=== PATIENT | female | born 1945 | race Caucasian/White ===

== ENCOUNTER 2017-09-24 05:58 | Day surgery (SDC) | payer MEDICARE, BC ==
[~2017-09-24 05:58] MED LIST: Buffered Lidocaine 0.9% SYRIN* 5 ML/SYR SYRINGE INTRADERM ONE
[2017-09-24] MEDS ORDERED: NS 0.9% 1000 ML* 1,000 ML IV SCH (06:00)
[2017-09-24] MEDS ORDERED: ceFAZolin 2 GM PREMIX (*) 2 GM/50 ML BAG IVPB ONE (06:01)
[2017-09-24] MEDS ORDERED: Buffered Lidocaine 0.9% SYRIN* 5 ML/SYR SYRINGE ONE (06:01)
[2017-09-24] MEDS ORDERED: Lidocaine 1% MPF wEPI 200,000* 30 ML SDV ONE (07:09)
[2017-09-24] MEDS ORDERED: Midazolam* 1 MG/ML 2 ML VIAL (2 MG) ONE (07:27)
[2017-09-24] MEDS ORDERED: fentaNYL* 50 MCG/ML 2 ML VIAL (100 MCG VIAL) ONE (07:27)
[2017-09-24] MEDS ORDERED: Ondansetron INJ* 2 MG/ML VIAL ONE (08:01)
[2017-09-24] MEDS ORDERED: Famotidine IV* 10 MG/ML 2 ML (20 mg) ONE (08:01)
[2017-09-24] MEDS ORDERED: Propofol* 10 MG/ML 20 ML BTL IV PUSH ONE (08:01)
[2017-09-24] MEDS ORDERED: Lidocaine 2% PF * 5 ML VIAL ONE (08:01)
[2017-09-24] MEDS ORDERED: KETAMINE HCL* 50 MG/ML 10 ML VIAL ONE (08:01)
[2017-09-24] MEDS ORDERED: Dexamethasone IV* 4 MG/ML 1 ML (4 MG) ONE (08:01)
[2017-09-24] MEDS ORDERED: Ondansetron INJ* 2 MG/ML VIAL IV PRN (08:28)
[2017-09-24] MEDS ORDERED: PROCHLORPERAZINE INJ 5 MG/ML 2 ML VIAL IV PRN (08:28)
[2017-09-24] MEDS ORDERED: Acetaminophen TAB* 325 MG PO PRN (08:28)
[2017-09-24] MEDS ORDERED: oxyCODONE/Acetamin 5/325 MG* TAB PO PRN (08:28)
[2017-09-24] MEDS ORDERED: Levalbuterol 0.63MG/3ML NEB* UNIT OF USE INH PRN (08:28)
--- NOTE | 2017-09-24 08:58 | SURGPN ---
Brief Operative Note - Surgery Procedures: Procedures Pre-OP Diagnoses: lung cancer Post-op Diagnosis: same Procedure: Insertion of powerport Surgeon: Tiera Asst: none Anethesia: local, MAC EBL: minimal IVF: minimal Specimen: none Drains: none 8Fr single lumen power port via R SCV
[2017-09-24 09:04] VITALS: BP 99/46
--- NOTE | 2017-09-24 09:24 | RAD ---
INDICATION: chest port placement COMPARISONS: None relevant TECHNIQUE: Fluoroscopy was provided for a vascular access procedure. Total fluoroscopy time is: 17.2 seconds FINDINGS: Spot images demonstrate a right-sided chest port from a sublaminar approach with the tip overlying the cavoatrial junction. Spinal stimulator leads are noted.. IMPRESSION: FLUOROSCOPY WAS PROVIDED FOR A VASCULAR ACCESS PROCEDURE CPT II Codes: 6045F
--- NOTE | 2017-09-25 01:06 | OP ---
CC: [facility]; Dr. Camryn Douglas; Magda Moreira; Dr. Emmy Jeronimo OPERATIVE REPORT: DATE OF OPERATION: 09/24/17 DATE OF : 47 SURGEON: Dago Mott MD SENIOR ADMINISTRATOR SUPPORT: None. ANESTHESIOLOGIST: Dr. Alvarez. ANESTHESIA: Local MAC anesthesia. PRE-OP DIAGNOSIS: Lung cancer. POST-OP DIAGNOSIS: Lung cancer. OPERATIVE PROCEDURE: Insertion of PowerPort. ESTIMATED BLOOD LOSS: Minimal. FLUIDS: Minimal crystalloid fluid given. SPECIMEN: None. DRAINS: An 8-Frisian PowerPort tubing placed via the right subclavian vein. DESCRIPTION OF PROCEDURE: The patient was identified in the preoperative area, marked, brought to [facility] OR and placed on the operating table in supine position. Preoperative antibiotics were given. Se quential devices were placed on bilateral lower extremities. Gentle sedation was given. The patien t's right neck and upper chest were prepped and draped in the standard surgical fashion. Time-out w as performed. Injection of lidocaine along the proposed incision site was carried out. The right subclavian vein was accessed and a wire inserted into the superior vena cava under fluoroscopy. Next, a pocket was made inferior to this stick site that would hold the PowerPort. The wire was then brought into this incision and the vein was dilated under fluoroscopy. A split-away catheter was i nserted and the 8-Frisian tubing inserted and cut to size taking note under fluoroscopy of its positi oning in the appropriate manner. This was then attached to the pre-flush PowerPort along with the h ub and sutured into the pocket with 0 Prolene sutures at the lateral, medial and at the hub site. W ound was irrigated. The port was accessed. Blood was aspirated easily and then it was flushed with saline and then followed with heparinized saline. Defect was reapproximated with 3-0 Vicryl sutures followed by 4-0 Monocryl subcuticular sutures. Steri-Strips and sterile dressing were applied. Th e patient tolerated the procedure well and was awoken up in the OR and transferred to the PACU in st able condition. [id number]/[facility] #: [id number]
== END 2017-09-24 09:25 | disposition home or self-care (01) ==
LOC: OR 05:58
PROVIDERS: ATTEND Surgery
DX: C34.02 Malignant neoplasm of left main bronchus (principal); J44.9 Chronic obstructive pulmonary disease, unspecified; J45.909 Unspecified asthma, uncomplicated; G47.33 Obstructive sleep apnea (adult) (pediatric); Z79.891 Long term (current) use of opiate analgesic; M54.5 Low back pain; Z79.899 Other long term (current) drug therapy
CPT/HCPCS: 71010; 76000; C1788; J0690; J1100; J1642; J2001; J2250; J2405; J2704; J3010

== ENCOUNTER 2017-11-08 14:12 | Inpatient (IN) | payer MEDICARE, BC, OTHER ==
[2017-11-08] MEDS ORDERED: Vancomycin(*) 1,250 MG in NS 0.9% 250 ML* 250 ML IVPB ONE (16:19)
[2017-11-08] MEDS ORDERED: Piperacillin/Tazobac ADVAN(*) 3.375 GM in NS 0.9% 100 ML* 100 ML IVPB ONE (16:20)
[2017-11-08 17:01] LABS: Hematocrit 28 % (35-47); Hemoglobin 9.4 g/dl (12.0-16.0); White Blood Count 0.5 10^3/ul (3.5-10.8)
[2017-11-08 17:03] LABS: Mean Corpuscular HGB Conc 34 g/dl (31-36); Mean Corpuscular Hemoglobin 29 pg (27-31); Mean Corpuscular Volume 88 fL (80-97); Mean Platelet Volume 8 um3 (7.4-10.4); Red Cell Distribution Width 17 % (10.5-15)
[2017-11-08 17:10] LABS: Add Diff/Slide Review? Slide Review Added; Comments Flag Yes
[2017-11-08 17:14] LABS: Albumin 3.3 g/dL (3.2-5.2); BUN/Creatinine Ratio 23.5 (8-20); Calcium 8.9 mg/dL (8.6-10.3); EGFR African American 68.7 (>60); EGFR Non-African American 53.4 (>60); Globulin 2.9 g/dL (2-4); Magnesium 1.7 mg/dL (1.9-2.7); Potassium 4.1 mmol/L (3.5-5.0); Total Bilirubin 0.4 mg/dL (0.2-1.0); Total Protein 6.2 g/dL (6.4-8.9)
[2017-11-08 17:15] LABS: Troponin I 0.01 ng/mL (<0.04)
[2017-11-08] MEDS ORDERED: Iodixanol* (CONTRAST) 320 MG/ML 100 ML SDV IV ONE (17:18)
--- NOTE | 2017-11-08 17:21 | RAD ---
Indication: Shortness of breath. Single frontal view of the chest performed at 1643 hours was reviewed. Comparison is made with previous exam dated September 24, 2017. Central port is in place. Neurostimulator leads are in place. Airspace disease is noted in the both lung bases. Early pneumonia should BE considered. IMPRESSION: BIBASILAR INFILTRATES. CENTRAL PORT IS IN PLACE. NEUROSTIMULATOR LEADS ARE IN PLACE.
[2017-11-08 17:48] LABS: TSH (Thyroid Stimulating Horm) 1.04 mcIU/mL (0.34-5.60)
[2017-11-08] MEDS ORDERED: Acetaminophen TAB* 325 MG PO ONE (18:01)
--- NOTE | 2017-11-08 18:13 | RAD ---
Indication: Dyspnea, lung carcinoma. Contrast: Administered 77.2 ml of VISAPAQUE 320 mg/ml CTA of the chest was performed after IV contrast administration. Coronal and sagittal reconstructed images were obtained. Comparison is made with previous exam dated November 08, 2017 at October 21, 2017. The pulmonary arterial tree is well opacified. No filling defects are noted to suggest pulmonary embolus. Aorta demonstrates no evidence of aortic dissection. No aneurysmal dilatation is noted. Precarinal adenopathy measuring up to 15 mm is noted. AP window lymph node measures up to 11 mm. Subcarinal lymph nodes measure up to 20 mm. Right hilar adenopathy measuring up to 11 mm is noted. The heart demonstrates no pericardial effusion. Areas of airspace disease is noted in the left upper lobe in the left parahilar area, inferior right upper lobe and right lower lobe posteriorly. These demonstrate air bronchograms and the possibility of pneumonia should BE considered. IMPRESSION: No evidence of pulmonary embolus is noted. Mediastinal adenopathy and hilar adenopathy are similar to that present on October 21, 2017. There has been development of airspace disease which may represent inflammatory changes or pneumonia in the left upper lobe, inferior right upper lobe, right lower lobe.
[2017-11-08] MEDS ORDERED: Acetaminophen TAB* 325 MG PO PRN (19:44)
[2017-11-08] MEDS ORDERED: Albuterol 2.5 MG/3 ML NEB.SOL* (0.083%) INH PRN (19:44)
[2017-11-08] MEDS ORDERED: NS 0.9% 1000 ML* 1,000 ML IV ONE (19:44)
[2017-11-08] MEDS ORDERED: NS 0.9% 1000 ML* 1,000 ML IV SCH (19:45)
[2017-11-08] MEDS ORDERED: Magnesium Sulfate 2 GM IV* 2 GM/50 ML BAG IVPB ONE (20:00)
[2017-11-08] MEDS ORDERED: Vancomycin per Pharmacy* NOTE FOLLOW UP PRN (21:55)
--- NOTE | 2017-11-08 22:12 | ED ---
Michael Marroquin Gabriel, scribed for aKrla Vieyra MD on 11/08/17 at 1602 . Shortness of Breath - HPI Summary HPI Summary: This patient is a 72 year old F [facility] accompanied by her daughter with a chief complaint of SOB since 2 days ago. The patient rates the pain 6/10 in severity. Patient reports pain across her shoulders and RAHMAN. Patient denies CP , fever, chills, ear ache, ABD pain, back pain, edema, anxiety, depression, d/v , and melena. Patient has had 2 treatments of chemo for her lung cancer, she also has COPD. A previous CT done at her PCP showed aggressive PNA so she was sent to the ED. - History of Current Complaint Chief Complaint: EDShortnessOfBreath Time Seen by Provider: 11/08/17 15:46 Hx Obtained From: Patient Onset/Duration: Lasting Days - 2, Still Present Current Severity: Moderate Associated Signs & Symptoms: Negative - CP, fever, chills, ear ache, ABD pain, back pain, edema, anxiety, depression, d/v, and melena - Allergy/Home Medications Allergies/Adverse Reactions: Allergies Allergy/AdvReac Type Severity Reaction Status Date / Time Adhesive Tape Allergy Rash And Verified 11/08/17 14:26 Itching Gabapentin Allergy Hives Verified 11/08/17 14:26 Nickel Allergy Rash And Verified 11/08/17 14:26 Itching Atorvastatin [From Lipitor] AdvReac Muscle Ache Verified 11/08/17 14:26 Varenicline [From Chantix] AdvReac Vomiting Verified 11/08/17 14:26 kiwi Allergy diff Uncoded 09/26/17 07:51 breathing, mouth swells Home Medications: Home Medications Calcium Carbonate [Calcium 600] 1,500 mg PO BID 11/08/17 [History Confirmed 07/18] Pramipexole TAB* [Mirapex TAB*] 0.25 mg PO BEDTIME 11/08/17 [History Confirmed 11/08/17] Pregabalin CAP(*) [Lyrica CAP(*)] 100 mg PO TID 11/08/17 [History Confirmed 07/18] Probiotic Product [Acidophilus Probiotic] 1 tab PO DAILY 11/08/17 [History Confirmed 11/08/17] oxyCODONE/Acetamin 10/325(NF) [Percocet 10/325 (NF)] 1 tab PO TID PRN 11/08/17 [ History Confirmed 11/08/17] PMH/Surg Hx/FS Hx/Imm Hx Previously Healthy: No Endocrine/Hematology History: Denies: Hx Diabetes Cardiovascular History: Denies: Hx Hypertension, Hx Pacemaker/ICD, Other Cardiovascular Problems/ Disorders Respiratory History: Reports: Hx Asthma - will bring inhalers, Hx Chronic Bronchitis, Hx Chronic Obstructive Pulmonary Disease (COPD), Hx Sleep Apnea, Other Respiratory Problems/Disorders - malignant neoplasm GI History: Reports: Hx Gastroesophageal Reflux Disease - HX OF, NO PROBLEMS NOW Denies: Other GI Disorders Musculoskeletal History: Reports: Hx Arthritis - THROUGHOUT BODY, Hx Back Problems - spondylolisthesis and spinal stenosis, Other Musculoskeletal History - FIBROMYALGIA Denies: Hx Tendonitis Sensory History: Reports: Hx Contacts or Glasses - GLASSES Denies: Hx Hearing Aid Opthamlomology History: Reports: Hx Contacts or Glasses - GLASSES Neurological History: Reports: Other Neuro Impairments/Disorders - PAIN CLINIC PT Psychiatric History: Denies: Hx Panic Disorder - Cancer History Cancer Type, Location and Year: main bronchus - Surgical History Surgery Procedure, Year, and Place: 2010 - LAMINE[place]OMY, [facility]. 1975- C SECTION, [facility]. Oct 2014 trial dorsal column stimulator, [facility] Hx Anesthesia Reactions: No Infectious Disease History: No Infectious Disease History: Denies: Traveled Outside the [place] in Last 30 Days - Family History Known Family History: Negative: Cardiac Disease - Social History Alcohol Use: None Substance Use Type: Reports: None Substance Use Comment - Amount & Last Used: oxycontin and soma Hx Tobacco Use: Yes Smoking Status (MU): Former Smoker Type: Cigarettes Amount Used/How Often: 1/2-1 PPD X 48 YEARS Length of Time of Smoking/Using Tobacco: SMOKED FOR 45 YEARS Have You Smoked in the Last Year: No Review of Systems Negative: Fever, Chills Negative: Ear Ache Negative: Chest Pain Positive: Shortness Of Breath Negative: Abdominal Pain Musculoskeletal: Negative - back pain Positive: Other - pain across her shoulders . Negative: Edema Positive: Headache Negative: Anxious, Depressed All Other Systems Reviewed And Are Negative: No Physical Exam - Summary Physical Exam Summary: Appearance: Alert, conversive, nontoxic appearing Skin: Warm, dry, no mottling, no rashes, no contusions HEENT: EOMI, PERRL, moist mucous membranes Neck: No masses on the neck, supple Respiratory: Clear to auscultation, breath sounds present, Ronchi and wheezing on the left side, 83% O2 sat on room air while sedentary Cardiovascular: RRR, pulses are symmetrical in both lower and upper extremities Abdomen: Soft, non-tender Bowel Sounds: Present Musculoskeletal: No CVA tenderness, no obvious deformity, moving all extremities in a grossly normal manner Neurological: A&Ox3, CN II-XII Intact, moving all extremities symmetrically Psychiatric: Normal affect and mood Triage Information Reviewed: Yes Vital Signs On Initial Exam: Initial Vitals Temp Pulse Resp BP Pulse Ox 99.1 F 66 16 106/53 92 11/08/17 14:26 11/08/17 14:26 11/08/17 14:26 11/08/17 14:26 11/08/17 14:26 Vital Signs Reviewed: Yes Diagnostics - Vital Signs Vital Signs Temp Pulse Resp BP Pulse Ox 11/08/17 14:26 99.1 F 66 16 106/53 92 - Laboratory Lab Results: Lab Results 11/08/17 11/08/17 11/08/17 Range/Units 16:42 16:42 16:42 WBC 0.5 L (3.5-10.8) 10^3/ul RBC 3.20 L (4.0-5.4) 10^6/ul Hgb 9.4 L (12.0-16.0) g/dl Hct 28 L (35-47) % MCV 88 (80-97) fL MCH 29 (27-31) pg MCHC 34 (31-36) g/dl RDW 17 H (10.5-15) % Plt Count 91 L (150-450) 10^3/ul MPV 8 (7.4-10.4) um3 Neut % (Auto) 29.6 L (38-83) % Lymph % (Auto) 53.2 H (25-47) % [place] % (Auto) 11.9 H (1-9) % Eos % (Auto) 4.6 (0-6) % Baso % (Auto) 0.7 (0-2) % Absolute Neuts (auto) 0.2 L* (1.5-7.7) 10^3/ul Absolute Lymphs (auto) 0.3 L (1.0-4.8) 10^3/ul Absolute Monos (auto) 0.1 (0-0.8) 10^3/ul Absolute Eos (auto) 0 (0-0.6) 10^3/ul Absolute Basos (auto) 0 (0-0.2) 10^3/ul Absolute Nucleated RBC 0 10^3/ul Nucleated RBC % 0.2 INR (Anticoag Therapy) (0.77-1.02) APTT (26.0-36.3) seconds Sodium 133 (133-145) mmol/L Potassium 4.1 (3.5-5.0) mmol/L Chloride 100 L (101-111) mmol/L Carbon Dioxide 26 (22-32) mmol/L Anion Gap 7 (2-11) mmol/L BUN 24 (6-24) mg/dL Creatinine 1.02 H (0.51-0.95) mg/dL Est GFR ( Amer) 68.7 (>60) Est GFR (Non-Af Amer) 53.4 (>60) BUN/Creatinine Ratio 23.5 H (8-20) Glucose 123 H (70-100) mg/dL Lactic Acid 2.2 H* (0.5-2.0) mmol/L Calcium 8.9 (8.6-10.3) mg/dL Magnesium 1.7 L (1.9-2.7) mg/dL Total Bilirubin 0.40 (0.2-1.0) mg/dL AST 14 (13-39) U/L ALT 14 (7-52) U/L Alkaline Phosphatase 64 (34-104) U/L Troponin I 0.01 (<0.04) ng/mL Total Protein 6.2 L (6.4-8.9) g/dL Albumin 3.3 (3.2-5.2) g/dL Globulin 2.9 (2-4) g/dL Albumin/Globulin Ratio 1.1 (1-3) TSH 1.04 (0.34-5.60) mcIU/mL 11/08/17 Range/Units 16:50 WBC (3.5-10.8) 10^3/ul RBC (4.0-5.4) 10^6/ul Hgb (12.0-16.0) g/dl Hct (35-47) % MCV (80-97) fL MCH (27-31) pg MCHC (31-36) g/dl RDW (10.5-15) % Plt Count (150-450) 10^3/ul MPV (7.4-10.4) um3 Neut % (Auto) (38-83) % Lymph % (Auto) (25-47) % Columbia % (Auto) (1-9) % Eos % (Auto) (0-6) % Baso % (Auto) (0-2) % Absolute Neuts (auto) (1.5-7.7) 10^3/ul Absolute Lymphs (auto) (1.0-4.8) 10^3/ul Absolute Monos (auto) (0-0.8) 10^3/ul Absolute Eos (auto) (0-0.6) 10^3/ul Absolute Basos (auto) (0-0.2) 10^3/ul Absolute Nucleated RBC 10^3/ul Nucleated RBC % INR (Anticoag Therapy) 1.14 H (0.77-1.02) APTT 24.7 L (26.0-36.3) seconds Sodium (133-145) mmol/L Potassium (3.5-5.0) mmol/L Chloride (101-111) mmol/L Carbon Dioxide (22-32) mmol/L Anion Gap (2-11) mmol/L BUN (6-24) mg/dL Creatinine (0.51-0.95) mg/dL Est GFR ( Amer) (>60) Est GFR (Non-Af Amer) (>60) BUN/Creatinine Ratio (8-20) Glucose (70-100) mg/dL Lactic Acid (0.5-2.0) mmol/L Calcium (8.6-10.3) mg/dL Magnesium (1.9-2.7) mg/dL Total Bilirubin (0.2-1.0) mg/dL AST (13-39) U/L ALT (7-52) U/L Alkaline Phosphatase (34-104) U/L Troponin I (<0.04) ng/mL Total Protein (6.4-8.9) g/dL Albumin (3.2-5.2) g/dL Globulin (2-4) g/dL Albumin/Globulin Ratio (1-3) TSH (0.34-5.60) mcIU/mL Result Diagrams: 11/08/17 16:42 11/08/17 16:42 Lab Statement: Any lab studies that have been ordered have been reviewed, and results considered in the medical decision making process. Course/Dx - Course Assessment/Plan: I spoke to Dr. Cooley. We discussed the case. He agreed with admission. He will evaluate the patient on an in patient basis. I spoke to the hospitalist who will admit. Pt is in stable condition at time of admission. she is conversive. - Diagnoses Provider Diagnoses: Pneumonia, Hypoxia, Lung cancer - Physician Notifications Discussed Care of Patient With: Vanessa Prieto Time Discussed With Above Provider: 18:24 Instructed by Provider To: Admit As Inpatient - Dr. prieto recommended calling oncology group for admittance. Discharge - Discharge Plan Condition: Stable Disposition: ADMITTED TO [facility] Consult Consult: 18:[address] Cooley, oncology. He recommended admitting the patient and he will evaluate her tomorrow. The documentation as recorded by the Michael jackson Gabriel accurately reflects the service I personally performed and the decisions made by me, Karla Vieyra MD.
[2017-11-08 22:30] LABS: Urine Bacteria 1+ (Absent); Urine Bilirubin Negative (Negative); Urine Glucose Negative (Negative); Urine Nitrite Negative (Negative)
[2017-11-08] MEDS: Albuterol/Ipratropium NEB.SOL* Albuterol 2.5 MG/Ipratropium 0.5 MG 3 ML INH SCH ×3 (22:34→23:52)
--- NOTE | 2017-11-08 23:20 | HP ---
CC: Dr. Jeronimo; Dr. Douglas * HISTORY AND PHYSICAL: DATE OF ADMISSION: 11/08/17 PRIMARY CARE PROVIDER: Dr. Jeronimo. ATTENDING PHYSICIAN WHILE IN THE HOSPITAL: Alexis Carlson MD * (report dictated by Sunil Bobo NP). CHIEF COMPLAINT: 1. Cough. 2. Shortness of breath. HISTORY OF PRESENT ILLNESS: Mrs. Crocker is a 72-year-old female patient. She has a history of COPD, lung cancer and a history of chronic back pain, who recently had chemo on the 30 of October. She follows with Dr. Douglas. She states unfortunately over the last few days, she has had progressive worsening shortness of breath, cough, and bringing up a brown type sputum, has not been feeling well. She has been aching all over. She has been feeling hot at times and having aching all over, cough. Shortness of breath is progressively getting worse. She started out with a feeling congested. She states her daughters have been sick. There was a concern today because she was just more short of breath, she was weak. She was evaluated in Oncology and they are concerned because she was short of breath, she was noted to be hypoxic. The daughter could not get her O2 saturations above 90% on room air. They send her to the ED. She was evaluated and ultimately found to have pneumonia and we were asked to evaluate for admission. PAST MEDICAL HISTORY: Significant for: 1. COPD. 2. Back pain. 3. Lung cancer. PAST SURGICAL HISTORY: 1. She has had a port placement. 2. . 3. Back surgery. 4. TENS unit placement. MEDICATIONS: Home meds according to her list include: 1. Melatonin 5 mg p.o. at bedtime as needed. 2. Homeopathic products one capsule p.o. daily. 3. Vitamin B complex one tablet p.o. at bedtime. 4. Ventolin two puffs inhaled b.i.d. as needed. 5. Probiotic one tablet p.o. daily. 6. Lyrica 100 mg p.o. t.i.d. 7. Multivitamin one tablet daily. 8. Percocet one tablet p.o. t.i.d. as needed. 9. Mirapex 0.25 mg at bedtime. 10. She takes OxyContin 10 mg every 12 hours. 11. Multivitamin one tablet p.o. daily. 12. Ibuprofen 400 mg p.o. b.i.d. as needed. 13. Advair one puff inhaled b.i.d. 14. Calcium carbonate 1500 mg p.o. b.i.d. 15. Amitriptyline 25 mg at bedtime. 16. Soma 350 mg p.o. t.i.d. as needed. ALLERGIES TO MEDICATIONS: Include TAPE, GABAPENTIN, NICKEL, ATORVASTATIN, CHANTIX. FAMILY HISTORY: Mother had a history of breast cancer, diabetes. Father had a history of NC. SOCIAL HISTORY: She is a former smoker. She quit in 2010. Does not drink alcohol. Surrogate decision maker is her daughter. REVIEW OF SYSTEMS: There is no documented fever here. She says she had been having temperature of 99.6. She denies having any significant weight change. Denies having any double vision or ear discharge. There was rhinorrhea. There is no sore throat. No thyroid enlargement. She denied having any chest pain. She does admit to having shortness of breath. She does admit to having a cough. She denies having any abdominal pain. There was no nausea, no vomiting, no dysuria, no frequency, no seizure, no loss of consciousness. Review of 14 systems completed, all others negative. PHYSICAL EXAMINATION GENERAL: At this time, Mrs. Crocker is a 72-year-old female patient. She is sitting in the ED stretcher. She does not appear to be in any acute respiratory distress. She is awake and she is alert. VITAL SIGNS: Blood pressure 139/55, pulse 114, respirations 23, O2 sat 91% but one does reviewed from 4 o'clock when I saw her, then in there she was 94%, temperature 99.1. HEENT: Head: Atraumatic. Eyes: EOMs are intact. Sclerae are anicteric. Not pale. Throat: Oral mucosa appears to be moist. No oropharyngeal erythema. NECK: Supple. LUNGS: Wheezing throughout. She did have some rhonchi in the upper lobes. Equal diaphragmatic expansion. HEART: Sounds S1, S2. Regular rate and rhythm. No murmurs, rubs, or gallops. ABDOMEN: Soft, flat, nontender. Bowel sounds are present. EXTREMITIES: Pulses are 2+ throughout. No peripheral edema. NEUROLOGIC: She is awake, alert, and oriented x3. No gross focal deficits. SKIN: Intact. DIAGNOSTIC STUDIES/LAB DATA: WBC of 0.5, RBC of 3.20, hemoglobin 9.4, hematocrit 28, platelet count 91. Sodium is 133, potassium 4.1, chloride of 100 , bicarb was 26, BUN 24, creatinine 1.02, glucose 123, lactate 2.2, calcium was 8.9, and mag was 1.7. Total bili 0.4, AST 14, ALT 14, alk phos 64. Troponin 0.01, albumin of 3.3, TSH 1.04. She did have a chest CTA, impression: No evidence of PE, mediastinal adenopathy , and hilar adenopathy similar to the present on October 21 exam. There is development of airspace disease, which may represent inflammatory change and pneumonia in the left upper lobe, inferior right upper lobe and right lower lobe. She had chest x-ray obtained today, impression: Bibasilar infiltrates, central port in place, neuro stimulator leads are in place. Old medical records were reviewed. ASSESSMENT AND PLAN: Mrs. Crocker is a 72-year-old female patient coming into the ED today with complaints of cough and worsening shortness of breath. On evaluation, found to have bilateral pneumonia. She will be admitted under inpatient status for: 1. Sepsis as evidenced by she has got a low white count. In addition to this, she is neutropenic, she is tachycardiac. The plan will be to give her an additional liter of fluids to reach a total of 30 cc/kg. She has already got one here in the ED. I will also place her on vanco, cefepime 2 g every 8 hours as needed for neutropenia. In addition to this, also put on azithromycin, get Strep pneumo antigens in addition to Legionella antigens. I will also get a rapid flu swab and we will continue to follow. 2. Chronic obstructive pulmonary disease with exacerbation. We will go ahead and put her on nebs and steroids. I did touch base with Dr. Cooley. I feel it would be okay to start steroids at this point and put her on Dulera and standing nebulizers. 3. History of lung cancer. Defer the management to the primary team. 4. Chronic back pain. Continue meds as prescribed. 5. Pancytopenia is probably secondary to chemo. We will continue to follow. Repeat labs in the morning. 6. DVT prophylaxis. She is high risk. Platelets are 91,000. I am going to put her on heparin. We will monitor her closely. If they dropped, we will stop the heparin. 9. Fluids, electrolytes, and nutrition. She can have a regular diet. 10. Code status: Full code. TIME SPENT: On the admission was 60 minutes; greater than half the time was spent [id number] with the patient obtaining my history and physical, other half of the time spent going over the plan of care with the patient and implementing plan of care. I did discuss plan of care with my attending, Dr. Carlson; he is in agreement. SUNIL BOBO, ANNETTE [id number]/[facility] #: [id number] YANDY
[2017-11-08] MEDS: Mometasone/Formoter 200/5 MDI INH SCH (23:45)
[2017-11-08] MEDS: Pramipexole TAB* 0.125 MG PO SCH (23:46)
[2017-11-08] MEDS: Carisoprodol TAB* 350 MG PO PRN (23:47)
[2017-11-08] MEDS: predniSONE TAB* 20 MG PO SCH (23:47)
[2017-11-08] MEDS: Pregabalin CAP(*) 100 MG PO SCH (23:48)
[2017-11-08] MEDS: Amitriptyline TAB* 25 MG PO SCH (23:48)
[2017-11-08] MEDS: oxyCODONE SR TAB(*) 10 MG TAB.SR PO SCH (23:48)
[2017-11-08] MEDS: Heparin VIAL(*) 5000 UNITS/ML VIAL (FIVE THOUSAND) SUBCUT SCH (23:49)
[2017-11-09] MEDS: Cefepime 2 GM in Dextrose(*) 2 GM/50 ML BAG IV SCH ×2 (02:18→22:09)
[2017-11-09] MEDS: Azithromycin IV(*) 250 MG in NS 0.9% 250 ML* 250 ML IVPB SCH ×2 (03:01→23:18)
[2017-11-09] MEDS: Vancomycin(*) 1,000 MG in NS 0.9% 250 ML* 250 ML IVPB SCH ×2 (06:02→17:59)
[2017-11-09] MEDS: Heparin VIAL(*) 5000 UNITS/ML VIAL (FIVE THOUSAND) SUBCUT SCH ×3 (06:02→22:08)
[2017-11-09] MEDS: Albuterol/Ipratropium NEB.SOL* Albuterol 2.5 MG/Ipratropium 0.5 MG 3 ML INH SCH ×6 (06:22→23:22)
--- NOTE | 2017-11-09 07:24 | HP ---
H&P (Free Text) History and Physical: Mrs Crocker is a 72F HX COPD, lung CA presenting with several days of SOB, productive cough, and malaise found to have neutropenic sepsis & COPD exacerbation will be admitted for respiratory management, IVFs, & IV ABX.
[2017-11-09] MEDS: Mometasone/Formoter 200/5 MDI INH SCH ×2 (07:47→20:12)
[2017-11-09 08:38] LABS: Add Diff/Slide Review? Slide Review Added; Comments Flag Yes; Hematocrit 27 % (35-47); Hemoglobin 9.1 g/dl (12.0-16.0); Mean Corpuscular HGB Conc 34 g/dl (31-36); Mean Corpuscular Hemoglobin 29 pg (27-31); Mean Corpuscular Volume 88 fL (80-97); Mean Platelet Volume 8 um3 (7.4-10.4); Red Cell Distribution Width 17 % (10.5-15); White Blood Count 0.7 10^3/ul (3.5-10.8)
[2017-11-09 08:47] LABS: BUN/Creatinine Ratio 21.7 (8-20); Calcium 8.8 mg/dL (8.6-10.3); EGFR African American 87.2 (>60); EGFR Non-African American 67.8 (>60); Potassium 4.1 mmol/L (3.5-5.0)
[2017-11-09] MEDS: Pregabalin CAP(*) 100 MG PO SCH ×3 (10:16→20:58)
[2017-11-09] MEDS: predniSONE TAB* 20 MG PO SCH (10:16)
[2017-11-09] MEDS: oxyCODONE SR TAB(*) 10 MG TAB.SR PO SCH ×2 (10:16→20:59)
[2017-11-09] MEDS: Prenatal Vitamin TAB PO SCH (10:16)
[2017-11-09] MEDS ORDERED: NS 0.9% 1000 ML* 1,000 ML IV SCH (11:43)
[2017-11-09] MEDS: Amitriptyline TAB* 25 MG PO SCH (20:58)
[2017-11-09] MEDS: Pramipexole TAB* 0.125 MG PO SCH (20:58)
[2017-11-09] MEDS: Carisoprodol TAB* 350 MG PO PRN (22:03)
[2017-11-09] MEDS: oxyCODONE/Acetamin 5/325 MG* TAB PO PRN (23:27)
[2017-11-10] MEDS: Albuterol/Ipratropium NEB.SOL* Albuterol 2.5 MG/Ipratropium 0.5 MG 3 ML INH SCH ×6 (03:11→23:09)
[2017-11-10] MEDS: Heparin VIAL(*) 5000 UNITS/ML VIAL (FIVE THOUSAND) SUBCUT SCH (05:29)
[2017-11-10] MEDS ORDERED: Vancomycin Trough Check NOTE FOLLOW UP ONE (05:30)
[2017-11-10 06:13] LABS: BUN/Creatinine Ratio 30.3 (8-20); Calcium 8.3 mg/dL (8.6-10.3); EGFR African American 113.5 (>60); EGFR Non-African American 88.3 (>60); Potassium 3.7 mmol/L (3.5-5.0)
[2017-11-10 06:17] LABS: Hematocrit 23 % (35-47); Hemoglobin 7.5 g/dl (12.0-16.0); Mean Corpuscular HGB Conc 34 g/dl (31-36); Mean Corpuscular Hemoglobin 29 pg (27-31); Mean Corpuscular Volume 87 fL (80-97); Mean Platelet Volume 8 um3 (7.4-10.4); Red Blood Count 2.58 10^6/ul (4.0-5.4); Red Cell Distribution Width 17 % (10.5-15)
[2017-11-10 06:18] LABS: Comments Flag Yes
[2017-11-10 06:19] LABS: Add Diff/Slide Review? Slide Review Added; White Blood Count 1.9 10^3/ul (3.5-10.8)
[2017-11-10] MEDS: Vancomycin(*) 1,000 MG in NS 0.9% 250 ML* 250 ML IVPB SCH ×3 (06:33→21:22)
[2017-11-10] MEDS: Mometasone/Formoter 200/5 MDI INH SCH ×2 (08:14→19:21)
[2017-11-10] MEDS ORDERED: GuaiFENesin DM* 5 ML UDC PO PRN (08:39)
[2017-11-10] MEDS: oxyCODONE SR TAB(*) 10 MG TAB.SR PO SCH ×2 (08:55→21:23)
[2017-11-10] MEDS: Prenatal Vitamin TAB PO SCH (08:55)
[2017-11-10] MEDS: predniSONE TAB* 20 MG PO SCH (08:55)
[2017-11-10] MEDS: Pregabalin CAP(*) 100 MG PO SCH ×3 (08:55→19:42)
[2017-11-10] MEDS: Carisoprodol TAB* 350 MG PO PRN (19:34)
[2017-11-10] MEDS: Amitriptyline TAB* 25 MG PO SCH (19:40)
[2017-11-10] MEDS: Pramipexole TAB* 0.125 MG PO SCH (19:49)
[2017-11-10] MEDS: oxyCODONE/Acetamin 5/325 MG* TAB PO PRN (19:49)
[2017-11-10] MEDS ORDERED: LORazepam INJ* 2 MG/ML 1 ML VIAL IV PUSH PRN (23:05)
[2017-11-10] MEDS: Cefepime 2 GM in Dextrose(*) 2 GM/50 ML BAG IV SCH (23:29)
[2017-11-10] MEDS ORDERED: LORazepam INJ* 2 MG/ML 1 ML VIAL ONE (23:34)
[2017-11-11] MEDS: Azithromycin IV(*) 250 MG in NS 0.9% 250 ML* 250 ML IVPB SCH ×2 (00:49→22:12)
[2017-11-11] MEDS: Albuterol/Ipratropium NEB.SOL* Albuterol 2.5 MG/Ipratropium 0.5 MG 3 ML INH SCH ×6 (04:31→23:06)
[2017-11-11] MEDS: Vancomycin(*) 1,000 MG in NS 0.9% 250 ML* 250 ML IVPB SCH ×3 (06:03→19:48)
[2017-11-11 06:51] LABS: Hematocrit 26 % (35-47); Mean Corpuscular HGB Conc 34 g/dl (31-36); Mean Corpuscular Hemoglobin 29 pg (27-31); Mean Corpuscular Volume 86 fL (80-97); Mean Platelet Volume 9 um3 (7.4-10.4); Red Blood Count 3.07 10^6/ul (4.0-5.4); Red Cell Distribution Width 17 % (10.5-15); White Blood Count 9.1 10^3/ul (3.5-10.8)
[2017-11-11 06:52] LABS: Add Diff/Slide Review? Slide Review Added; Comments Flag Yes
[2017-11-11] MEDS: Mometasone/Formoter 200/5 MDI INH SCH ×2 (07:24→20:05)
[2017-11-11] MEDS: Prenatal Vitamin TAB PO SCH (08:27)
[2017-11-11] MEDS: predniSONE TAB* 20 MG PO SCH (08:27)
[2017-11-11] MEDS: oxyCODONE SR TAB(*) 10 MG TAB.SR PO SCH ×2 (08:27→20:22)
[2017-11-11] MEDS: Pregabalin CAP(*) 100 MG PO SCH ×3 (08:28→20:21)
[2017-11-11] MEDS: Carisoprodol TAB* 350 MG PO PRN ×3 (08:35→23:48)
--- NOTE | 2017-11-11 10:35 | PN ---
Progress Note - Progress Note Date of Service: 11/11/17 SOAP: Subjective: []Admitted 3 days ago with PNA. This AM got up to bathroom and became very SOB and hypoxic even with O2. Feels like it is harder to breath today than yesterday. Medications: Acetaminophen (Tylenol Tab*) 650 mg PO Q4H PRN PRN Reason: FEVER/PAIN Albuterol (Ventolin 2.5 Mg/3 Ml Neb.Johanny*) 2.5 mg INH Q2H PRN PRN Reason: SOB/WHEEZING Last Admin: 11/10/17 05:54 Dose: 2.5 mg Albuterol/Ipratropium (Duoneb (Albuterol 2.5 Mg/Ipratropium 0.5 Mg)) 1 neb INH [id number] AWAKE [facility] Last Admin: 11/11/17 07:24 Dose: 1 neb Amitriptyline HCl (Elavil Tab*) 25 mg PO BEDTIME JENNIFER Last Admin: 11/10/17 19:40 Dose: 25 mg Carisoprodol (Soma Tab*) 350 mg PO TID PRN PRN Reason: SPASMS Last Admin: 11/11/17 08:35 Dose: 350 mg Guaifenesin/Dextromethorphan (Robitussin Dm*) 5 ml PO Q4H PRN PRN Reason: COUGH Last Admin: 11/10/17 08:55 Dose: 5 ml Heparin Sodium (Porcine) (Heparin Flush Port (Ivad)) 5 ml FLUSH DAILY JENNIFER PRN Reason: Protocol Last Admin: 11/11/17 10:19 Dose: 5 ml Azithromycin 250 mg/ Sodium (Chloride) 250 mls @ 250 mls/hr IVPB Q24H JENNIFER Last Admin: 11/11/17 00:49 Dose: 250 mls/hr Vancomycin HCl 1,000 mg/ (Sodium Chloride) 250 mls @ 166.667 mls/hr IVPB Q8H [facility] Last Admin: 11/11/17 06:03 Dose: 166.667 mls/hr Ceftriaxone Sodium 1 gm/ (Sodium Chloride) 50 mls @ 200 mls/hr IVPB Q24H [facility] Lorazepam (Ativan Inj*) 1 mg IV PUSH ONCE PRN PRN Reason: RESTLESS Mometasone Furoate/Formoterol Fumar (Dulera 200/5 Mdi*) 2 puff INH BID JENNIFER Last Admin: 11/11/17 07:24 Dose: 2 puff Multivitamins ( Vitamin Tab*) 1 tab PO DAILY JENNIFER Last Admin: 11/11/17 08:27 Dose: 1 tab Oxycodone HCl (Oxycontin(*)) 10 mg PO Q12HR JENNIFER Last Admin: 11/11/17 08:27 Dose: 10 mg Oxycodone/Acetaminophen (Percocet 5/325 Tab*) 1 tab PO Q4H PRN PRN Reason: PAIN Last Admin: 11/10/17 19:49 Dose: 1 tab Pharmacy Consult (Vancomycin Per Pharmacy*) 1 note FOLLOW UP . PRN PRN Reason: PER PROTOCOL Pharmacy Profile Note (Vancomycin Trough Check) 1 note FOLLOW UP ONCE ONE Stop: 11/11/17 13:31 Pramipexole Dihydrochloride (Mirapex Tab*) 0.25 mg PO BEDTIME JENNIFER Last Admin: 11/10/17 19:49 Dose: 0.25 mg Prednisone (Deltasone Tab*) 60 mg PO DAILY JENNIFER Last Admin: 11/11/17 08:27 Dose: 60 mg Pregabalin (Lyrica Cap(*)) 100 mg PO TID JENNIFER Last Admin: 11/11/17 08:28 Dose: 100 mg Objective: [] Vital Signs Temp Pulse Resp BP Pulse Ox 98.3 F 107 18 154/90 90 11/11/17 07:36 11/11/17 09:21 11/11/17 09:21 11/11/17 09:21 11/11/17 09:21 A&Ox3, EOMI, RICKETTS, neuro grossly non-focal HRR, S1S2 LS wheezy throughout with accessory muscle use, tachypnea Laboratory Results - last 24 hr 11/10/17 11/11/17 05:30 06:05 WBC 9.1 RBC 3.07 L Hgb 9.0 L Hct 26 L MCV 86 MCH 29 MCHC 34 RDW 17 H Plt Count 32 L MPV 9 Neut % (Auto) 70.6 Lymph % (Auto) 20.2 L [place] % (Auto) 8.6 Eos % (Auto) 0.3 Baso % (Auto) 0.3 Absolute Neuts (auto) 6.4 Absolute Lymphs (auto) 1.9 Absolute Monos (auto) 0.8 Absolute Eos (auto) 0 Absolute Basos (auto) 0 Absolute Nucleated RBC 0.03 Nucleated RBC % 0.3 Blood Type A Positive Antibody Screen Negative Crossmatch See Detail Assessment: []72 yo female admitted with bilat. PNA appearing initially to improve, however now with worsening dyspnea. Plan: []1. Pneumonia: gram + cocci on sputum with culture pending, cont. Vanco and Azithromycin, but with normalized ANC can drop cefepime to ceftriaxone 2. SOB and wheezing: stat nebs, recheck X-ray, stop fluids, check BNP. If cont. 's to decline may want to add anti-fungal d/t 1+ fungal hyphae on sputum 3. Thrombocytopenia: no anti-coags, follow
--- NOTE | 2017-11-11 10:53 | RAD ---
Indication: Shortness of breath, hypoxia. Single frontal view of the chest performed at 1034 hours was reviewed. Comparison is made with previous exam dated November 08, 2017. There is progressive airspace disease in the right upper lobe. Central catheter is in place. Bibasilar infiltrates still remain in place. IMPRESSION: PROGRESSING RIGHT UPPER LOBE INFILTRATE.
[2017-11-11] MEDS ORDERED: cefTRIAXone(*) 1 GM in NS 0.9% 50 ML* 50 ML IVPB SCH (11:00)
[2017-11-11] MEDS: cefTRIAXone(*) 1 GM in D5W 50 ML BAG* 50 ML IVPB SCH (11:25)
[2017-11-11] MEDS ORDERED: Furosemide IV* 10 MG/ML 2 ML VIAL (20 MG) IV SLOW PU ONE (13:02)
[2017-11-11] MEDS ORDERED: Vancomycin Trough Check NOTE FOLLOW UP ONE (13:30)
--- NOTE | 2017-11-11 15:24 | ECHO ---
Patient: BRIE ALAS [facility] Rec#: [id number] : 1945 Date: 11/11/2017 Age: 72y Height: 152.4 cm / 60.0 in Weight: 83.01 kg / 183.0 lbs Sex: F BSA: 1.8 Room#: 421 Admit Date#: 11/08/2017 Type: Inpatient Referring: Allison Vaca Reading: Stephane Joshi MD Animal Behaviourist: Yuni Andrea,CICICS,RDMS CC: Emmy Jeronimo MD CC: Misael ALONSO,Camryn Ramirez Transthoracic Echocardiogram Indication: Abnormal EKG, SOB, elevated BNP BP: 172/68 HR: 104 Rhythm: Tachycardia Findings History: COPD, lung cancer, chemotherapy, former smoker Technical Comments: The study quality is good. Left Ventricle: The left ventricular chamber size is normal. Mild concentric left ventricular hypertrophy is observed. Global left ventricular wall motion and contractility are within normal limits. There is normal left ventricular systolic function. The estimated ejection fraction is 55-60%. There is no consistent Doppler evidence of clinically significant diastolic dysfunction. Left Atrium: The left atrial chamber size is normal. Right Ventricle: The right ventricular chamber size and systolic function are within normal limits. Right Atrium: The right atrial cavity size is normal. Aortic Valve: The aortic valve is trileaflet. The aortic valve leaflets are mildly thickened. There is moderate aortic regurgitation. There is mild aortic stenosis. Mitral Valve: The mitral valve leaflets are mildly thickened. There is a trace of mitral regurgitation. There is no evidence of mitral stenosis. Tricuspid Valve: The tricuspid valve leaflets are normal. There is trace tricuspid regurgitation. There is evidence of mild to moderate pulmonary hypertension. Pulmonic Valve: There is no evidence of pulmonic valve thickening. There is no evidence of pulmonic regurgitation. Pericardium: There is no significant pericardial effusion. Aorta: The aortic root appears normal. The aortic arch is not well visualized. Pulmonary Artery: The main pulmonary artery appears normal. Venous: The inferior vena cava appears normal in size. There is an approximate 50% respiratory change in the inferior vena cava dimension. Summary: There was not any prior study for comparison. Conclusions Mild concentric left ventricular hypertrophy is observed. Global left ventricular wall motion and contractility are within normal limits. There is normal left ventricular systolic function. The estimated ejection fraction is 55-60%. The right ventricular chamber size and systolic function are within normal limits. There is moderate aortic regurgitation. There is mild aortic stenosis. There is a trace of mitral regurgitation. There is trace tricuspid regurgitation. There is evidence of mild to moderate pulmonary hypertension. There is no significant pericardial effusion. Measurements Name Value Normal Range RVIDd (AP) 2D 2.5 cm (0.9 - 2.6) RVDdMajor (2D) 3.5 cm (2.2 - 4.4) RAd ISD 4CH 4.9 cm (3.4 - 4.9) RA (A4C)W 4 cm (2.9 - 4.6) IVSd (2D) 1.3 cm (0.6 - 1) LVPWd (2D) 1.2 cm (0.6 - 1) LVIDd (2D) 3.7 cm (3.6 - 5.4) LVIDs (2D) 2.9 cm - LV FS (2D) 21 % (25 - 45) Aortic Annulus 2 cm (1.4 - 2.6) Ao root diameter (2D) 2.2 cm (2.1 - 3.5) Ascending Ao 2.6 cm (2.1 - 3.4) LA dimension (AP) 2D 3.8 cm (2.3 - 3.8) LAd ISD 4CH 5.1 cm (2.9 - 5.3) LA ISD 4CH W 4.1 cm (2.5 - 4.5) Name Value Normal Range LA ESV SP 4CH (A/L) 32.32 ml - LA ESV SP 2CH (A/L) 46.59 ml - LA ESV BP (A/L) 39.68 ml - LA ESV BP (A/L) index 22 ml/m2 - LA ESV SP 4CH (MOD) 29.47 ml - LA ESV SP 2CH (MOD) 44.06 ml - Name Value Normal Range MV E-wave Vmax 0.5 m/sec - MV deceleration time 75 msec - MV A-wave Vmax 0.9 m/sec - MV E:A ratio 0.6 ratio - LV septal e' Vmax 0.06 m/sec - LV lateral e' Vmax 0.07 m/sec - LV E:e' septal ratio 8.3 ratio - LV E:e' lateral ratio 7 ratio - Name Value Normal Range AV Vmax 1.7 m/sec - AV VTI 28.2 cm - AV peak gradient 11.9 mmHg - AV mean gradient 6.1 mmHg - LVOT Vmax 1.4 m/sec - LVOT VTI 22.2 cm - LVOT peak gradient 8 mmHg - LVOT mean gradient 3.5 mmHg - Name Value Normal Range TR Vmax 2.8 m/sec - TR peak gradient 31 mmHg - RAP 8 mmHg - RVSP 49 mmHg - IVC diameter 1.5 cm - Name Value Normal Range PV Vmax 1.1 m/sec - PV peak gradient 5 mmHg -
[2017-11-11] MEDS: Pramipexole TAB* 0.125 MG PO SCH (20:20)
[2017-11-11] MEDS ORDERED: CMCS Melatonin (NF) 3 MG TAB PO PRN (20:20)
[2017-11-11] MEDS: oxyCODONE/Acetamin 5/325 MG* TAB PO PRN (20:22)
[2017-11-11] MEDS: Amitriptyline TAB* 25 MG PO SCH (20:23)
[2017-11-12] MEDS: Albuterol/Ipratropium NEB.SOL* Albuterol 2.5 MG/Ipratropium 0.5 MG 3 ML INH SCH ×6 (00:21→19:38)
[2017-11-12] MEDS: oxyCODONE/Acetamin 5/325 MG* TAB PO PRN ×5 (03:40→23:46)
[2017-11-12 04:43] LABS: Hematocrit 29 % (35-47); Hemoglobin 9.7 g/dl (12.0-16.0); Mean Corpuscular HGB Conc 34 g/dl (31-36); Mean Corpuscular Hemoglobin 29 pg (27-31); Mean Corpuscular Volume 86 fL (80-97); Mean Platelet Volume 9 um3 (7.4-10.4); Red Blood Count 3.34 10^6/ul (4.0-5.4); Red Cell Distribution Width 17 % (10.5-15); White Blood Count 14.1 10^3/ul (3.5-10.8)
[2017-11-12 04:45] LABS: Comments Flag Yes
[2017-11-12 04:46] LABS: Add Diff/Slide Review? Slide Review Added
[2017-11-12 05:09] LABS: Albumin 3.1 g/dL (3.2-5.2); BUN/Creatinine Ratio 22.1 (8-20); Calcium 9.1 mg/dL (8.6-10.3); EGFR African American 109.7 (>60); EGFR Non-African American 85.3 (>60); Magnesium 1.6 mg/dL (1.9-2.7); Total Bilirubin 0.5 mg/dL (0.2-1.0); Total Protein 6.1 g/dL (6.4-8.9)
[2017-11-12] MEDS: Mometasone/Formoter 200/5 MDI INH SCH ×2 (07:25→19:36)
[2017-11-12] MEDS: predniSONE TAB* 20 MG PO SCH (08:08)
[2017-11-12] MEDS: oxyCODONE SR TAB(*) 10 MG TAB.SR PO SCH ×2 (08:09→20:22)
[2017-11-12] MEDS: Pregabalin CAP(*) 100 MG PO SCH ×3 (08:09→20:21)
[2017-11-12] MEDS: Prenatal Vitamin TAB PO SCH (08:10)
[2017-11-12] MEDS: Carisoprodol TAB* 350 MG PO PRN ×2 (08:12→20:20)
[2017-11-12] MEDS: Vancomycin(*) 1,000 MG in NS 0.9% 250 ML* 250 ML IVPB SCH (08:13)
[2017-11-12] MEDS: cefTRIAXone(*) 1 GM in D5W 50 ML BAG* 50 ML IVPB SCH (10:39)
[2017-11-12] MEDS: Potassium Chlor TAB* 20 MEQ TAB.ER PO SCH ×2 (10:39→20:20)
[2017-11-12] MEDS: Pramipexole TAB* 0.125 MG PO SCH (20:18)
[2017-11-12] MEDS: Amitriptyline TAB* 25 MG PO SCH (20:20)
[2017-11-12] MEDS ORDERED: Zolpidem TAB* 5 MG PO ONE (21:00)
[2017-11-12] MEDS: OXYMETAZOLINE 0.05% BOTH NARES PRN (21:52)
--- NOTE | 2017-11-12 21:57 | CONS ---
CONSULTATION REPORT: DATE OF CONSULTATION: 11/12/17 REQUESTING PHYSICIAN: Nii Cooley MD CONSULTING SERVICE: Infectious Disease. REASON FOR CONSULTATION: Pneumonia. IMPRESSION: 1. Multilobar pneumonia. She has infiltrates seen on the CAT scan done in the left upper lobe, right upper lobe and right lower lobe. Sputum cultures growing pneumococcus, there was also a mold present. I suspect this is pneumococcal pneumonia and that the mold is a colonization of her underlying abnormal airways. 2. Chronic obstructive pulmonary disease. 3. Acute hypoxemic respiratory failure. 4. Lung cancer, undergoing chemotherapy and neutropenic on admission. RECOMMENDATIONS: Discontinue vancomycin. We will continue ceftriaxone 1 g a day and azithromycin for a couple of days, which with its anti-inflammatory effect may provide some added benefits and morbidity. HISTORY OF PRESENT ILLNESS: This is a 72-year-old woman with lung cancer, being treated with chemotherapy by Dr. Douglas. She cannot provide extensive history, which is obtained instead from review of the medical records and discussion with Allison Moser NP. Apparently, the patient had been having shortness of breath for a couple of days, so her daughter brought her to Dr. Douglas's office, she was found to be hypoxemic. She was referred to the ER on 11/08/17. CT scan was done with findings as above. She was hypoxemic into the 70s on room air. That improved to the 90s with oxygen supplementation. She was normotensive, afebrile, but tachycardic. She was started on vancomycin , cefepime, and azithromycin. Blood cultures were sent and they are negative. Urine legionella, pneumococcal antigens were negative. Influenza PCR negative. The sputum specimen was sent that showed gram positive cocci and fungal hyphae. Cultures growing pneumococcus and mold. She has been afebrile while she has been here. Her oxygen saturation is increasing to the 90s on 5 L which she has been on pretty consistently. She has no chest pain. She reports an ongoing cough, which is occasionally productive. There is no blood. She has some shortness of breath, but not at rest. She has no fevers, chills, sweats or pain. PAST MEDICAL HISTORY: 1. Lung cancer, undergoing chemotherapy. 2. Chest port for chemotherapy infusion. 3. COPD. 4. Status post . 5. Status post lumbar spine surgery. ALLERGIES: To TAPE, GABAPENTIN, CHANTIX. MEDICATIONS: 1. Tylenol. 2. Albuterol inhaler. 3. Amitriptyline. 4. Azithromycin 250 mg daily. 5. Carisoprodol as needed. 6. Ceftriaxone 1 g a day. 7. Guaifenesin as needed. 8. Heparin port flush. 9. Oxycodone. 10. Potassium. 11. Prednisone 40 mg a day. 12. Pregabalin. SOCIAL HISTORY: She lives in [place] with her and her dogs. No sick contacts. No travels. FAMILY HISTORY: Mother with breast cancer and diabetes. Father had coronary artery disease. REVIEW OF SYSTEMS: A 14-point review of systems was negative except as noted above. PHYSICAL EXAMINATION: Vital Signs: Temperature is 37, heart rate is 90, respiratory rate 20, blood pressure 144/63, oxygen saturation 96% on 5 L. In general, she is awake, not in distress. Neurologic: She is oriented x3. Follows all commands. HEENT: There is no conjunctival hemorrhage. Oropharynx without lesions. Neck is supple. Lymph nodes: There is no inguinal, axillary or ventricular lymphadenopathy. Heart is regular rate and rhythm without murmurs, rubs or gallops. Lungs: Coarse breath sounds bilaterally without wheezes or rales. Abdomen: Soft, nontender, nondistended. There are bowel sounds present. Skin: There is no rash or splinter hemorrhages. Musculoskeletal: There is no spine tenderness to palpation or joint synovitis. LABORATORY DATA: White blood cell count 14, hematocrit 9.7, platelets 44, creatinine is 0.6, BNP was 690. Magnesium 1.6. Please see impression and recommendations as outlined above. Thanks for asking to me to see Ms. Crocker in consultation. [id number]/[facility] #: [id number] YANDY
[2017-11-12] MEDS: Azithromycin IV(*) 250 MG in NS 0.9% 250 ML* 250 ML IVPB SCH (23:46)
[2017-11-13] MEDS: Albuterol/Ipratropium NEB.SOL* Albuterol 2.5 MG/Ipratropium 0.5 MG 3 ML INH SCH ×7 (00:01→23:43)
[2017-11-13] MEDS: oxyCODONE/Acetamin 5/325 MG* TAB PO PRN ×3 (03:45→16:01)
[2017-11-13 04:29] LABS: Hematocrit 29 % (35-47); Hemoglobin 9.7 g/dl (12.0-16.0); Mean Corpuscular HGB Conc 33 g/dl (31-36); Mean Corpuscular Hemoglobin 29 pg (27-31); Mean Corpuscular Volume 87 fL (80-97); Mean Platelet Volume 9 um3 (7.4-10.4); Red Blood Count 3.36 10^6/ul (4.0-5.4); Red Cell Distribution Width 17 % (10.5-15); White Blood Count 13.5 10^3/ul (3.5-10.8)
[2017-11-13 04:31] LABS: Comments Flag Yes
[2017-11-13 04:32] LABS: Add Diff/Slide Review? Slide Review Added
[2017-11-13 04:41] LABS: BUN/Creatinine Ratio 21.9 (8-20); Calcium 8.4 mg/dL (8.6-10.3); EGFR African American 117.6 (>60); EGFR Non-African American 91.5 (>60); Potassium 3.3 mmol/L (3.5-5.0)
[2017-11-13] MEDS: Mometasone/Formoter 200/5 MDI INH SCH ×2 (07:48→21:54)
[2017-11-13] MEDS ORDERED: Vancomycin Trough Check NOTE FOLLOW UP ONE (08:00)
[2017-11-13] MEDS: Pregabalin CAP(*) 100 MG PO SCH ×3 (09:40→20:02)
[2017-11-13] MEDS: oxyCODONE SR TAB(*) 10 MG TAB.SR PO SCH ×2 (09:40→21:05)
[2017-11-13] MEDS: predniSONE TAB* 20 MG PO SCH ×2 (09:41→12:58)
[2017-11-13] MEDS: Carisoprodol TAB* 350 MG PO PRN ×2 (09:41→18:23)
[2017-11-13] MEDS: Potassium Chlor TAB* 20 MEQ TAB.ER PO SCH ×2 (09:41→20:02)
[2017-11-13] MEDS: Prenatal Vitamin TAB PO SCH (09:58)
[2017-11-13] MEDS ORDERED: Benzocaine/Menthol LOZ* 1 LOZENGE MT PRN (10:33)
--- NOTE | 2017-11-13 11:20 | PN ---
Progress Note - Progress Note Date of Service: 11/13/17 SOAP: Subjective: []Wants to go home. Refused steroids as she didn't sleep. Back hurts. Hates the bed. Says she is fine. Medications: Acetaminophen (Tylenol Tab*) 650 mg PO Q4H PRN PRN Reason: FEVER/PAIN Albuterol (Ventolin 2.5 Mg/3 Ml Neb.Joahnny*) 2.5 mg INH Q2H PRN PRN Reason: SOB/WHEEZING Last Admin: 11/10/17 05:54 Dose: 2.5 mg Albuterol/Ipratropium (Duoneb (Albuterol 2.5 Mg/Ipratropium 0.5 Mg)) 1 neb INH [id number] AWAKE [facility] Last Admin: 11/13/17 10:53 Dose: 1 neb Amitriptyline HCl (Elavil Tab*) 25 mg PO BEDTIME JENNIFER Last Admin: 11/12/17 20:20 Dose: 25 mg Carisoprodol (Soma Tab*) 350 mg PO TID PRN PRN Reason: SPASMS Last Admin: 11/13/17 09:41 Dose: 350 mg Guaifenesin/Dextromethorphan (Robitussin Dm*) 5 ml PO Q4H PRN PRN Reason: COUGH Last Admin: 11/10/17 08:55 Dose: 5 ml Heparin Sodium (Porcine) (Heparin Flush Port (Ivad)) 5 ml FLUSH DAILY JENNIFER PRN Reason: Protocol Last Admin: 11/13/17 09:58 Dose: 5 ml Azithromycin 250 mg/ Sodium (Chloride) 250 mls @ 250 mls/hr IVPB Q24H JENNIFER Last Admin: 11/12/17 23:46 Dose: 250 mls/hr Ceftriaxone Sodium 1 gm/ (Dextrose) 50 mls @ 200 mls/hr IVPB Q24H JENNIFER Last Admin: 11/12/17 10:39 Dose: 200 mls/hr Lorazepam (Ativan Inj*) 1 mg IV PUSH ONCE PRN PRN Reason: RESTLESS Mometasone Furoate/Formoterol Fumar (Dulera 200/5 Mdi*) 2 puff INH BID [facility] Last Admin: 11/13/17 07:48 Dose: 2 puff Multivitamins ( Vitamin Tab*) 1 tab PO DAILY [facility] Last Admin: 11/13/17 09:58 Dose: 1 tab Oxycodone HCl (Oxycontin(*)) 10 mg PO Q12HR [facility] Last Admin: 11/13/17 09:40 Dose: 10 mg Oxycodone/Acetaminophen (Percocet 5/325 Tab*) 1 tab PO Q4H PRN PRN Reason: PAIN Last Admin: 11/13/17 09:41 Dose: 1 tab Oxymetazoline HCl (Afrin 0.05% Nasal [place]*) 2 spray BOTH NARES Q12H PRN PRN Reason: STUFFINESS Last Admin: 11/12/17 21:52 Dose: 2 spray Polyethylene Glycol/Electrolytes (Miralax*) 17 gm PO DAILY [facility] Potassium Chloride (Klor Con Er Tab*) 20 meq PO BID [facility] Last Admin: 11/13/17 09:41 Dose: 20 meq Pramipexole Dihydrochloride (Mirapex Tab*) 0.25 mg PO BEDTIME [facility] Last Admin: 11/12/17 20:18 Dose: 0.25 mg Prednisone (Deltasone Tab*) 40 mg PO DAILY [facility] Last Admin: 11/13/17 09:41 Dose: Not Given Pregabalin (Lyrica Cap(*)) 100 mg PO TID [facility] Last Admin: 11/13/17 09:40 Dose: 100 mg Throat Lozenges (Chloraseptic Daniel*) 1 daniel MT Q4H PRN PRN Reason: SORE THROAT Objective: [] Vital Signs Temp Pulse Resp BP Pulse Ox 98.0 F 92 18 147/69 97 11/13/17 03:45 11/13/17 10:58 11/13/17 10:58 11/13/17 03:45 11/13/17 10:58 A&Ox3, rocking in chair appearing anxious HRR LS wheezey throughout Laboratory Results - last 24 hr 11/13/17 11/13/17 04:10 04:10 WBC 13.5 H RBC 3.36 L Hgb 9.7 L Hct 29 L MCV 87 MCH 29 MCHC 33 RDW 17 H Plt Count 47 L MPV 9 Neut % (Auto) 66.3 Lymph % (Auto) 24.6 L Jack % (Auto) 8.6 Eos % (Auto) 0.2 Baso % (Auto) 0.3 Absolute Neuts (auto) 9.0 H Absolute Lymphs (auto) 3.3 Absolute Monos (auto) 1.2 H Absolute Eos (auto) 0 Absolute Basos (auto) 0 Absolute Nucleated RBC 0 Nucleated RBC % 0 Sodium 138 Potassium 3.3 L Chloride 104 Carbon Dioxide 28 Anion Gap 6 BUN 14 Creatinine 0.64 Est GFR ( Amer) 117.6 Est GFR (Non-Af Amer) 91.5 BUN/Creatinine Ratio 21.9 H Glucose 78 Calcium 8.4 L Assessment: []72 yo female with locally advanced Small cell lung cancer s/p C1 carbo/ etoposide c/b multi-lobular pneumonia with slow improvement. Plan: []1. Strep PNA: cont. Ceftriaxone and Azithromycin as per Infectious Disease, culture grew mold and S.Maltophilia which per ID likely colonization and will monitor for now. If no improvement would add coverage for opportunistic S.Maltophilia (Bactrim of Levaquin). 2. Hypokalemia: start PO replacement, follow daily labs 3. Insomnia: likely related to steroid dosing (infection with significant COPD) , cont. ambien but will increase to 10 mg
[2017-11-13] MEDS ORDERED: Potassium Chlor TAB* 20 MEQ TAB.ER PO ONE (11:21)
[2017-11-13] MEDS: Polyethylene Glycol 3350* 17 GM PACKET PO SCH (12:31)
[2017-11-13] MEDS: cefTRIAXone(*) 1 GM in D5W 50 ML BAG* 50 ML IVPB SCH (12:31)
[2017-11-13] MEDS: Pramipexole TAB* 0.125 MG PO SCH (20:01)
[2017-11-13] MEDS: Amitriptyline TAB* 25 MG PO SCH (20:02)
[2017-11-13] MEDS ORDERED: Potassium Chlor TAB* 20 MEQ TAB.ER PO SCH (21:00)
[2017-11-13] MEDS: Zolpidem TAB* 10 MG PO PRN (22:09)
[2017-11-13] MEDS: OXYMETAZOLINE 0.05% BOTH NARES PRN (22:10)
[2017-11-13] MEDS: Azithromycin IV(*) 250 MG in NS 0.9% 250 ML* 250 ML IVPB SCH (22:10)
[2017-11-14] MEDS ORDERED: diPHENhydraMINE PO* 50 MG PO PRN (01:00)
[2017-11-14] MEDS: Albuterol/Ipratropium NEB.SOL* Albuterol 2.5 MG/Ipratropium 0.5 MG 3 ML INH SCH (04:03)
[2017-11-14] MEDS ORDERED: Albuterol/Ipratropium NEB.SOL* Albuterol 2.5 MG/Ipratropium 0.5 MG 3 ML INH PRN (04:39)
[2017-11-14 06:33] LABS: Hematocrit 27 % (35-47); Hemoglobin 9.2 g/dl (12.0-16.0); Mean Corpuscular HGB Conc 34 g/dl (31-36); Mean Corpuscular Hemoglobin 30 pg (27-31); Mean Corpuscular Volume 87 fL (80-97); Mean Platelet Volume 8 um3 (7.4-10.4); Red Blood Count 3.12 10^6/ul (4.0-5.4); Red Cell Distribution Width 17 % (10.5-15); White Blood Count 10.9 10^3/ul (3.5-10.8)
[2017-11-14 06:36] LABS: Add Diff/Slide Review? Slide Review Added; Comments Flag Yes
[2017-11-14 06:44] LABS: Calcium 8.8 mg/dL (8.6-10.3); EGFR African American 129.2 (>60); EGFR Non-African American 100.5 (>60); Globulin 2.9 g/dL (2-4); Potassium 3.7 mmol/L (3.5-5.0); Total Bilirubin 0.4 mg/dL (0.2-1.0); Total Protein 5.9 g/dL (6.4-8.9)
[2017-11-14] MEDS: Prenatal Vitamin TAB PO SCH (08:28)
[2017-11-14] MEDS: Potassium Chlor TAB* 20 MEQ TAB.ER PO SCH ×2 (08:28→19:37)
[2017-11-14] MEDS: predniSONE TAB* 20 MG PO SCH (08:28)
[2017-11-14] MEDS: Pregabalin CAP(*) 100 MG PO SCH ×3 (08:28→19:36)
[2017-11-14] MEDS: oxyCODONE SR TAB(*) 10 MG TAB.SR PO SCH ×2 (08:28→19:37)
[2017-11-14] MEDS: Polyethylene Glycol 3350* 17 GM PACKET PO SCH ×2 (08:29→08:31)
[2017-11-14] MEDS: Carisoprodol TAB* 350 MG PO PRN ×3 (08:29→22:22)
[2017-11-14] MEDS: Mometasone/Formoter 200/5 MDI INH SCH ×2 (08:37→19:42)
[2017-11-14] MEDS: Enoxaparin(*) 40 MG/0.4 ML SYR SUBCUT SCH (09:42)
--- NOTE | 2017-11-14 09:43 | PN ---
Progress Note - Progress Note Date of Service: 11/14/17 SOAP: Subjective: feeling much better than when she came in. wants to go home and frustrated that she can't get up more. still has two sores in mouth Objective: Vital Signs Temp Pulse Resp BP Pulse Ox 97.8 F 87 18 156/56 98 11/14/17 07:27 11/14/17 08:39 11/14/17 08:39 11/14/17 07:27 11/14/17 08:39 sitting up in nad perr eomi op moist 2 aphthous ulcers vesicular lesion bottom lip cta bl s2 s2 nl soft nt +bs no le edema A+O x 3, nonfocal neurological exam Laboratory Results - last 24 hr 11/14/17 11/14/17 06:17 06:17 WBC 10.9 H RBC 3.12 L Hgb 9.2 L Hct 27 L MCV 87 MCH 30 MCHC 34 RDW 17 H Plt Count 52 L MPV 8 Neut % (Auto) 61.2 Lymph % (Auto) 31.3 [place] % (Auto) 6.5 Eos % (Auto) 0.4 Baso % (Auto) 0.6 Absolute Neuts (auto) 6.7 Absolute Lymphs (auto) 3.4 Absolute Monos (auto) 0.7 Absolute Eos (auto) 0 Absolute Basos (auto) 0.1 Absolute Nucleated RBC 0.01 Nucleated RBC % 0.1 Sodium 138 Potassium 3.7 Chloride 103 Carbon Dioxide 29 Anion Gap 6 BUN 13 Creatinine 0.59 Est GFR ( Amer) 129.2 Est GFR (Non-Af Amer) 100.5 BUN/Creatinine Ratio 22.0 H Glucose 89 Calcium 8.8 Total Bilirubin 0.40 AST 16 ALT 28 Alkaline Phosphatase 67 Total Protein 5.9 L Albumin 3.0 L Globulin 2.9 Albumin/Globulin Ratio 1.0 Acetaminophen (Tylenol Tab*) 650 mg PO Q4H PRN PRN Reason: FEVER/PAIN Albuterol (Ventolin 2.5 Mg/3 Ml Neb.Johanny*) 2.5 mg INH Q2H PRN PRN Reason: SOB/WHEEZING Last Admin: 11/10/17 05:54 Dose: 2.5 mg Albuterol/Ipratropium (Duoneb (Albuterol 2.5 Mg/Ipratropium 0.5 Mg)) 1 neb INH Q4H PRN PRN Reason: SOB/WHEEZING Amitriptyline HCl (Elavil Tab*) 25 mg PO BEDTIME [facility] Last Admin: 11/13/17 20:02 Dose: 25 mg Carisoprodol (Soma Tab*) 350 mg PO TID PRN PRN Reason: SPASMS Last Admin: 11/14/17 08:29 Dose: 350 mg Enoxaparin Sodium (Lovenox(*)) 40 mg SUBCUT Q24H [facility] Guaifenesin/Dextromethorphan (Robitussin Dm*) 5 ml PO Q4H PRN PRN Reason: COUGH Last Admin: 11/10/17 08:55 Dose: 5 ml Heparin Sodium (Porcine) (Heparin Flush Port (Ivad)) 5 ml FLUSH DAILY [facility] PRN Reason: Protocol Last Admin: 11/13/17 09:58 Dose: 5 ml Azithromycin 250 mg/ Sodium (Chloride) 250 mls @ 250 mls/hr IVPB Q24H [facility] Last Admin: 11/13/17 22:10 Dose: 250 mls/hr Ceftriaxone Sodium 1 gm/ (Dextrose) 50 mls @ 200 mls/hr IVPB Q24H [facility] Last Admin: 11/13/17 12:31 Dose: 200 mls/hr Lorazepam (Ativan Inj*) 1 mg IV PUSH ONCE PRN PRN Reason: RESTLESS Mometasone Furoate/Formoterol Fumar (Dulera 200/5 Mdi*) 2 puff INH BID [facility] Last Admin: 11/14/17 08:37 Dose: 2 puff Multi-Ingredient Mouthwash/Gargle (Magic Mouth Was-Peng/Maal/Lido*) 5 ml SWISH SPIT QID [facility] Multivitamins ( Vitamin Tab*) 1 tab PO DAILY [facility] Last Admin: 11/14/17 08:28 Dose: 1 tab Oxycodone HCl (Oxycontin(*)) 10 mg PO Q12HR [facility] Last Admin: 11/14/17 08:28 Dose: 10 mg Oxycodone/Acetaminophen (Percocet 5/325 Tab*) 1 tab PO Q4H PRN PRN Reason: PAIN Last Admin: 11/13/17 16:01 Dose: 1 tab Oxymetazoline HCl (Afrin 0.05% Nasal [place]*) 2 spray BOTH NARES Q12H PRN PRN Reason: STUFFINESS Last Admin: 11/13/17 22:10 Dose: 2 spray Polyethylene Glycol/Electrolytes (Miralax*) 17 gm PO DAILY [facility] Last Admin: 11/14/17 08:31 Dose: Not Given Potassium Chloride (Klor Con Er Tab*) 20 meq PO BID JENNIFER Last Admin: 11/14/17 08:28 Dose: 20 meq Pramipexole Dihydrochloride (Mirapex Tab*) 0.25 mg PO BEDTIME JENNIFER Last Admin: 11/13/17 20:01 Dose: 0.25 mg Prednisone (Deltasone Tab*) 40 mg PO DAILY JENNIFER Last Admin: 11/14/17 08:28 Dose: 40 mg Pregabalin (Lyrica Cap(*)) 100 mg PO TID JENNIFER Last Admin: 11/14/17 08:28 Dose: 100 mg Throat Lozenges (Chloraseptic Moe*) 1 moe MT Q4H PRN PRN Reason: SORE THROAT Valacyclovir HCl (Valtrex 500 Mg (*)) 500 mg PO BID JENNIFER PRN Reason: Protocol Zolpidem Tartrate (Ambien Tab*) 10 mg PO BEDTIME PRN PRN Reason: INSOMNIA Last Admin: 11/13/17 22:09 Dose: 10 mg Assessment: 72 yo F w limited stage small cell lung cancer and COPD on curative intent carbo /etoposide admitted with multifocal pneumonia. Clinically she is improving on current antibiotics and her cancer is clearly responding by imaging. I discussed this with her daughters at length. They are (appropriately) concerned about her quality of life and wanting to stop therapy. We reviewed again that this is curative intent therapy and therefore we typically accept more upfront toxicity with the goal of cure. She is interested in pursuing further therapy and is clear with her daughters regarding this. Plan: PNA: cont iv abx and prednisone cont supplemental O2 with goal O2 sat ~90% cont dulera pancytopenia: chemotherapy induced will dose reduce 20% cycle 3 ok to add lovenox at this point for dvt prophylaxis as plts >50k oral herpes valtrex 5000 mg po bid full code
[2017-11-14] MEDS: oxyCODONE/Acetamin 5/325 MG* TAB PO PRN ×3 (11:09→22:22)
[2017-11-14] MEDS: cefTRIAXone(*) 1 GM in D5W 50 ML BAG* 50 ML IVPB SCH (11:10)
[2017-11-14] MEDS: ValACYclovir (*) 500 MG TAB PO SCH ×2 (11:19→19:37)
[2017-11-14] MEDS: Magic Mouth Was-BEN/MAAL/LIDO SWISH SPIT SCH ×3 (13:09→19:38)
[2017-11-14] MEDS: Benzocaine/Menthol LOZ* 1 LOZENGE MT PRN (19:36)
[2017-11-14] MEDS: Amitriptyline TAB* 25 MG PO SCH (19:36)
[2017-11-14] MEDS: Pramipexole TAB* 0.125 MG PO SCH (19:36)
[2017-11-14] MEDS: OXYMETAZOLINE 0.05% BOTH NARES PRN (19:38)
[2017-11-14] MEDS: Zolpidem TAB* 10 MG PO PRN (22:22)
[2017-11-14] MEDS: Azithromycin IV(*) 250 MG in NS 0.9% 250 ML* 250 ML IVPB SCH (23:06)
[2017-11-15] MEDS: Benzocaine/Menthol LOZ* 1 LOZENGE MT PRN (06:08)
[2017-11-15] MEDS: oxyCODONE/Acetamin 5/325 MG* TAB PO PRN (06:08)
[2017-11-15] MEDS: Magic Mouth Was-BEN/MAAL/LIDO SWISH SPIT SCH ×2 (06:09→08:02)
[2017-11-15 06:28] LABS: Hematocrit 29 % (35-47); Mean Corpuscular HGB Conc 34 g/dl (31-36); Mean Corpuscular Hemoglobin 30 pg (27-31); Mean Corpuscular Volume 88 fL (80-97); Mean Platelet Volume 9 um3 (7.4-10.4); Red Blood Count 3.34 10^6/ul (4.0-5.4); Red Cell Distribution Width 17 % (10.5-15); White Blood Count 10.4 10^3/ul (3.5-10.8)
[2017-11-15 06:34] LABS: Comments Flag Yes
[2017-11-15 06:35] LABS: Add Diff/Slide Review? Slide Review Added
[2017-11-15 07:15] LABS: BUN/Creatinine Ratio 23.5 (8-20); Calcium 8.6 mg/dL (8.6-10.3); EGFR African American 109.7 (>60); EGFR Non-African American 85.3 (>60); Globulin 2.6 g/dL (2-4); Total Bilirubin 0.4 mg/dL (0.2-1.0); Total Protein 5.6 g/dL (6.4-8.9)
[2017-11-15 07:33] LABS: Immature Granulocytes 8 % (0-9); Metamyelocytes % 3 % (0-2); Neutrophil % 55 % (38-83)
[2017-11-15 07:34] LABS: RBC Morphology Normal (Normal)
[2017-11-15] MEDS: oxyCODONE SR TAB(*) 10 MG TAB.SR PO SCH (08:00)
[2017-11-15] MEDS: ValACYclovir (*) 500 MG TAB PO SCH (08:00)
[2017-11-15] MEDS: predniSONE TAB* 20 MG PO SCH (08:00)
[2017-11-15] MEDS: Prenatal Vitamin TAB PO SCH (08:01)
[2017-11-15] MEDS: Pregabalin CAP(*) 100 MG PO SCH (08:01)
[2017-11-15] MEDS: Potassium Chlor TAB* 20 MEQ TAB.ER PO SCH (08:01)
[2017-11-15] MEDS: Polyethylene Glycol 3350* 17 GM PACKET PO SCH (08:02)
[2017-11-15] MEDS: Carisoprodol TAB* 350 MG PO PRN (08:02)
[2017-11-15] MEDS: Enoxaparin(*) 40 MG/0.4 ML SYR SUBCUT SCH (08:02)
[2017-11-15] MEDS: Mometasone/Formoter 200/5 MDI INH SCH (08:07)
[2017-11-15 09:47] VITALS: BP 147/123
--- NOTE | 2017-11-15 09:50 | DS ---
- Discharge Summary Admission Date: 11/08/2017 Discharge Date: 11/15/2017 Discharge Diagnosis: 1. Strep Pneumonia, bi-lobular: present on admission, improving, home on PO abx. 2. COPD: steroid taper and cont. home inhalers, home O2 initiated 3. Limited stage SCLC: resume chemotherapy next week with dose reduction Discharge Medications: 1. Acetaminophen 650 mg PO q6hrs PRN pain or fever 2. Prednisone 5 mg tabs PO taper: 30 mg daily x3 days, 20 mg daily x3 days, 10 mg daily x3 days, and 5 mg daily x3 days, then stop 3. Augmentin 875 mg PO BID x7 days 4. Albuterol 2.5mg/3mL inh q2hrs PRN wheezing 5. Albuterol/Ipratropium 2.5/0.5mg inh q4hrs PRN wheezing 6. MMW 5mL swish and spit QID 7. Potassium 20 mEq PO BID 8. Valacyclovir 500 mg PO BID 9. Miralax 17 gm PO daily 10. Carisoprodol 350 mg PO TID 11. Amitriptyline 25 mg PO qHS 12. Albuterol 2 puff inh BID PRN wheezing 13. Oxycodone 10 mg PO BID 14. Advair 500/50 1 inh BID 15. Multi-Vitamin 1 cap PO daily 16. Homeopathic 1 cap PO qHS 17. Melatonin 5 mg PO qHS PRN insomnia 18. B-complex 1 tab PO daily 19. Pregabalin 100 mg PO TID 20. Percocet 10/325 mg PO TID PRN pain 21. Pramipexole 0.25 mg PO qHS 22. Calcium Carbonate 1,500 mg PO BID Hospital Course: Please see admission note for full H&P, however briefly, Mrs. Crocker is known to our service due to her recent diagnosis of limited stage small cell lung cancer now receiving curative intent Carboplatin and Etoposide. She received her first cycle starting 10/07/17. Mrs. Crocker presented to the ER with progressive SOB on 11/08/17 (s/p C2) and was found to have bi-lobular pneumonia. She was started on Cefepime d/t neutropenia, Vancomycin, and Azithromycin. Over the next several days she cont.d to experience periods of hypoxia despite O2 and on 12/11 sputum confirmed Strep Pneumoniae. The Cefepime was changed to ceftriaxone and ID was consulted. Consultation agreed with ceftriaxone and the Vancomycin was d/cd with azithromycin cont.d to provide anti-inflammatory benefit. Prednisone was initiated due underlying COPD. As of today she is markedly improved and ready for discharge. She will go home with a steroid taper and PO antibiotics. She will follow-up with our practice on 11/27 (1 week delay both d/t infection and pt. preference) with plan for chemo and plan to reduce dose by 20%. She will also follow-up with radiation regarding initiating consolidation. Plan of care reviewed at length and all questions answered. >40 min with >50% face to face
[2017-11-15] MEDS: cefTRIAXone(*) 1 GM in D5W 50 ML BAG* 50 ML IVPB SCH (11:00)
== END 2017-11-15 12:10 | disposition home or self-care (01) | DRG 193 ==
LOC: ED 14:12 → MED 19:40
PROVIDERS: ADMIT Hospitalist; ATTEND Internal Medicine Hematology & Oncology
DX: J15.4 Pneumonia due to other streptococci (principal); D61.810 Antineoplastic chemotherapy induced pancytopenia; Z99.81 Dependence on supplemental oxygen; J44.0 Chronic obstructive pulmonary disease with (acute) lower respiratory infection; C34.90 Malignant neoplasm of unspecified part of unspecified bronchus or lung; J44.1 Chronic obstructive pulmonary disease with (acute) exacerbation; B00.89 Other herpesviral infection; R09.02 Hypoxemia; Z88.8 Allergy status to other drugs, medicaments and biological substances; G47.30 Sleep apnea, unspecified; Z91.018 Allergy to other foods; K21.9 Gastro-esophageal reflux disease without esophagitis; M19.90 Unspecified osteoarthritis, unspecified site; Z87.891 Personal history of nicotine dependence; M43.10 Spondylolisthesis, site unspecified; M48.00 Spinal stenosis, site unspecified; M79.7 Fibromyalgia; Z82.49 Family history of ischemic heart disease and other diseases of the circulatory system; Z83.3 Family history of diabetes mellitus; Z80.3 Family history of malignant neoplasm of breast; G89.29 Other chronic pain; M54.9 Dorsalgia, unspecified; T45.1X5A Adverse effect of antineoplastic and immunosuppressive drugs, initial encounter; E87.6 Hypokalemia; G47.00 Insomnia, unspecified
CPT/HCPCS: 36415; 71010; 71275; 77014; 80048; 80053; 80202; 81003; 81015; 83605; 83735; 83880; 84443; 84484; 85025; 85060; 85610; 85730; 86850; 86900; 86901; 86922; 87040; 87070; 87077; 87086; 87107; 87184; 87186; 87205; 87502; 87899; 93306; 94640; 94760; 99232; 99233; 99239; A9270-GY; J0456; J0692; J0696; J1642; J1644; J1650; J1940; J2060; J2543; J3370; J3475; J7512; P9040; Q9967

== ENCOUNTER 2018-06-08 13:31 | Emergency (ER) | payer MEDICARE, BC, OTHER ==
[2018-06-08] MEDS ORDERED: Azithromycin IV(*) 500 MG in NS 0.9% 250 ML* 250 ML IVPB ONE (14:04)
[2018-06-08] MEDS ORDERED: cefTRIAXone(*) 1 GM in NS 0.9% 50 ML* 50 ML IVPB ONE (14:04)
[2018-06-08] MEDS ORDERED: methylPREDNISolone 125 MG* 2 ML VIAL IV ONE (14:04)
[2018-06-08] MEDS ORDERED: Albuterol/Ipratropium NEB.SOL* Albuterol 2.5 MG/Ipratropium 0.5 MG 3 ML INH ONE (14:04)
[2018-06-08] MEDS ORDERED: NS 0.9% 1000 ML* 1,000 ML IV SCH (14:15)
[2018-06-08 14:46] LABS: ABS Basophils 0 10^3/ul (0-0.2); ABS Eosinophils 0.2 10^3/ul (0-0.6); ABS Lymphocytes 0.7 10^3/ul (1.0-4.8); ABS Monocytes 0.4 10^3/ul (0-0.8); ABS Neutrophils 5.5 10^3/ul (1.5-7.7); ABS Nucleated RBC 0 10^3/ul; Eosinophil % 2.2 % (0-6); Hematocrit 32 % (35-47); Hemoglobin 10.6 g/dl (12.0-16.0); Lymphocyte % 9.9 % (25-47); Mean Corpuscular HGB Conc 33 g/dl (31-36); Mean Corpuscular Hemoglobin 28 pg (27-31); Mean Corpuscular Volume 84 fL (80-97); Mean Platelet Volume 7.2 um3 (7.4-10.4); Nucleated Red Blood Cells % 0.1; Platelet Count 227 10^3/ul (150-450); Red Blood Count 3.78 10^6/ul (4.00-5.40); Red Cell Distribution Width 18 % (10.5-15); White Blood Count 6.8 10^3/ul (3.5-10.8)
[2018-06-08] MEDS ORDERED: cefTRIAXone(*) 1 GM ADVAN/BAG ONE (14:48)
--- NOTE | 2018-06-08 14:48 | RAD ---
INDICATION: Shortness of breath. COMPARISON: Comparison is made with a prior chest x-ray study from November 11, 2017. Correlation is also made with a CT of the chest from May 26, 2018. TECHNIQUE: A portable view of the chest was obtained. FINDINGS: There is a power port central venous catheter present on the right side. The catheter tip projects over the right atrium. The heart is within normal limits in size. There are perimediastinal interstitial infiltrates which appear unchanged. There is a small infiltrate at the right lung base. No pleural effusion is seen. Note is made of dorsal column stimulator leads. IMPRESSION: 1. NEW SMALL RIGHT BASILAR INFILTRATE. 2. CHRONIC PARAMEDIASTINAL INTERSTITIAL INFILTRATES.
[2018-06-08 14:57] LABS: INR 0.98 (0.77-1.02)
[2018-06-08 15:02] LABS: EGFR Non-African American 89.9 (>60)
[2018-06-08] MEDS ORDERED: Iohexol 350* (CONTRAST) 500 ML MDV IV ONE (15:46)
[2018-06-08] MEDS ORDERED: Iodixanol* (CONTRAST) 320 MG/ML 100 ML SDV IV ONE (15:58)
--- NOTE | 2018-06-08 16:49 | RAD ---
INDICATION: Shortness of breath, hypoxia, positive d-dimer. COMPARISON: Comparison is made with a prior CT of the chest from May 26, 2018. Correlation is also made with a prior CT angiogram from November 08, 2017. TECHNIQUE: A CT angiogram of the chest was performed with intravenous following intravenous injection of 72 ml of Visipaque 320 nonionic contrast. Contiguous axial sections were obtained from the lung apices through the lung bases. Images were reconstructed in the coronal and sagittal planes. FINDINGS: There is suboptimal opacification of the pulmonary arteries limiting the study. No intraluminal filling defect or pulmonary embolism is seen. The heart is within normal limits in size. No pericardial effusion is present. There are coronary artery calcifications present. The thoracic aorta is normal in caliber and demonstrates homogeneous contrast opacification. There are enlarged lymph nodes in the pretracheal and subcarinal region measuring up to 1.9 cm in transverse dimension which appear unchanged from the prior study. No enlarged hilar lymph nodes are seen. There is a small 0.7 cm nodule within the left thyroid lobe which is unchanged. There is mild to moderate centrilobular emphysematous change. There are diffuse interstitial and patchy infiltrates. These appear new have progressed in the right middle and lower lobes when compared with the most recent prior study. No pleural effusion is seen. No acute finding is seen on the images of the upper abdomen. The patient appears to have a solitary left kidney. There is deformity of the sternum with lucency in the manubrium and body of the sternum which appears unchanged suspicious for metastatic disease less likely posttraumatic change. IMPRESSION: 1. LIMITED STUDY, NO EVIDENCE FOR PULMONARY EMBOLISM. 2. DIFFUSE INTERSTITIAL AND PATCHY INFILTRATES DEMONSTRATING INTERVAL PROGRESSION IN THE RIGHT MIDDLE AND LOWER LOBES. 3. MEDIASTINAL LYMPHADENOPATHY, UNCHANGED. 4. DEFORMITY OF THE STERNUM WITH INCREASED LUCENCY, UNCHANGED MOST CONSISTENT WITH METASTATIC DISEASE LESS LIKELY POSTTRAUMATIC CHANGE.
[2018-06-08] MEDS ORDERED: Levofloxacin TAB* 250 MG PO ONE (17:52)
--- NOTE | 2018-06-08 18:11 | ED ---
Jimenez Marroquin Simon, scribed for Mal Bain MD on 06/08/18 at 1414 . Shortness of Breath - HPI Summary HPI Summary: This patient is a 72 year old F presenting to [facility] accompanied by 2 daughters with a chief complaint of SOB since this AM upon waking. My lungs hurt. PMHx emphysema, COPD. Pt on 2l O2 at home. Pt endorses CP on either side of her chest, secondary to breathing problems caused by any movement. She also endorses recent sinus issues and a decreased appetite. She denies cough, recent sickness, abd pain, calf pain, sore throat, rhinorrhea. Family endorses 02 at 78 % at home. PMHx lung cancer, in remission. - History of Current Complaint Chief Complaint: EDShortnessOfBreath Time Seen by Provider: 06/08/18 13:57 Hx Obtained From: Patient Onset/Duration: Sudden Onset, Lasting Hours, Still Present Current Severity: Moderate Dyspnea At: Rest Aggrevating Factors: Movement Alleviating Factors: Nothing Associated Signs & Symptoms: Chest Pain Unrelated to Cough - Allergy/Home Medications Allergies/Adverse Reactions: Allergies Allergy/AdvReac Type Severity Reaction Status Date / Time Adhesive Tape Allergy Rash And Verified 06/08/18 13:34 Itching atorvastatin [From Lipitor] Allergy Muscle Ache Verified 06/08/18 13:34 gabapentin Allergy Hives Verified 06/08/18 13:34 varenicline [From Chantix] Allergy Vomiting Verified 06/08/18 13:34 kiwi Allergy diff Uncoded 06/08/18 13:34 breathing, mouth swells nickel Allergy Rash And Uncoded 06/08/18 13:34 Itching PMH/Surg Hx/FS Hx/Imm Hx Endocrine/Hematology History: Denies: Hx Diabetes Cardiovascular History: Denies: Hx Hypertension, Hx Pacemaker/ICD, Other Cardiovascular Problems/ Disorders Respiratory History: Reports: Hx Asthma - will bring inhalers, Hx Chronic Bronchitis, Hx Chronic Obstructive Pulmonary Disease (COPD), Hx Sleep Apnea, Other Respiratory Problems/Disorders - malignant neoplasm GI History: Reports: Hx Gastroesophageal Reflux Disease - HX OF, NO PROBLEMS NOW Denies: Other GI Disorders History: Denies: Hx Renal Disease Musculoskeletal History: Reports: Hx Arthritis - THROUGHOUT BODY, Hx Back Problems - spondylolisthesis and spinal stenosis, Other Musculoskeletal History - FIBROMYALGIA Denies: Hx Tendonitis Sensory History: Reports: Hx Contacts or Glasses - GLASSES Denies: Hx Hearing Aid Opthamlomology History: Reports: Hx Contacts or Glasses - GLASSES EENT History: Denies: Hx Deafness Neurological History: Reports: Other Neuro Impairments/Disorders - PAIN CLINIC PT Psychiatric History: Denies: Hx Panic Disorder - Cancer History Cancer Type, Location and Year: LUNG Hx Chemotherapy: Yes Hx Radiation Therapy: Yes - Surgical History Surgery Procedure, Year, and Place: 2010 - LAMINECTOMY, [facility] [place] PORT PLACEMENT 09/2017. 1976- C SECTION, [facility]. Oct 20, 2014 trial dorsal column stimulator, [facility] - REMOVED 10/25/14; 12/16/14 M2M Solution PRECISION SPECTRA [id number], W/ ANCHOR CLICK -[id number] STIMULATOR VERY CONDITIONAL - CAN ONLY HAVE MRI OF HEAD-NO OTHER BODY PART- SCAN IN NORMAL MODE , MAX SLEW RATE -200T/m/s ( [facility] [place] 1.5T MAX IS 120 T/m/s) ---specifics on check list with pt's paper work- scanned into EMR Hx Anesthesia Reactions: No Infectious Disease History: No Infectious Disease History: Denies: Traveled Outside the [place] in Last 30 Days - Family History Known Family History: Negative: Cardiac Disease - Social History Alcohol Use: None Substance Use Type: Reports: None Substance Use Comment - Amount & Last Used: oxycontin and soma Hx Tobacco Use: Yes Smoking Status (MU): Former Smoker Type: Cigarettes Amount Used/How Often: 1/2-1 PPD X 48 YEARS Length of Time of Smoking/Using Tobacco: SMOKED FOR 45 YEARS Have You Smoked in the Last Year: No Review of Systems Negative: Fever Negative: Sore Throat, Nasal Discharge Positive: Chest Pain Positive: Shortness Of Breath. Negative: Cough Negative: Abdominal Pain Negative: Edema All Other Systems Reviewed And Are Negative: Yes Physical Exam - Summary Physical Exam Summary: General: well-appearing, no pain distress, no acute distress Skin: warm, color reflects adequate perfusion, dry Head: normal Eyes: EOMI, CARRILLO ENT: normal Neck: supple, nontender Respiratory: CTA, breath sounds present, poor air movement in the lungs Cardiovascular: RRR Abdomen: soft, nontender Bowel: present Musculoskeletal: normal, strength/ROM intact Neurological: sensory/motor intact, A&O x3 Psychological: affect/mood appropriate Triage Information Reviewed: Yes Vital Signs On Initial Exam: Initial Vitals Temp Pulse Resp BP Pulse Ox 97.5 F 85 20 118/48 96 06/08/18 13:33 06/08/18 13:33 06/08/18 13:33 06/08/18 13:33 06/08/18 13:33 Vital Signs Reviewed: Yes Diagnostics - Vital Signs Vital Signs Temp Pulse Resp BP Pulse Ox 06/08/18 13:33 97.5 F 85 20 118/48 96 - Laboratory Lab Results: Lab Results 06/08/18 06/08/18 06/08/18 Range/Units 14:35 14:35 14:35 WBC 6.8 (3.5-10.8) 10^3/ul RBC 3.78 L (4.00-5.40) 10^6/ul Hgb 10.6 L (12.0-16.0) g/dl Hct 32 L (35-47) % MCV 84 (80-97) fL MCH 28 (27-31) pg MCHC 33 (31-36) g/dl RDW 18 H (10.5-15) % Plt Count 227 (150-450) 10^3/ul MPV 7.2 L (7.4-10.4) um3 Neut % (Auto) 81.3 (38-83) % Lymph % (Auto) 9.9 L (25-47) % [place] % (Auto) 6.2 (0-7) % Eos % (Auto) 2.2 (0-6) % Baso % (Auto) 0.4 (0-2) % Absolute Neuts (auto) 5.5 (1.5-7.7) 10^3/ul Absolute Lymphs (auto) 0.7 L (1.0-4.8) 10^3/ul Absolute Monos (auto) 0.4 (0-0.8) 10^3/ul Absolute Eos (auto) 0.2 (0-0.6) 10^3/ul Absolute Basos (auto) 0 (0-0.2) 10^3/ul Absolute Nucleated RBC 0 10^3/ul Nucleated RBC % 0.1 INR (Anticoag Therapy) 0.98 (0.77-1.02) APTT 29.2 (26.0-36.3) seconds D-Dimer, Quantitative 744 H (Less Than 230) ng/mL Carbon Monoxide Screen (<4.0) % Sodium 135 (135-145) mmol/L Potassium 4.1 (3.5-5.0) mmol/L Chloride 98 L (101-111) mmol/L Carbon Dioxide 28 (22-32) mmol/L Anion Gap 9 (2-11) mmol/L BUN 14 (6-24) mg/dL Creatinine 0.65 (0.51-0.95) mg/dL Est GFR ( Amer) 108.7 (>60) Est GFR (Non-Af Amer) 89.9 (>60) BUN/Creatinine Ratio 21.5 H (8-20) Glucose 100 (70-100) mg/dL Lactic Acid (0.5-2.0) mmol/L Calcium 9.9 (8.6-10.3) mg/dL Magnesium 2.0 (1.9-2.7) mg/dL Total Bilirubin 0.30 (0.2-1.0) mg/dL AST 12 L (13-39) U/L ALT 11 (7-52) U/L Alkaline Phosphatase 86 (34-104) U/L Total Creatine Kinase 39 (10-223) U/L CK-MB (CK-2) 1.8 (0.6-6.3) ng/mL Troponin I 0.01 (<0.04) ng/mL C-Reactive Protein 201.78 H (<8.01) mg/L B-Natriuretic Peptide ( - 100) pg/mL Total Protein 7.2 (6.4-8.9) g/dL Albumin 3.6 (3.2-5.2) g/dL Globulin 3.6 (2-4) g/dL Albumin/Globulin Ratio 1.0 (1-3) Lipase < 10 L (11.0-82.0) U/L TSH 1.48 (0.34-5.60) mcIU/mL 06/08/18 06/08/18 06/08/18 Range/Units 14:35 14:35 14:35 WBC (3.5-10.8) 10^3/ul RBC (4.00-5.40) 10^6/ul Hgb (12.0-16.0) g/dl Hct (35-47) % MCV (80-97) fL MCH (27-31) pg MCHC (31-36) g/dl RDW (10.5-15) % Plt Count (150-450) 10^3/ul MPV (7.4-10.4) um3 Neut % (Auto) (38-83) % Lymph % (Auto) (25-47) % [place] % (Auto) (0-7) % Eos % (Auto) (0-6) % Baso % (Auto) (0-2) % Absolute Neuts (auto) (1.5-7.7) 10^3/ul Absolute Lymphs (auto) (1.0-4.8) 10^3/ul Absolute Monos (auto) (0-0.8) 10^3/ul Absolute Eos (auto) (0-0.6) 10^3/ul Absolute Basos (auto) (0-0.2) 10^3/ul Absolute Nucleated RBC 10^3/ul Nucleated RBC % INR (Anticoag Therapy) (0.77-1.02) APTT (26.0-36.3) seconds D-Dimer, Quantitative (Less Than 230) ng/mL Carbon Monoxide Screen < 4 (<4.0) % Sodium (135-145) mmol/L Potassium (3.5-5.0) mmol/L Chloride (101-111) mmol/L Carbon Dioxide (22-32) mmol/L Anion Gap (2-11) mmol/L BUN (6-24) mg/dL Creatinine (0.51-0.95) mg/dL Est GFR ( Amer) (>60) Est GFR (Non-Af Amer) (>60) BUN/Creatinine Ratio (8-20) Glucose (70-100) mg/dL Lactic Acid 0.6 (0.5-2.0) mmol/L Calcium (8.6-10.3) mg/dL Magnesium (1.9-2.7) mg/dL Total Bilirubin (0.2-1.0) mg/dL AST (13-39) U/L ALT (7-52) U/L Alkaline Phosphatase (34-104) U/L Total Creatine Kinase (10-223) U/L CK-MB (CK-2) (0.6-6.3) ng/mL Troponin I (<0.04) ng/mL C-Reactive Protein (<8.01) mg/L B-Natriuretic Peptide 157 H ( - 100) pg/mL Total Protein (6.4-8.9) g/dL Albumin (3.2-5.2) g/dL Globulin (2-4) g/dL Albumin/Globulin Ratio (1-3) Lipase (11.0-82.0) U/L TSH (0.34-5.60) mcIU/mL Result Diagrams: 06/08/18 14:35 06/08/18 14:35 Lab Statement: Any lab studies that have been ordered have been reviewed, and results considered in the medical decision making process. - Radiology CXR Xray Interpretation: Positive (See Comments) Radiology Interpretation Completed By: Radiologist - 1. NEW SMALL RIGHT BASILAR INFILTRATE. 2. CHRONIC PARAMEDIASTINAL INTERSTITIAL INFILTRATES. Dr. Bain has reviewed this report. - CT CTA CHEST CT Interpretation: Positive (See Comments) CT Interpretation Completed By: Radiologist - 1. LIMITED STUDY, NO EVIDENCE FOR PULMONARY EMBOLISM. 2. DIFFUSE INTERSTITIAL AND PATCHY INFILTRATES DEMONSTRATING INTERVAL PROGRESSION IN THE RIGHT MIDDLE AND LOWER LOBES. 3. MEDIASTINAL LYMPHADENOPATHY, UNCHANGED. 4. DEFORMITY OF THE STERNUM WITH INCREASED LUCENCY, UNCHANGED MOST CONSISTENT WITH METASTATIC DISEASE LESS LIKELY POSTTRAUMATIC CHANGE. Dr. Bain has reviewed this report. - EKG 1508 Cardiac Rate: NL - 88 EKG Rhythm: Sinus Rhythm ST Segment: Non-Specific - borderline ST elevation in lateral leads, RBBB Ectopy: None EKG Comparison: No Significant Change Re-Evaluation - Re-Evaluation First Eval Re-Evaluation Time: 17:00 Change: Unchanged Comment: Discussed CTA chest resuls, doubtful PE; pt wants discharge. Course/Dx - Course Course Of Treatment: DISCUSSED RESULTS WITH THE PATIENT AND HER FAMILY. IMPROVED IN ED AFTER DUONEB AND STEROIDS. GIVEN PROCEPHIN AND AZITHROMYCIN IN ED. O2 SAT 97% ON 3L NC AT REST. O2 SAT DROPS INTO THE 80S WITH AMBULATION. RECOMMENDED ADMISSION; THE PATIENT REFUSED. RX LEVAQUIN 750MG PO QD X 5 DAYS AND PREDNISONE 40MG PO QD X 4 MORE DAYS. F/U WITH PMD; RETURN IF WORSE. - Diagnoses Provider Diagnoses: Pneumonia, COPD (chronic obstructive pulmonary disease) Discharge - Sign-Out/Discharge Documenting (check all that apply): Discharge/Admit/Transfer - Discharge Plan Condition: Stable Disposition: HOME Prescriptions: Levofloxacin TAB* [Levaquin TAB*] 750 mg PO DAILY #4 tab predniSONE TAB* [Deltasone 20 MG TAB*] 40 mg PO DAILY #8 tab Patient Education Materials: Pneumonia (ED) Referrals: Emmy Jeronimo MD [Primary Care Provider] - Additional Instructions: FOLLOW UP WITH YOUR DOCTOR. RETURN TO THE EMERGENCY DEPARTMENT FOR ANY WORSENING OF YOUR CONDITION; SHORTNESS OF BREATH, YOU FEEL ILL OR QUESTIONS OR CONCERNS. - Billing Disposition and Condition Condition: STABLE Disposition: Home The documentation as recorded by the Jimenez jackson Simon accurately reflects the service I personally performed and the decisions made by me, Mal Bain MD.
[2018-06-08 19:18] VITALS: BP 119/53
== END 2018-06-08 19:00 | disposition home or self-care (01) ==
LOC: ED 13:31
DX: J18.9 Pneumonia, unspecified organism (principal); J43.9 Emphysema, unspecified; R59.1 Generalized enlarged lymph nodes; M95.4 Acquired deformity of chest and rib; Z99.81 Dependence on supplemental oxygen; Z85.118 Personal history of other malignant neoplasm of bronchus and lung; Z92.21 Personal history of antineoplastic chemotherapy; Z92.3 Personal history of irradiation; Z87.891 Personal history of nicotine dependence; Z88.8 Allergy status to other drugs, medicaments and biological substances
CPT/HCPCS: 36415; 71045; 71275; 80053; 82375; 82550; 82553; 83605; 83690; 83735; 83880; 84443; 84484; 85025; 85379; 85610; 85730; 86140; 87040; 93005; 96361; 96365; 96366; 96375; 99284; A9270-GY; J0456; J0696; J2930; Q9967

== ENCOUNTER 2019-08-09 18:55 | Inpatient (IN) | payer MEDICARE, OTHER, BC ==
[2019-08-09 20:13] LABS: ABS Eosinophils 0.2 10^3/ul (0-0.6); ABS Lymphocytes 0.8 10^3/ul (1.0-4.8); ABS Monocytes 0.6 10^3/ul (0-0.8); ABS Neutrophils 7.1 10^3/ul (1.5-7.7); Hematocrit 31 % (35-47); Hemoglobin 10.2 g/dL (12.0-16.0); Lymphocyte % 9.5 %; Mean Corpuscular HGB Conc 33 g/dL (31-36); Mean Corpuscular Hemoglobin 28 pg (27-31); Mean Corpuscular Volume 86 fL (80-97); Mean Platelet Volume 7.8 fL (7.4-10.4); Platelet Count 236 10^3/uL (150-450); Red Cell Distribution Width 17 % (10-15); White Blood Count 8.8 10^3/uL (3.5-10.8)
[2019-08-09 20:25] LABS: Activated Partial Thrombo Time 35.3 seconds (26.0-38.0); INR 1.11 (0.82-1.09)
[2019-08-09 20:30] LABS: Albumin 3.6 g/dL (3.2-5.2); BUN/Creatinine Ratio 19.8 (8-20); Calcium 8.9 mg/dL (8.6-10.3); EGFR African American 78.3 (>60); EGFR Non-African American 64.7 (>60); Globulin 3.5 g/dL (2-4); Potassium 4.2 mmol/L (3.5-5.0); Total Bilirubin 0.3 mg/dL (0.2-1.0); Total Protein 7.1 g/dL (6.4-8.9)
[2019-08-09 20:32] LABS: Troponin I 0.01 ng/mL (<0.04)
[2019-08-09] MEDS ORDERED: cefTRIAXone(*) 1 GM in NS 0.9% 50 ML* 50 ML IVPB ONE (21:27)
[2019-08-09] MEDS ORDERED: Azithromycin 500 mg/250 ml NS 500 MG/250 ML BAG IVPB ONE (21:27)
--- NOTE | 2019-08-09 21:28 | ED ---
Respiratory - HPI Summary HPI Summary: Patient is a 74 y/o F w/ Hx of lung cancer that is currently in remission, COPD , who presents to [facility] with daughter with complaints of fever, hemoptysis and SOB for the past week. She states that she feels congested and endorses decreased appetite and wheezing as well. She denies chest pain, N/V. Highest temperature was 102 F. No recent sick contacts at home noted. PMHx of COPD, patient has inhalers but is not on steroids for this. Patient denies recent travel and denies Hx of TB. She is a former smoker. Associated severity is rated 8/10 on triage. Home medications and allergies are reviewed. - History of Current Complaint Chief Complaint: EDFluSymptoms Stated Complaint: PNEUMONIA PER DAUGHTER Time Seen by Provider: 08/09/19 21:15 Hx Obtained From: Patient Onset/Duration: Lasting Weeks, Still Present Timing: Constant Current Severity: Severe Pain Intensity: 8 Character: Wheezing, Cough (Productive) - blood Sputum Color: Red (Blood) Associated Signs and Symptoms: Fever, Wheezing - Allergy/Home Medications Allergies/Adverse Reactions: Allergies Allergy/AdvReac Type Severity Reaction Status Date / Time kiwi Allergy Severe Difficulty Verified 07/02/19 10:59 breathing, mouth swells Adhesive Tape Allergy Intermediate Rash And Verified 07/02/19 10:59 Itching gabapentin Allergy Intermediate Hives Verified 07/02/19 10:59 nickel Allergy Intermediate Rash And Verified 07/02/19 10:59 Itching atorvastatin [From Lipitor] Allergy Muscle Ache Verified 07/02/19 10:59 varenicline [From Chantix] Allergy Vomiting Verified 07/02/19 10:59 PMH/Surg Hx/FS Hx/Imm Hx Endocrine/Hematology History: Denies: Hx Diabetes Cardiovascular History: Denies: Hx Hypertension, Hx Pacemaker/ICD, Other Cardiovascular Problems/ Disorders Respiratory History: Reports: Hx Asthma - will bring inhalers, Hx Chronic Bronchitis, Hx Chronic Obstructive Pulmonary Disease (COPD), Hx Sleep Apnea, Other Respiratory Problems/Disorders - malignant neoplasm GI History: Reports: Hx Gastroesophageal Reflux Disease - HX OF, NO PROBLEMS NOW Denies: Other GI Disorders History: Denies: Hx Dialysis, Hx Renal Disease - Absent Right Kidney Musculoskeletal History: Reports: Hx Arthritis - THROUGHOUT BODY, Hx Back Problems - spondylolisthesis and spinal stenosis, Other Musculoskeletal History - FIBROMYALGIA Denies: Hx Tendonitis Sensory History: Reports: Hx Contacts or Glasses Denies: Hx Deafness, Hx Hearing Aid Opthamlomology History: Reports: Hx Contacts or Glasses Neurological History: Reports: Other Neuro Impairments/Disorders - PAIN CLINIC PT Psychiatric History: Denies: Hx Panic Disorder - Cancer History Cancer Type, Location and Year: LUNG - SMALL CELL Hx Chemotherapy: Yes Hx Radiation Therapy: Yes - Surgical History Surgery Procedure, Year, and Place: 2010 - LUMBAR LAM[place] [facility] [place]. PORT PLACEMENT 09/2017. 1976- C SECTION, [facility]. Oct 20, 2014 trial dorsal column stimulator, [facility] [place] - REMOVED 10/25/14;. 12/16/14 [facility] [id number], W/ [facility] CLICK -[id number]- STIMULATOR VERY CONDITIONAL - CAN ONLY HAVE MRI OF HEAD-NO OTHER BODY PART- SCAN IN NORMAL MODE, MAX SLEW RATE -200T/m/s ( [facility] [place] 1.5T MAX IS 120 T/m/s) ---specifics on check list with pt's paper work- scanned into EMR (TECH MUST SCAN IN NORMAL MODE USING OLD T/R HEAD COIL WITH HEAD IN ISOCENTER OF COIL. PT SHOULD HAVE REMOTE TO TURN OFF STIMULATOR) . 12/16/14 [employer] [id number], W/ ANCHOR CLICK -[id number]- Hx Anesthesia Reactions: No Infectious Disease History: No Infectious Disease History: Denies: Traveled Outside the [place] in Last 30 Days - Family History Known Family History: Negative: Cardiac Disease - Social History Alcohol Use: None Substance Use Type: Reports: None Substance Use Comment - Amount & Last Used: oxycontin and soma Hx Tobacco Use: Yes Smoking Status (MU): Former Smoker Type: Cigarettes Amount Used/How Often: 1/2-1 PPD X 48 YEARS Length of Time of Smoking/Using Tobacco: SMOKED FOR 45 YEARS Have You Smoked in the Last Year: No Review of Systems Positive: Fever Negative: Chest Pain Respiratory: Other - positive - wheezing, congestion Positive: Shortness Of Breath, Cough - hemoptysis Gastrointestinal: Other - positive - decreased appetite Negative: Vomiting, Nausea All Other Systems Reviewed And Are Negative: Yes Physical Exam - Summary Physical Exam Summary: Appearance: Well-appearing, Well-nourished, lying in bed comfortably Skin: Warm, dry, no obvious rash Eyes: sclera anicteric, no conjunctival pallor ENT: mucous membranes moist, pharynx appears normal Neck: Supple, nontender Respiratory: Bronchial breath sounds in both upper lung ac, crackles in right upper lung field Cardiovascular: Normal S1, S2. No murmurs. Normal distal pulses in tibial and radial bilaterally. Abdomen: Soft, nontender, normal active bowel sounds present Musculoskeletal: Normal, Strength/ROM Intact Neurological: A&Ox3, awake and alert, mentation is normal, speech is fluent and appropriate Psychiatric: affect is normal, does not appear anxious or depressed Triage Information Reviewed: Yes Vital Signs On Initial Exam: Initial Vitals Temp Pulse Resp BP Pulse Ox 98.8 F 90 18 123/81 94 08/09/19 18:56 08/09/19 18:56 08/09/19 18:56 08/09/19 18:56 08/09/19 18:56 Vital Signs Reviewed: Yes Diagnostics - Vital Signs Vital Signs Temp Pulse Resp BP Pulse Ox 08/09/19 18:56 98.8 F 90 18 123/81 94 - Laboratory Lab Results: Lab Results 08/09/19 08/09/19 08/09/19 Range/Units 20:06 20:06 20:06 WBC 8.8 (3.5-10.8) 10^3/uL RBC 3.60 L (3.70-4.87) 10^6 /uL Hgb 10.2 L (12.0-16.0) g/dL Hct 31 L (35-47) % MCV 86 (80-97) fL MCH 28 (27-31) pg MCHC 33 (31-36) g/dL RDW 17 H (10-15) % Plt Count 236 (150-450) 10^3/uL MPV 7.8 (7.4-10.4) fL Neut % (Auto) 81.2 % Lymph % (Auto) 9.5 % [place] % (Auto) 6.8 % Eos % (Auto) 2.0 % Baso % (Auto) 0.5 % Absolute Neuts (auto) 7.1 (1.5-7.7) 10^3/ul Absolute Lymphs (auto) 0.8 L (1.0-4.8) 10^3/ul Absolute Monos (auto) 0.6 (0-0.8) 10^3/ul Absolute Eos (auto) 0.2 (0-0.6) 10^3/ul Absolute Basos (auto) 0.0 (0-0.2) 10^3/ul Absolute Nucleated RBC 0.0 10^3/ul Nucleated RBC % 0.0 INR (Anticoag Therapy) 1.11 H (0.82-1.09) APTT 35.3 (26.0-38.0) seconds D-Dimer, Quantitative > 1050 H (Less Than 230) ng/mL Sodium 136 (135-145) mmol/L Potassium 4.2 (3.5-5.0) mmol/L Chloride 103 (101-111) mmol/L Carbon Dioxide 27 (22-32) mmol/L Anion Gap 6 (2-11) mmol/L BUN 17 (6-24) mg/dL Creatinine 0.86 (0.51-0.95) mg/dL Est GFR ( Amer) 78.3 (>60) Est GFR (Non-Af Amer) 64.7 (>60) BUN/Creatinine Ratio 19.8 (8-20) Glucose 112 H (70-100) mg/dL Lactic Acid (0.5-2.0) mmol/L Calcium 8.9 (8.6-10.3) mg/dL Total Bilirubin 0.30 (0.2-1.0) mg/dL AST 14 (13-39) U/L ALT 15 (7-52) U/L Alkaline Phosphatase 94 (34-104) U/L Troponin I 0.01 (<0.04) ng/mL B-Natriuretic Peptide (<=100) pg/mL Total Protein 7.1 (6.4-8.9) g/dL Albumin 3.6 (3.2-5.2) g/dL Globulin 3.5 (2-4) g/dL Albumin/Globulin Ratio 1.0 (1-3) 08/09/19 08/09/19 Range/Units 20:06 20:06 WBC (3.5-10.8) 10^3/uL RBC (3.70-4.87) 10^6 /uL Hgb (12.0-16.0) g/dL Hct (35-47) % MCV (80-97) fL MCH (27-31) pg MCHC (31-36) g/dL RDW (10-15) % Plt Count (150-450) 10^3/uL MPV (7.4-10.4) fL Neut % (Auto) % Lymph % (Auto) % [place] % (Auto) % Eos % (Auto) % Baso % (Auto) % Absolute Neuts (auto) (1.5-7.7) 10^3/ul Absolute Lymphs (auto) (1.0-4.8) 10^3/ul Absolute Monos (auto) (0-0.8) 10^3/ul Absolute Eos (auto) (0-0.6) 10^3/ul Absolute Basos (auto) (0-0.2) 10^3/ul Absolute Nucleated RBC 10^3/ul Nucleated RBC % INR (Anticoag Therapy) (0.82-1.09) APTT (26.0-38.0) seconds D-Dimer, Quantitative (Less Than 230) ng/mL Sodium (135-145) mmol/L Potassium (3.5-5.0) mmol/L Chloride (101-111) mmol/L Carbon Dioxide (22-32) mmol/L Anion Gap (2-11) mmol/L BUN (6-24) mg/dL Creatinine (0.51-0.95) mg/dL Est GFR ( Amer) (>60) Est GFR (Non-Af Amer) (>60) BUN/Creatinine Ratio (8-20) Glucose (70-100) mg/dL Lactic Acid 0.8 (0.5-2.0) mmol/L Calcium (8.6-10.3) mg/dL Total Bilirubin (0.2-1.0) mg/dL AST (13-39) U/L ALT (7-52) U/L Alkaline Phosphatase (34-104) U/L Troponin I (<0.04) ng/mL B-Natriuretic Peptide 162 H (<=100) pg/mL Total Protein (6.4-8.9) g/dL Albumin (3.2-5.2) g/dL Globulin (2-4) g/dL Albumin/Globulin Ratio (1-3) Result Diagrams: 08/09/19 20:06 08/09/19 20:06 Lab Statement: Any lab studies that have been ordered have been reviewed, and results considered in the medical decision making process. - Radiology CXR Radiology Interpretation Completed By: ED Physician Summary of Radiographic Findings: CXR showed increased opacity of right upper lung field, possible PNA, pending official report. - CT CTA CHEST/THORAX CT Interpretation Completed By: Radiologist Summary of CT Findings: IMPRESSION: 1. Bilateral pulmonary infiltrates, greatest in the right upper lobe which are. increased in the right upper lobe and decreased in the right middle and right. lower lobe lobe since 06/08/2018. Central consolidation in the left upper lobe is. increased. 2. Borderline mediastinal right hilar adenopathy which is similar to slightly. increased since the prior study. 3. Right Port-A-Cath to the right atrium which is similar. 4. Minimal right pleural effusion which is increased. 5. No gross central pulmonary embolism is identified. THIS REPORT WAS REVIEWED BY DR. MAYERS. Disposition - Course Course Of Treatment: Patient is a 74 y/o F w/ Hx of lung cancer that is currently in remission, COPD, who presents to [facility] with daughter with complaints of fever, hemoptysis and SOB for the past week. She states that she feels congested and endorses decreased appetite and wheezing as well. She denies chest pain, N/V. Highest temperature was 102 F. No recent sick contacts at home noted. PMHx of COPD, patient has inhalers but is not on steroids for this. Patient denies recent travel and denies Hx of TB. She is a former smoker. On physical exam, bronchial breath sounds in both upper lung ac, crackles in right upper lung field. Bloodwork was obtained. Abnormal values include RBC 3.6, Hgb 10.2, Hct 31, RDW 17, absolute lymphs 0.8, INR 1.11, D-Dimer > 1050, glucose 112, lactic acid 0.8, BNP 162. Trop was negative. CXR showed increased opacity of right upper lung field, possible PNA. During ED course, patient received Zithromax 500 mg in 250 mls @ 250 mls/hr IVPB ED and Ceftriaxone sodium 1 gm, 50 mls @ 100 mls/hr IVPB ONCE. Patient's case was discussed with Dr. Matta, Dr. Matta accepts for admission. CTA CHEST/THORAX IMPRESSION: 1. Bilateral pulmonary infiltrates, greatest in the right upper lobe which are. increased in the right upper lobe and decreased in the right middle and right. lower lobe lobe since 06/08/2018. Central consolidation in the left upper lobe is. increased. 2. Borderline mediastinal right hilar adenopathy which is similar to slightly. increased since the prior study. 3. Right Port-A-Cath to the right atrium which is similar. 4. Minimal right pleural effusion which is increased. 5. No gross central pulmonary embolism is identified. - Differential Dx - Cardiopulmonary Differential Diagnoses - Cardiopulmonary: Acute Dyspnea, Aspiration, Asthma, CHF , Hypoxia, Myocardial Infarction, Pleurisy, Pneumothorax, Pulmonary Edema, Pulmonary Embolism - Diagnoses Provider Diagnoses: PNA (pneumonia) - Physician Notifications Discussed Care Of Patient With: Mary Matta Time Discussed With Above Provider: 22:20 Instructed by Provider To: Other - Patient's case was discussed with Dr. Matta , Dr. Matta accepts for admission. Discharge ED - Sign-Out/Discharge Documenting (check all that apply): Patient Departure - admit Patient Received Moderate/Deep Sedation with Procedure: No - Discharge Plan Condition: Fair Disposition: ADMITTED TO [facility] - Billing Disposition and Condition Condition: FAIR Disposition: Admitted to [facility] - Attestation Statements Document Initiated by Hudson: Yes Documenting Tuyetibe: HUGO BAILEY Provider For Whom Hudson is Documenting (Include Credential): JAMES MAYERS MD Scribe Attestation: HUGO Marroquin, scribed for JAMES MAYERS MD on 08/10/19 at 0624. Scribe Documentation Reviewed: Yes Provider Attestation: The documentation as recorded by the HUGO jackson accurately reflects the service I personally performed and the decisions made by me, JAMES MAYERS MD Status of Scribe Document: Viewed
[2019-08-09] MEDS ORDERED: Iodixanol* (CONTRAST) 320 MG/ML 100 ML SDV IV ONE (22:03)
[2019-08-10] MEDS ORDERED: Benzonatate CAP* 100 MG PO PRN (00:31)
[2019-08-10] MEDS ORDERED: Albuterol HFA INHALER* 8 gm MDI INH PRN (00:31)
[2019-08-10] MEDS ORDERED: oxyCODONE/Acetamin 10/325(NF) TAB PO PRN (00:31)
[2019-08-10] MEDS ORDERED: Docusate CAP* 100 MG PO PRN (00:31)
[2019-08-10] MEDS ORDERED: oxyCODONE TAB* 5 MG TAB PO PRN (00:31)
[2019-08-10] MEDS ORDERED: Pantoprazole TAB * 40 MG TAB PO PRN (00:31)
[2019-08-10] MEDS ORDERED: Morphine INJ* 2 MG/ML 1 ML SYRINGE (TWO MG - NEW SYRINGE VERSION) IV PRN (00:34)
[2019-08-10] MEDS ORDERED: Acetaminophen TAB* 325 MG PO PRN (00:35)
[2019-08-10] MEDS ORDERED: Lactated Ringers 1000 ML Bag* 1,000 ML IV SCH (01:00)
[2019-08-10] MEDS: oxyCODONE SR TAB(*) 10 MG TAB.SR PO SCH ×3 (01:23→21:10)
[2019-08-10] MEDS: Carisoprodol TAB* 350 MG PO PRN ×3 (01:23→21:09)
[2019-08-10] MEDS: oxyCODONE/Acetamin 5/325 MG* TAB PO PRN ×2 (01:23→21:09)
[2019-08-10] MEDS: Pramipexole TAB* 0.125 MG PO SCH ×2 (02:09→21:09)
--- NOTE | 2019-08-10 05:05 | HP ---
CC: Dr. Jeronimo * HISTORY AND PHYSICAL: DATE OF ADMISSION: 08/10/19 TIME OF EVALUATION: 12:19 a.m. PRIMARY CARE PROVIDER: Dr. Jeronimo. CHIEF COMPLAINT: "I feel like crap." HISTORY OF PRESENT ILLNESS: Ms. Crocker is a 74-year-old female with a past medical history of COPD, lung CA, chronic back pain, who presents to the emergency room with complaints of malaise, cough, and shortness of breath. The patient states she was in her usual state of health until a week ago when she started to feel fatigue and also had fever. This progressed with chest congestion, anorexia, and productive cough, initially with whitish sputum and then progressed to blood-tinged sputum. She states that she had fever up to 102 and as the shortness of breath progressed, she decided to come to the emergency room today. She denies chest pain, palpitations, nausea, vomiting, diarrhea, or urinary complaints. PAST MEDICAL HISTORY: 1. COPD. 2. Lung CA. 3. Chronic back pain. PAST SURGICAL HISTORY: 1. Status post port insertion. 2. Status post resection. 3. Status post lumbar back surgery. 4. Status post spinal stimulator. MEDICATIONS: 1. Albuterol HFA 2 puffs inhaled q.6 hours p.r.n. shortness of breath. 2. Amitriptyline 10 mg p.o. at bedtime. 3. Benzonatate 100 mg p.o. t.i.d. as needed for cough. 4. Calcium carbonate 1500 mg p.o. b.i.d. 5. Carisoprodol 360 mg p.o. t.i.d. as needed for spasms. 6. Colace 100 mg p.o. b.i.d. as needed for constipation. 7. Advair 500/50 one puff inhaled b.i.d. 8. EMLA topical before accessing port. 9. Multivitamin 1 tablet p.o. daily. 10. Omeprazole 20 mg p.o. daily as needed for gastric reflux. 11. OxyContin 10 mg p.o. b.i.d. 12. Percocet 10/325 one tablet p.o. b.i.d. 13. MiraLAX 17 g p.o. daily. 14. Mirapex 0.25 mg p.o. at bedtime. 15. Lyrica 100 mg p.o. t.i.d. 16. PreserVision AREDS 1 tablet p.o. b.i.d. 17. Vitamin B complex 1 capsule p.o. at bedtime. ALLERGIES: KIWI, ADHESIVE TAPE, GABAPENTIN, CRIS, ATORVASTATIN, and CHANTIX. FAMILY HISTORY: Mother had a history of breast cancer and diabetes. Father had a history of OR. SOCIAL HISTORY: The patient is a former smoker, 1 pack per day for more than 30 years. She quit in 2010. No history of alcohol or drug use. Surrogate decision maker is her Justo Crocker [phone] and her daughter Aruna Weiner [phone]. REVIEW OF SYSTEMS: A 14-point review of systems was performed, and all the pertinent negatives and positive findings are in the HPI. PHYSICAL EXAMINATION GENERAL: The patient is a pleasant, elderly lady, lying in the ED stretcher, in no acute distress. VITAL SIGNS: Temperature 98.8, heart rate is 81, respiratory rate is 20, oxygen saturation 100% on 2 liters nasal cannula, blood pressure is 131/62. HEENT: Pupils are equal, moist mucous membranes. CHEST: Breath sounds bilaterally with bilateral crackles. CVS: Normal S1, S2. Regular rate and rhythm. ABDOMEN: Obese, soft, nontender. Bowel sounds are present. EXTREMITIES: Trace edema. NEUROLOGIC: She is alert and oriented x3. Able to move all 4 extremities. LABORATORY DATA AND IMAGING DATA: The patient had a CBC that showed WBC of 8.8 , hemoglobin of 10.2, hematocrit of 31, platelet count of 236 with 81% neutrophils. INR is 1.1. D-dimer was greater than 1050. Chemistry showed sodium of 136, potassium 4.2, chloride 103, bicarb 27, BUN 17, creatinine is 0.8 , glucose of 112, lactic acid 0.8, calcium is 8.9. LFTs are normal. Troponin 0.01. BNP is 162. CTA of the chest showed bilateral pulmonary infiltrates, greatest in the right upper lobe including right middle and right lower lobes with consolidation in the left upper lobe. There is no gross central pulmonary embolism identified. Unfortunately, I could not open her chest x-ray film in PACS. It was not working at that time. ASSESSMENT AND PLAN: Ms. Crocker is a 74-year-old lady with a past medical history of chronic obstructive pulmonary disease, lung carcinoma, chronic back pain that presents to the emergency's room with complaints of productive cough, malaise, found to have bilateral pneumonia. 1. Community-acquired pneumonia. The patient does not meet sepsis criteria at this time. Her CT chest shows bilateral infiltrates. She would be admitted to the medical floor. She is going to be starting empirically on ceftriaxone and Zithromax and symptomatic treatment. Blood cultures were sent in the emergency room. Sputum culture is ordered. I am going to check legionella and pneumococcal antigens. The patient presented with fever, cough, hemoptysis. 2. Chronic obstructive pulmonary disease. Does not appear to be an exacerbation at this time. I will continue the patient's bronchodilators as usual. I do not think she requires systemic steroids at this time. 3. Chronic back pain. She should continue her oxycodone, carisoprodol, Lyrica. 4. DVT prophylaxis: The patient has a score of 4 on the DVT Prophylaxis Assessment Guide, and she will receive subcutaneous heparin. If her hemoptysis becomes more pronounced, we can discontinue the heparin and start SCDs, but with her history of malignancy, she is at high risk for thromboembolic events. 5. Code status is full. TIME SPENT: Approximately 60 minutes was spent with the patient on interview, medical records review, physical examination to complete admission, more than half of the time was spent [id number] with the patient and coordination of care. [id number] #: [id number] MTDD
[2019-08-10] MEDS ORDERED: Heparin VIAL(*) 5000 UNITS/ML VIAL (FIVE THOUSAND) SUBCUT SCH (06:00)
[2019-08-10 06:31] LABS: Urine Appearance Clear; Urine Bilirubin Negative (Negative); Urine Blood Negative (Negative); Urine Color Yellow; Urine Glucose Negative (Negative); Urine Ketones Negative (Negative); Urine Nitrite Negative (Negative); Urine Protein Negative (Negative); Urine Urobilinogen Negative (Negative)
[2019-08-10] MEDS: Mometasone/Formoter 200/5 MDI INH SCH ×2 (07:19→19:39)
[2019-08-10] MEDS: Multivitamins/Minera Areds(NF) 1 CAP CAP PO SCH ×2 (07:56→21:15)
[2019-08-10] MEDS ORDERED: Calcium Carbonate CHEW TAB* 500 MG (TUMS) PO SCH (09:00)
[2019-08-10] MEDS ORDERED: Polyethylene Glycol 3350* 17 GM PACKET PO SCH (09:00)
[2019-08-10] MEDS: Pregabalin CAP(*) 100 MG PO SCH ×3 (09:31→21:10)
[2019-08-10] MEDS: Multivitamins/Minerals TAB PO SCH (09:31)
[2019-08-10] MEDS ORDERED: Albuterol/Ipratropium NEB.SOL* Albuterol 2.5 MG/Ipratropium 0.5 MG 3 ML INH ONE (10:52)
[2019-08-10] MEDS ORDERED: Polyethylene Glycol 3350* 17 GM PACKET PO PRN (11:03)
[2019-08-10] MEDS ORDERED: Calcium Carbonate CHEW TAB* 500 MG (TUMS) PO PRN (11:03)
--- NOTE | 2019-08-10 11:51 | PN ---
Subjective Date of Service: 08/10/19 Interval History: No fevers or leukocytosis. Admitted overnight for weakness, malaise, and found with consolidations on Chest CT. Started on abx overnight. Pt reports still feeling weak and tired. Reports home O2 at 2L when home. Is on 2L now and SaO2 is 96%. Objective Active Medications: Acetaminophen (Tylenol Tab*) 650 mg PO Q6H PRN PRN Reason: MILD PAIN or TEMP > 100.4 Albuterol (Ventolin Hfa Inhaler*) 2 puff INH Q6H PRN PRN Reason: WHEEZING Last Admin: 08/10/19 02:11 Dose: 2 puff Amitriptyline HCl (Elavil Tab*) 10 mg PO BEDTIME JENNIFER Azithromycin (Zithromax Tab*) 250 mg PO BEDTIME [facility] Stop: 08/13/19 21:01 Benzonatate (Tessalon Cap*) 100 mg PO TID PRN PRN Reason: COUGH Calcium Carbonate (Tums*) 1,500 mg PO BID PRN PRN Reason: INDIGESTION Carisoprodol (Soma Tab*) 350 mg PO TID PRN PRN Reason: SPASMS Last Admin: 08/10/19 01:23 Dose: 350 mg Docusate Sodium (Colace Cap*) 100 mg PO BID PRN PRN Reason: CONSTIPATION Enoxaparin Sodium (Lovenox(*)) 40 mg SUBCUT BEDTIME [facility] Ceftriaxone Sodium 1 gm/ (Sodium Chloride) 50 mls @ 100 mls/hr IVPB Q24H [facility] Mometasone Furoate/Formoterol Fumar (Dulera 200/5 Mdi*) 2 puff INH BID [facility] Last Admin: 08/10/19 07:19 Dose: 2 puff Morphine Sulfate (Morphine Inj (Syringe))*) 1 mg IV Q1H PRN PRN Reason: SEVERE PAIN Multivitamins/Minerals (Preservision Areds(Multivitamins/Mineral)(Nf)) 1 cap PO BID [facility] Last Admin: 08/10/19 07:56 Dose: Not Given Multivitamins/Minerals (Theragran/Minerals Tab*) 1 tab PO DAILY [facility] Last Admin: 08/10/19 09:31 Dose: 1 tab Oxycodone HCl (Oxycontin(*)) 10 mg PO BID [facility] Last Admin: 08/10/19 09:31 Dose: 10 mg Oxycodone HCl (Roxycodone Tab*) 5 mg PO Q4H PRN PRN Reason: PAIN MODERATE Oxycodone/Acetaminophen (Percocet 5/325 Tab*) 1 tab PO Q4H PRN PRN Reason: PAIN MODERATE Last Admin: 08/10/19 01:23 Dose: 1 tab Pantoprazole Sodium (Protonix Tab*) 40 mg PO DAILY PRN PRN Reason: Gastric Reflux Polyethylene Glycol/Electrolytes (Miralax*) 8.5 gm PO DAILY PRN PRN Reason: CONSTIPATION Pramipexole Dihydrochloride (Mirapex Tab*) 0.25 mg PO BEDTIME [facility] Last Admin: 08/10/19 02:09 Dose: 0.25 mg Pregabalin (Lyrica Cap(*)) 100 mg PO TID [facility] Last Admin: 08/10/19 09:31 Dose: 100 mg Vital Signs - 8 hr 08/10/19 08/10/19 08/10/19 04:05 04:06 07:00 Temperature 98.4 F Pulse Rate 77 Respiratory 16 16 24 Rate Blood Pressure 118/46 (mmHg) O2 Sat by Pulse 96 Oximetry 08/10/19 08/10/19 08/10/19 08:00 09:31 11:20 Temperature Pulse Rate 74 Respiratory 20 20 17 Rate Blood Pressure (mmHg) O2 Sat by Pulse 96 98 Oximetry Oxygen Devices in Use Now: Nasal Cannula Appearance: tired-appearing, NAD, nontoxic, pleasant, alert, interactive Ears/Nose/Mouth/Throat: Clear Oropharnyx, Mucous Membranes Moist Neck: NL Appearance and Movements; NL JVP Respiratory: - - scant exp wheeze, rhonchi in right upper lung field Cardiovascular: NL Sounds; No Murmurs; No JVD, RRR Abdominal: NL Sounds; No Tenderness; No Distention, No Hepatosplenomegaly Extremities: No Edema Skin: - - port through R chest wall Neurological: Alert and Oriented x 3 Result Diagrams: 08/09/19 20:06 08/09/19 20:06 Additional Lab and Data: Lab Results 08/09/19 08/09/19 08/09/19 Range/Units 20:06 20:06 20:06 WBC 8.8 (3.5-10.8) 10^3/uL RBC 3.60 L (3.70-4.87) 10^6 /uL Hgb 10.2 L (12.0-16.0) g/dL Hct 31 L (35-47) % MCV 86 (80-97) fL MCH 28 (27-31) pg MCHC 33 (31-36) g/dL RDW 17 H (10-15) % Plt Count 236 (150-450) 10^3/uL MPV 7.8 (7.4-10.4) fL Neut % (Auto) 81.2 % Lymph % (Auto) 9.5 % [place] % (Auto) 6.8 % Eos % (Auto) 2.0 % Baso % (Auto) 0.5 % Absolute Neuts (auto) 7.1 (1.5-7.7) 10^3/ul Absolute Lymphs (auto) 0.8 L (1.0-4.8) 10^3/ul Absolute Monos (auto) 0.6 (0-0.8) 10^3/ul Absolute Eos (auto) 0.2 (0-0.6) 10^3/ul Absolute Basos (auto) 0.0 (0-0.2) 10^3/ul Absolute Nucleated RBC 0.0 10^3/ul Nucleated RBC % 0.0 INR (Anticoag Therapy) 1.11 H (0.82-1.09) APTT 35.3 (26.0-38.0) seconds D-Dimer, Quantitative > 1050 H (Less Than 230) ng/mL Sodium 136 (135-145) mmol/L Potassium 4.2 (3.5-5.0) mmol/L Chloride 103 (101-111) mmol/L Carbon Dioxide 27 (22-32) mmol/L Anion Gap 6 (2-11) mmol/L BUN 17 (6-24) mg/dL Creatinine 0.86 (0.51-0.95) mg/dL Est GFR ( Amer) 78.3 (>60) Est GFR (Non-Af Amer) 64.7 (>60) BUN/Creatinine Ratio 19.8 (8-20) Glucose 112 H (70-100) mg/dL Lactic Acid (0.5-2.0) mmol/L Calcium 8.9 (8.6-10.3) mg/dL Total Bilirubin 0.30 (0.2-1.0) mg/dL AST 14 (13-39) U/L ALT 15 (7-52) U/L Alkaline Phosphatase 94 (34-104) U/L Troponin I 0.01 (<0.04) ng/mL B-Natriuretic Peptide (<=100) pg/mL Total Protein 7.1 (6.4-8.9) g/dL Albumin 3.6 (3.2-5.2) g/dL Globulin 3.5 (2-4) g/dL Albumin/Globulin Ratio 1.0 (1-3) 08/09/19 08/09/19 Range/Units 20:06 20:06 WBC (3.5-10.8) 10^3/uL RBC (3.70-4.87) 10^6 /uL Hgb (12.0-16.0) g/dL Hct (35-47) % MCV (80-97) fL MCH (27-31) pg MCHC (31-36) g/dL RDW (10-15) % Plt Count (150-450) 10^3/uL MPV (7.4-10.4) fL Neut % (Auto) % Lymph % (Auto) % [place] % (Auto) % Eos % (Auto) % Baso % (Auto) % Absolute Neuts (auto) (1.5-7.7) 10^3/ul Absolute Lymphs (auto) (1.0-4.8) 10^3/ul Absolute Monos (auto) (0-0.8) 10^3/ul Absolute Eos (auto) (0-0.6) 10^3/ul Absolute Basos (auto) (0-0.2) 10^3/ul Absolute Nucleated RBC 10^3/ul Nucleated RBC % INR (Anticoag Therapy) (0.82-1.09) APTT (26.0-38.0) seconds D-Dimer, Quantitative (Less Than 230) ng/mL Sodium (135-145) mmol/L Potassium (3.5-5.0) mmol/L Chloride (101-111) mmol/L Carbon Dioxide (22-32) mmol/L Anion Gap (2-11) mmol/L BUN (6-24) mg/dL Creatinine (0.51-0.95) mg/dL Est GFR ( Amer) (>60) Est GFR (Non-Af Amer) (>60) BUN/Creatinine Ratio (8-20) Glucose (70-100) mg/dL Lactic Acid 0.8 (0.5-2.0) mmol/L Calcium (8.6-10.3) mg/dL Total Bilirubin (0.2-1.0) mg/dL AST (13-39) U/L ALT (7-52) U/L Alkaline Phosphatase (34-104) U/L Troponin I (<0.04) ng/mL B-Natriuretic Peptide 162 H (<=100) pg/mL Total Protein (6.4-8.9) g/dL Albumin (3.2-5.2) g/dL Globulin (2-4) g/dL Albumin/Globulin Ratio (1-3) Microbiology and Other Data: Microbiology 08/10/19 06:07 Legionella Urinary Antigen - Final Urine Negative Legionella Antigen Streptococcus pneumoniae Ag Screen - Final Negative S. pneumo Antigen Assess/Plan/Problems-Billing 74W with COPD on home O2, lung Ca s/p chemo/radiation, chronic LBP, presents with malaise and cough, found with consolidation on Chest CTA. - Patient Problems (1) Pneumonia Comment: seen on CT, no fever or leukocytosis. Urine antigens negative. - cont CTX/azithro (08/09 - ) - f/u BCx, pending sputum (2) COPD exacerbation Comment: Doesn't seem to be in active exacerbation. - cont home inhalers, albuterol prn - SaO2 goal 88-92%; pt is on O2 at home (3) Normocytic anemia Comment: Stable. - order w/u (4) DVT prophylaxis Comment: lovenox
[2019-08-10 13:57] LABS: Hematocrit 29 % (35-47); Hemoglobin 9.5 g/dL (12.0-16.0); Mean Corpuscular HGB Conc 33 g/dL (31-36); Mean Corpuscular Hemoglobin 28 pg (27-31); Mean Corpuscular Volume 85 fL (80-97); Mean Platelet Volume 7.9 fL (7.4-10.4); Platelet Count 215 10^3/uL (150-450); Red Blood Count 3.39 10^6 /uL (3.70-4.87); Red Cell Distribution Width 17 % (10-15); White Blood Count 6.7 10^3/uL (3.5-10.8)
[2019-08-10 14:17] LABS: Anion Gap 6 mmol/L (2-11); BUN/Creatinine Ratio 17.1 (8-20); Blood Urea Nitrogen 12 mg/dL (6-24); C Reactive Protein 180.82 mg/L (<8.01); CO2 Carbon Dioxide 27 mmol/L (22-32); Calcium 8.5 mg/dL (8.6-10.3); Chloride 103 mmol/L (101-111); EGFR African American 99.2 (>60); Glucose 212 mg/dL (70-100); Magnesium 1.7 mg/dL (1.9-2.7); Potassium 3.8 mmol/L (3.5-5.0); Sodium 136 mmol/L (135-145)
[2019-08-10 14:42] LABS: Total Iron Binding Capacity 197 mcg/dL (250-450); Transferrin 141 mg/dL (203-362)
[2019-08-10 14:45] LABS: % Iron Saturation 10 % (15-55); Iron < 20 ug/dL (50-212)
[2019-08-10 14:53] LABS: Ferritin 121.1 ng/mL (11-307)
[2019-08-10] MEDS ORDERED: Magnesium Sulfate 2 GM IV* 2 GM/50 ML BAG IVPB ONE (16:18)
[2019-08-10] MEDS ORDERED: Azithromycin TAB* 250 MG PO SCH (21:00)
[2019-08-10] MEDS ORDERED: Enoxaparin(*) 40 MG/0.4 ML SYR SUBCUT SCH (21:00)
[2019-08-10] MEDS ORDERED: Amitriptyline TAB* 10 MG PO SCH (21:00)
[2019-08-10] MEDS ORDERED: cefTRIAXone(*) 1 GM in NS 0.9% 50 ML* 50 ML IVPB SCH (21:00)
[2019-08-10] MEDS ORDERED: Azithromycin 500 mg/250 ml NS 500 MG/250 ML BAG IVPB SCH (21:30)
[2019-08-11 07:31] LABS: Hematocrit 28 % (35-47); Hemoglobin 9.5 g/dL (12.0-16.0); Mean Corpuscular HGB Conc 34 g/dL (31-36); Mean Corpuscular Hemoglobin 29 pg (27-31); Mean Corpuscular Volume 85 fL (80-97); Mean Platelet Volume 7.6 fL (7.4-10.4); Platelet Count 214 10^3/uL (150-450); Red Blood Count 3.33 10^6 /uL (3.70-4.87); Red Cell Distribution Width 17 % (10-15); White Blood Count 5.2 10^3/uL (3.5-10.8)
[2019-08-11] MEDS: Mometasone/Formoter 200/5 MDI INH SCH (07:37)
[2019-08-11 07:47] LABS: BUN/Creatinine Ratio 16.4 (8-20); Calcium 9.1 mg/dL (8.6-10.3); EGFR African American 116.3 (>60); EGFR Non-African American 96.1 (>60)
[2019-08-11] MEDS: oxyCODONE SR TAB(*) 10 MG TAB.SR PO SCH (08:18)
[2019-08-11] MEDS: Pregabalin CAP(*) 100 MG PO SCH (08:18)
[2019-08-11] MEDS: Multivitamins/Minerals TAB PO SCH (08:18)
[2019-08-11] MEDS: Multivitamins/Minera Areds(NF) 1 CAP CAP PO SCH (08:26)
[2019-08-11 08:37] VITALS: BP 141/65
[2019-08-11] MEDS ORDERED: Influenza VAC *QUAD* 2019-20* 0.5 ML SYRINGE IM ONE ×2 (09:00→12:00)
[2019-08-11] MEDS ORDERED: Ferrous Sulfate TAB* 325 MG PO SCH (09:00)
--- NOTE | 2019-08-12 00:34 | DS ---
CC: Dr. Jeronimo * DISCHARGE SUMMARY: DATE OF ADMISSION: 08/09/19 DATE OF DISCHARGE: 08/11/19 PROVIDER: Jhonny Gallo NP ATTENDING PHYSICIAN: Dr. Sr.* (DICTATED BY JHONNY GALLO NP) PRIMARY CARE PHYSICIAN: Dr. Jeronimo. PRIMARY DIAGNOSES: 1. Community-acquired pneumonia 2. Chronic obstructive pulmonary disease. SECONDARY DIAGNOSIS: Chronic back pain. PROCEDURES: None. STUDIES: On 08/09/19, the patient had an x-ray, which showed persistent right upper lobe airspace disease superimposed on chronic interstitial lung disease with treatment related changes of the left perihilar lung. On the same day, 07/20, the patient also had a CT scan, the findings showed bilateral pulmonary infiltrates, greatest in the right upper lobe, which are increased in the right upper lobe and decreased in the right middle and right lower lobes since 08/09/18. Central consolidation of the left lobe is increased, borderline mediastinal right hilar adenopathy which is similar to slightly increase in prior study. Right Port-A-Cath to the right atrium. Minimal right pleural effusion, which is increased. No gross central pulmonary embolism identified. PERTINENT LAB DATA: Iron less than 20, TIBC 197, percent saturation 10, transferrin 141, ferritin 121.1, RBC 3.33, hemoglobin 9.5, hematocrit 18. HISTORY OF PRESENT ILLNESS AND HOSPITAL COURSE: This is a 74-year-old female with a past medical history significant for lung cancer and COPD, who presented to the emergency room, again on 08/09/19, with shortness of breath, fever, and hemoptysis. CT and x-ray performed. The patient determined to have community- acquired pneumonia, received Zithromax IV and ceftriaxone IV in the emergency room, was then transferred to the floor with continued inpatient IV antibiotic management with IV hydration. The patient determined to did not have any COPD exacerbation. Continued on home oxygen 2 L and nebulizers p.r.n. The patient also found to be iron deficient with iron less than 20. TIBC 197, percent saturation 10, transferrin 141, ferritin 121.1. The patient placed on ferritin sulfate. REVIEW OF SYSTEMS: An 11-point system review performed with no pertinent positives. Pertinent negatives include no chest pain, shortness of breath or palpitations. IMPRESSION: Again, this is a 74-year-old female with a past medical history significant for lung cancer and chronic obstructive pulmonary disease, who came to the emergency room on 08/09/19 for community-acquired pneumonia. PHYSICAL EXAMINATION: General: No acute distress noted. The patient is awake and conversive. Eyes: Conjunctivae pink and moist. PERRLA. Extraocular muscles intact. HEENT: Normocephalic. Oropharynx is clear. Oral mucosa is moist. Neck: No lymphadenopathy noted. Respiratory: Noted inspiratory and expiratory crackles throughout the right lung. Left lung clear, diminished in the bases, on 2 L of oxygen. No use of accessory muscles. Cardiovascular: S1 , S2. Heart rate regular. No murmurs, gallops or rubs appreciated. Gastrointestinal: Abdomen is soft, nontender with positive bowel sounds x4. Musculoskeletal: Able to move all extremities. Positive pedal pulses. Cap refill less then 3 seconds. Strength 5/5 in bilateral upper and lower extremities. Skin: No open areas or rashes appreciated. Neurologic: No focal deficits appreciated. Psychiatric: The patient is bright and responsive , oriented to time, place, and person. DISCHARGE PLAN: As follows: 1. Community-acquired pneumonia: Continue Zithromax and cefdinir on outpatient basis. Follow up with PCP in 1 week. Oral hydration, benzonatate. 2. Iron deficiency superimposed upon anemia of chronic disease: Continue ferrous sulfate. 3. COPD: Continue home O2, Advair and albuterol. 4. Chronic pain: Continue Soma, Lyrica, amitriptyline, pramipexole. 5. GERD: Continue omeprazole. MEDICATIONS: New meds: 1. Azithromycin 250 mg p.o. q.h.s. x6 days. 2. Cefdinir 300 mg p.o. b.i.d. for the next 6 days. 3. Ferrous sulfate 325 mg p.o. daily. Continue home meds and home meds are: 1. Polyethylene glycol 8 g p.o. daily. 2. Calcium carbonate 500 mg p.o. b.i.d. p.r.n. 3. Percocet 10/325 one tab p.o. b.i.d. 4. Oxycodone extended release 10 mg p.o. b.i.d. 5. Vitamin B complex 1 cap p.o. at bedtime. 6. PreserVision AREDS Softgel 1 cap p.o. b.i.d. 7. Lyrica 100 mg p.o. b.i.d. 8. Pramipexole 0.25 mg p.o. at bedtime. 9. Omeprazole 20 mg p.o. daily p.r.n. 10. Multivitamin 1 tab p.o. daily. 11. Fluticasone and salmeterol 500/50 Diskus 1 puff inhalation b.i.d. 12. Colace 100 mg p.o. b.i.d. p.r.n. 13. Carisoprodol or Soma 350 mg p.o. t.i.d. p.r.n. 14. Benzonatate 100 mg p.o. t.i.d. p.r.n. 15. Amitriptyline 10 mg p.o. at bedtime. 16. Albuterol 2 puffs inhalation q.6 hours p.r.n. CONDITION UPON DISCHARGE: Stable. DISPOSITION: To home. TIME SPENT: 45 minutes. JHONNY GALLO, ATTENDANT [facility] [id number]/[facility] #: [id number] [facility] CENTERLuciana
== END 2019-08-11 12:10 | disposition home or self-care (01) | DRG 194 ==
LOC: ED 18:55 → MED 08-10 00:19
PROVIDERS: ADMIT Internal Medicine; ATTEND Internal Medicine
DX: J18.9 Pneumonia, unspecified organism (principal); J44.0 Chronic obstructive pulmonary disease with (acute) lower respiratory infection; J90 Pleural effusion, not elsewhere classified; R04.2 Hemoptysis; G89.29 Other chronic pain; M54.9 Dorsalgia, unspecified; D63.1 Anemia in chronic kidney disease; D50.9 Iron deficiency anemia, unspecified; G47.30 Sleep apnea, unspecified; M19.90 Unspecified osteoarthritis, unspecified site; K21.9 Gastro-esophageal reflux disease without esophagitis; Z88.8 Allergy status to other drugs, medicaments and biological substances; Z91.018 Allergy to other foods; Z91.048 Other nonmedicinal substance allergy status; Z85.118 Personal history of other malignant neoplasm of bronchus and lung; Z83.3 Family history of diabetes mellitus; Z80.3 Family history of malignant neoplasm of breast; Z82.49 Family history of ischemic heart disease and other diseases of the circulatory system; Z87.891 Personal history of nicotine dependence; Z99.81 Dependence on supplemental oxygen
CPT/HCPCS: 36415; 71046; 71275; 80048; 80053; 81003; 82728; 83540; 83550; 83605; 83735; 83880; 84484; 85025; 85027; 85379; 85610; 85730; 86140; 87040; 87070; 87077; 87186; 87205; 87899; 90686; 94640; 99284; A9270-GY; J0456; J0696; J1642; J1644; J1650; J3475; Q9967

== ENCOUNTER 2019-11-09 14:57 | Emergency (ER) | payer MEDICARE, BC, OTHER ==
--- NOTE | 2019-11-09 15:15 | ED ---
Shortness of Breath - HPI Summary HPI Summary: Patient is a 74-year-old female who presents with 2 days of worsening SOB. Also states she has had a fever (highest 102), chills, and fatigue. Cough with blood- tinged sputum. Patient states she has been trying nebulizer treatments at home with no relief. Denies chest pain. Denies leg edema. Denies abdominal pain, nausea, vomiting. PMH significant for lung cancer (remission), COPD. Normally wears 2L oxygen at home. She denies any increase in weight. States this feels like pneumonia she's had past. She had her flu shot. No one else is sick. Cough is productive cough. - History of Current Complaint Chief Complaint: EDShortnessOfBreath Time Seen by Provider: 11/09/19 15:08 Hx Obtained From: Patient - Allergy/Home Medications Allergies/Adverse Reactions: Allergies Allergy/AdvReac Type Severity Reaction Status Date / Time kiwi Allergy Severe Difficulty Verified 11/09/19 15:04 breathing, mouth swells Adhesive Tape Allergy Intermediate Rash And Verified 11/09/19 15:04 Itching gabapentin Allergy Intermediate Hives Verified 11/09/19 15:04 nickel Allergy Intermediate Rash And Verified 11/09/19 15:04 Itching atorvastatin [From Lipitor] Allergy Muscle Ache Verified 11/09/19 15:04 varenicline [From Chantix] Allergy Vomiting Verified 11/09/19 15:04 Home Medications: Home Medications Albuterol 2.5MG/3ML (0.083%)* [Ventolin 2.5 MG/3 ML NEB.TOBY*] 2.5 mg INH QID PRN 11/09/19 [History Confirmed 11/09/19] Cyanocobalamin TAB* [Vitamin B12 TAB*] 500 mcg PO DAILY 11/09/19 [History Confirmed 11/09/19] Ibuprofen TAB* [Advil TAB*] 200 mg PO Q6H PRN 11/09/19 [History Confirmed ] Leg Cramp Pm 1 tab PO BEDTIME 11/09/19 [History Confirmed 11/09/19] Melatonin (NF) 1 tab PO BEDTIME PRN 11/09/19 [History Confirmed 11/09/19] Miracle Mouth Wash 1 oral.liq SWISH SPIT TID 11/09/19 [History Confirmed ] Tiotropium Bosque [Spiriva Respimat] 2 puff INH DAILY 11/09/19 [History Confirmed 11/09/19] Vit C/E/Zn/Coppr/Lutein/Zeaxan [Preservision Areds 2 Softgel] 1 each PO BID 08/20 [History Confirmed 11/09/19] PMH/Surg Hx/FS Hx/Imm Hx Endocrine/Hematology History: Denies: Hx Diabetes Cardiovascular History: Denies: Hx Hypertension, Hx Pacemaker/ICD, Other Cardiovascular Problems/ Disorders Respiratory History: Reports: Hx Asthma - will bring inhalers, Hx Chronic Bronchitis, Hx Chronic Obstructive Pulmonary Disease (COPD), Hx Sleep Apnea, Other Respiratory Problems/Disorders - malignant neoplasm GI History: Reports: Hx Gastroesophageal Reflux Disease - HX OF, NO PROBLEMS NOW Denies: Other GI Disorders History: Denies: Hx Dialysis, Hx Renal Disease - Absent Right Kidney Musculoskeletal History: Reports: Hx Arthritis - THROUGHOUT BODY, Hx Back Problems - spondylolisthesis and spinal stenosis, Other Musculoskeletal History - FIBROMYALGIA Denies: Hx Tendonitis Sensory History: Reports: Hx Contacts or Glasses Denies: Hx Deafness, Hx Hearing Aid Opthamlomology History: Reports: Hx Contacts or Glasses Neurological History: Reports: Other Neuro Impairments/Disorders - PAIN CLINIC PT Psychiatric History: Denies: Hx Panic Disorder - Cancer History Cancer Type, Location and Year: LUNG - SMALL CELL Hx Chemotherapy: Yes Hx Radiation Therapy: Yes - Surgical History Surgery Procedure, Year, and Place: 2010 - LUMBAR [place]AMINECTOMY, [facility] [place] [facility] [place]. PORT PLACEMENT 09/2017. 1975- C SECTION, [facility]. Oct 20, 2014 trial dorsal column stimulator, [facility] [place] [facility] [place] REMOVED 10/25/14;. 12/16/14 [facility] SPECTRA [id number], W/ ANCHOR CLICK -[id number] STIMULATOR VERY CONDITIONAL - CAN ONLY HAVE MRI OF HEAD-NO OTHER BODY PART- SCAN IN NORMAL MODE, MAX SLEW RATE -200T/m/s ( [facility] [place] [facility] [place] 1.5T MAX IS 120 T/m/s) ---specifics on check list with pt's paper work- scanned into EMR (TECH MUST SCAN IN NORMAL MODE USING OLD T/R HEAD COIL WITH HEAD IN ISOCENTER OF COIL. PT SHOULD HAVE REMOTE TO TURN OFF STIMULATOR) . 12/16/14 [facility] PRECISION SPECTRA [id number], W/ ANCHOR CLICK -[id number]- Hx Anesthesia Reactions: No Infectious Disease History: No Infectious Disease History: Denies: Traveled Outside the [place] in Last 30 Days - Family History Known Family History: Negative: Cardiac Disease - Social History Alcohol Use: None Substance Use Type: Reports: None Substance Use Comment - Amount & Last Used: oxycontin and soma Hx Tobacco Use: Yes Smoking Status (MU): Former Smoker Type: Cigarettes Amount Used/How Often: 1/2-1 PPD X 48 YEARS Length of Time of Smoking/Using Tobacco: SMOKED FOR 45 YEARS Have You Smoked in the Last Year: No Review of Systems Positive: Fever, Chills, Fatigue. Negative: Skin Diaphoresis Eyes: Negative ENT: Negative Negative: Sore Throat, Nasal Discharge Cardiovascular: Negative Negative: Palpitations, Chest Pain Positive: Shortness Of Breath, Cough - Cough with blood tinged sputum Gastrointestinal: Negative Negative: Abdominal Pain, Vomiting, Nausea Genitourinary: Negative Positive: no symptoms reported Musculoskeletal: Negative Negative: Myalgia Skin: Negative Positive: Weakness Psychological: Normal All Other Systems Reviewed And Are Negative: Yes Physical Exam Triage Information Reviewed: Yes Vital Signs On Initial Exam: Initial Vitals Temp Pulse Resp BP Pulse Ox 99.3 F 105 22 107/53 90 11/09/19 14:58 11/09/19 14:58 11/09/19 14:58 11/09/19 14:58 11/09/19 14:58 Vital Signs Reviewed: Yes Appearance: Positive: Well-Nourished, Ill-Appearing - Patient in mild-moderate respiratory distress. Skin: Positive: Warm, Skin Color Reflects Adequate Perfusion, Dry Head/Face: Positive: Normal Head/Face Inspection Eyes: Positive: Normal, EOMI, CARRILLO, Conjunctiva Clear ENT: Positive: Normal ENT inspection, Pharynx normal Neck: Positive: Supple, Nontender, No Lymphadenopathy Respiratory/Lung Sounds: Positive: Breath Sounds Present, Rales - Crackles to right lower lung base, Wheezes - expiratory. Negative: Rhonchi, Tracheal Deviation Cardiovascular: Positive: Tachycardia, S1, S2. Negative: Murmur, Rub Abdomen Description: Positive: Nontender, Soft. Negative: Distended Bowel Sounds: Positive: Present Musculoskeletal: Positive: Normal Neurological: Positive: Normal, Sensory/Motor Intact, Alert, Oriented to Person Place, Time, CN Intact II-III Psychiatric: Positive: Normal - [place] Coma Scale Best Eye Response: 4 - Spontaneous Best Motor Response: 6 - Obeys Commands Best Verbal Response: 5 - Oriented Coma Scale Total: 15 Procedures - Sedation Patient Received Moderate/Deep Sedation with Procedure: No Diagnostics - Vital Signs Vital Signs Temp Pulse Resp BP Pulse Ox 11/09/19 14:58 99.3 F 105 22 107/53 90 - Laboratory Result Diagrams: 11/09/19 15:48 11/09/19 15:48 Lab Statement: Any lab studies that have been ordered have been reviewed, and results considered in the medical decision making process. - Radiology chest Radiology Interpretation Completed By: Radiologist Summary of Radiographic Findings: NCREASED INTERSTITIAL LUNG MARKINGS ON THE RIGHT COULD BE SEEN IN THE SETTING OF INTERSTITIAL LUNG DISEASE CHRONICALLY VERSUS PULMONARY EDEMA MORE ACUTELY. OVERALL THE DEGREE OF AERATION IS IMPROVED RELATIVE TO THE 2018 CHEST X-RAY. - CT cta CT Interpretation Completed By: Radiologist Summary of CT Findings: IMPRESSION: 1. No CT of evidence of pulmonary embolism. 2. Parenchymal density and appearance of interstitial lung disease is similar to the prior CT of the chest dated August 09, 2019. 3. Additional chronic, degenerative and iatrogenic findings described in the body the report. - EKG No standard instances Cardiac Rate: NL EKG Rhythm: Sinus Rhythm EKG Comparison: No Significant Change Summary of EKG Findings: sinus rhythm, rbbb Re-Evaluation - Re-Evaluation First Eval Re-Evaluation Time: 17:00 Change: Improved Comment: feeling better after breathing treatment Second Eval Re-Evaluation Time: 18:02 Comment: continues to wheeze Third Eval Re-Evaluation Time: 19:41 Change: Improved Comment: feeling better Fourth Eval Re-Evaluation Time: 20:25 Comment: feels ready to go home, is at 94 on her normal 2 liters Course/Dx - Course Course Of Treatment: 74 year old female presents with increasing shortness breath for the past 2 days. Has been having a cough with sputum with smears of blood. had fever at home. States it feels similar to the pneumonia had in past. She is in remission for lung cancer. Denies any chest pain. On exam some wheezing noted. Is requiring 4 L oxygen which is not her baseline (2liters ). Is little hypotensive so gave fluids. wbc 11.4. troponin .04. bnp normal. d- dimer elevated. crp elevated. chest xray shows intersitiual fluid. CTA shows no acute findings. gave breathing treatment and steriods with some improvement. troponin repeat .03. gave mg and feeling better. patient is feeling less shortness of breath. feels ready to be discharge. will place on steriod and antibiotics. told if develop worsening sob to retun. patient understand and agrees with plan. - Diagnoses Differential Diagnosis/HQI/PQRI: Positive: COPD Exacerbation, Pneumonia, Pulmonary Embolism Provider Diagnoses: COPD exacerbation, Bronchitis Discharge ED - Sign-Out/Discharge Documenting (check all that apply): Patient Departure - Discharge Plan Condition: Good Disposition: HOME Prescriptions: Azithromycin TAB* [Zithromax TAB (Z-JW) 250 mg #6 tabs] 250 mg PO DAILY #4 tab predniSONE TAB* [Deltasone TAB*] 50 mg PO DAILY #4 tab Patient Education Materials: Acute Bronchitis (ED) Referrals: Emmy Jeronimo MD [Primary Care Provider] - Additional Instructions: Use nebulizer every 4 hours for cough and wheezing Take steroid once a day for 4 more days starting tomorrow Take antibiotic once daily starting tomorrow for 4 days Take Tylenol for pain every 6 hours Follow up with primary within 5 days Return to ED if develop any new or worsening symptoms - Billing Disposition and Condition Condition: GOOD Disposition: Home
[2019-11-09] MEDS ORDERED: NS 0.9% 1000 ML** 1,000 ML IV.FLUID IV ONE (15:16)
[2019-11-09] MEDS ORDERED: Albuterol/Ipratropium NEB.SOL* Albuterol 2.5 MG/Ipratropium 0.5 MG 3 ML INH ONE ×3 (15:27→18:54)
[2019-11-09 16:18] LABS: ALT 14 U/L (7-52); AST 16 U/L (13-39); Albumin 3.4 g/dL (3.2-5.2); Albumin/Globulin Ratio 0.9 (1-3); Alkaline Phosphatase 89 U/L (34-104); Anion Gap 7 mmol/L (2-11); BUN/Creatinine Ratio 20.7 (8-20); Blood Urea Nitrogen 18 mg/dL (6-24); CO2 Carbon Dioxide 27 mmol/L (22-32); Calcium 9.6 mg/dL (8.6-10.3); Chloride 100 mmol/L (101-111); EGFR African American 77.2 (>60); EGFR Non-African American 63.8 (>60); Globulin 3.6 g/dL (2-4); Glucose 106 mg/dL (70-100); Potassium 4.2 mmol/L (3.5-5.0); Sodium 134 mmol/L (135-145)
[2019-11-09 16:20] LABS: ABS Eosinophils 0.1 10^3/ul (0-0.6); ABS Monocytes 0.9 10^3/ul (0-0.8); ABS Neutrophils 9.5 10^3/ul (1.5-7.7); Eosinophil % 0.5 %; Hematocrit 31 % (35-47); Hemoglobin 10.1 g/dL (12.0-16.0); Lymphocyte % 8.6 %; Mean Corpuscular HGB Conc 33 g/dL (31-36); Mean Corpuscular Hemoglobin 29 pg (27-31); Mean Corpuscular Volume 87 fL (80-97); Mean Platelet Volume 8.1 fL (7.4-10.4); Platelet Count 203 10^3/uL (150-450); Red Blood Count 3.49 10^6 /uL (3.70-4.87); Red Cell Distribution Width 16 % (10-15); Troponin I 0.04 ng/mL (<0.03); White Blood Count 11.4 10^3/uL (3.5-10.8)
[2019-11-09] MEDS ORDERED: methylPREDNISolone 125 MG* 2 ML VIAL IV ONE (16:25)
[2019-11-09 16:32] LABS: INR 1.26 (0.82-1.09)
[2019-11-09] MEDS ORDERED: cefTRIAXone(*) 1 GM in NS 0.9% 50 ML* 50 ML IVPB ONE (16:32)
[2019-11-09] MEDS ORDERED: Azithromycin 500 mg/250 ml NS 500 MG/250 ML BAG IVPB ONE (16:33)
[2019-11-09] MEDS ORDERED: Iohexol 350* (CONTRAST) 500 ML MDV IV ONE (16:58)
[2019-11-09] MEDS ORDERED: Iodixanol* (CONTRAST) 320 MG/ML 100 ML SDV IV ONE (16:59)
[2019-11-09] MEDS ORDERED: Magnesium Sulfate 2 GM IV* 2 GM/50 ML BAG IVPB ONE (18:02)
[2019-11-09 18:23] LABS: Magnesium 1.8 mg/dL (1.9-2.7)
[2019-11-09 20:04] LABS: Troponin I 0.03 ng/mL (<0.03)
[2019-11-09 21:20] VITALS: BP 129/79
== END 2019-11-09 21:15 | disposition home or self-care (01) ==
LOC: ED 14:57
DX: J44.1 Chronic obstructive pulmonary disease with (acute) exacerbation (principal); J40 Bronchitis, not specified as acute or chronic; K21.9 Gastro-esophageal reflux disease without esophagitis; Z87.891 Personal history of nicotine dependence; Z85.118 Personal history of other malignant neoplasm of bronchus and lung; Z99.81 Dependence on supplemental oxygen; Z79.899 Other long term (current) drug therapy; Z88.8 Allergy status to other drugs, medicaments and biological substances
CPT/HCPCS: 36415; 71046; 71275; 80053; 83605; 83735; 83880; 84484; 85025; 85379; 85610; 85730; 86140; 87040; 93005; 96361; 96365; 96366; 96367; 96375; 99283; A9270-GY; J0456; J0696; J2930; J3475; Q9967

== ENCOUNTER 2019-12-12 08:17 | Inpatient (IN) | payer MEDICARE, BC, OTHER ==
[2019-12-12] MEDS ORDERED: Albuterol/Ipratropium NEB.SOL* Albuterol 2.5 MG/Ipratropium 0.5 MG 3 ML INH ONE (08:31)
[2019-12-12] MEDS ORDERED: methylPREDNISolone 125 MG* 2 ML VIAL IV ONE (08:31)
--- NOTE | 2019-12-12 08:35 | ED ---
Shortness of Breath - HPI Summary HPI Summary: This pt is a 74 Y/O F presenting to [facility] accompanied by her daughter with a CC of SOB that began 12/09/2019 and has been worsening since 12/10/2019. She states that she has a productive cough of pink sputum. She is usually on 2 L of O2 at home but has had to up it to 4L starting 12/10/2019 due to her SOB. She states that she has had a fever of a highest temperature of 100.8 F. She states that she has no aggravating factors. She states that her home nebulizer has helped to alleviate her symptoms. She denies any N/V, chills, diaphoresis, CP, and headaches. She states that she has a PMHx of COPD. - History of Current Complaint Chief Complaint: EDUpperRespComplaint Time Seen by Provider: 12/12/19 08:31 Hx Obtained From: Patient Onset/Duration: Sudden Onset, Lasting Days - 3, Still Present, Worse Since - 12/10 Timing: Constant Current Severity: Moderate Dyspnea At: Rest Aggravating Factors: Nothing Alleviating Factors: Bronchodilators Associated Signs & Symptoms: Negative - N/V, chills, diaphoresis, CP, and headaches, Cough (Productive), Cough (Bloody Sputum), Fever - 100.8 F - Allergy/Home Medications Allergies/Adverse Reactions: Allergies Allergy/AdvReac Type Severity Reaction Status Date / Time kiwi Allergy Severe Difficulty Verified 12/12/19 08:23 breathing, mouth swells Adhesive Tape Allergy Intermediate Rash And Verified 12/12/19 08:23 Itching gabapentin Allergy Intermediate Hives Verified 12/12/19 08:23 nickel Allergy Intermediate Rash And Verified 12/12/19 08:23 Itching atorvastatin [From Lipitor] Allergy Muscle Ache Verified 12/12/19 08:23 varenicline [From Chantix] Allergy Vomiting Verified 12/12/19 08:23 PMH/Surg Hx/FS Hx/Imm Hx Previously Healthy: Yes Endocrine/Hematology History: Denies: Hx Diabetes Cardiovascular History: Denies: Hx Hypertension, Hx Pacemaker/ICD, Other Cardiovascular Problems/ Disorders Respiratory History: Reports: Hx Asthma - will bring inhalers, Hx Chronic Bronchitis, Hx Chronic Obstructive Pulmonary Disease (COPD), Hx Sleep Apnea, Other Respiratory Problems/Disorders - malignant neoplasm GI History: Reports: Hx Gastroesophageal Reflux Disease - HX OF, NO PROBLEMS NOW Denies: Other GI Disorders History: Denies: Hx Dialysis, Hx Renal Disease - Absent Right Kidney Musculoskeletal History: Reports: Hx Arthritis - THROUGHOUT BODY, Hx Back Problems - spondylolisthesis and spinal stenosis, Other Musculoskeletal History - FIBROMYALGIA Denies: Hx Tendonitis Sensory History: Reports: Hx Contacts or Glasses Denies: Hx Deafness, Hx Hearing Aid Opthamlomology History: Reports: Hx Contacts or Glasses Neurological History: Reports: Other Neuro Impairments/Disorders - PAIN CLINIC PT Psychiatric History: Denies: Hx Panic Disorder - Cancer History Cancer Type, Location and Year: LUNG - SMALL CELL Hx Chemotherapy: Yes Hx Radiation Therapy: Yes - Surgical History Surgical History: Yes Surgery Procedure, Year, and Place: 2010 - LUMBAR [place]AM[place] [facility] [place]AC[place] 09/2017. 1975- C SECTION, [facility]. Oct 20, 2014 trial dorsal column stimulator, [facility] [place] - REMOVED 10/25/14;. 12/16/14 [employer] [id number], W/ ANCHOR CLICK -[id number]- STIMULATOR VERY CONDITIONAL - CAN ONLY HAVE MRI OF HEAD-NO OTHER BODY PART- SCAN IN NORMAL MODE, MAX SLEW RATE -200T/m/s ( [facility] [place] 1.5T MAX IS 120 T/m/s) ---specifics on check list with pt's paper work- scanned into EMR (TECH MUST SCAN IN NORMAL MODE USING OLD T/R HEAD COIL WITH HEAD IN ISOCENTER OF COIL. PT SHOULD HAVE REMOTE TO TURN OFF STIMULATOR) . 12/16/14 [employer] [facility] [id number], W/ ANCHOR CLICK -[id number]- Hx Anesthesia Reactions: No - Immunization History Immunizations Up to Date: Yes Infectious Disease History: No Infectious Disease History: Denies: Traveled Outside the [place] in Last 30 Days - Family History Known Family History: Negative: Cardiac Disease - Social History Occupation: Retired Lives: With Family Alcohol Use: None Hx Substance Use: No Substance Use Type: Reports: None Substance Use Comment - Amount & Last Used: oxycontin and soma Hx Tobacco Use: Yes Smoking Status (MU): Former Smoker Type: Cigarettes Amount Used/How Often: 1/2-1 PPD X 48 YEARS Length of Time of Smoking/Using Tobacco: SMOKED FOR 45 YEARS Have You Smoked in the Last Year: No Review of Systems Positive: Fever - 100.8 F. Negative: Chills, Skin Diaphoresis Negative: Chest Pain Positive: Shortness Of Breath, Cough - productive with pink tinged sputum Negative: Vomiting, Nausea Negative: Headache All Other Systems Reviewed And Are Negative: Yes Physical Exam - Summary Physical Exam Summary: VITAL SIGNS: Reviewed. GENERAL: Patient is a well-developed and nourished female who is lying comfortable in the stretcher. Patient is not in any acute respiratory distress. HEAD AND FACE: No signs of trauma. No ecchymosis, hematomas or skull depressions. No sinus tenderness. EYES: PERRLA, EOMI x 2, No injected conjunctiva, no nystagmus. EARS: Hearing grossly intact. Ear canals and tympanic membranes are within normal limits. MOUTH: Oropharynx within normal limits. NECK: Supple, trachea is midline, no adenopathy, no JVD, no carotid bruit, no c- spine tenderness, neck with full ROM. CHEST: Symmetric, no tenderness at palpation, LUNGS: Decreased breath sounds bilaterally with crackles and rales, 92% O2 stat on 4L CVS: Regular rhythm, S1 and S2 present, tachycardic with systolic injection murmur ABDOMEN: Soft, non-tender. No signs of distention. No rebound no guarding, and no masses palpated. Bowel sounds are normal. EXTREMITIES: FROM in all major joints, no edema, no cyanosis or clubbing. NEURO: Alert and oriented x 3. No acute neurological deficits. Speech is normal and follows commands. SKIN: Dry and warm Triage Information Reviewed: Yes Vital Signs On Initial Exam: Initial Vitals Temp Pulse Resp BP Pulse Ox 100.8 F 105 22 130/55 88 12/12/19 08:19 12/12/19 08:19 12/12/19 08:19 12/12/19 08:19 12/12/19 08:19 Vital Signs Reviewed: Yes Procedures - Sedation Patient Received Moderate/Deep Sedation with Procedure: No Diagnostics - Vital Signs Vital Signs Temp Pulse Resp BP Pulse Ox 12/12/19 08:19 100.8 F 105 22 130/55 88 - Laboratory Result Diagrams: 12/12/19 08:42 12/12/19 08:42 Lab Statement: Any lab studies that have been ordered have been reviewed, and results considered in the medical decision making process. - Radiology CXR Radiology Interpretation Completed By: Radiologist Summary of Radiographic Findings: #. The RIGHT pleural effusion appears new compared with the prior exam. #. Pulmonary fibrosis. Consider inflammatory infiltrate at the RIGHT mid to lower lung zone. ED physician has reviewed this report. - EKG 0841 Cardiac Rate: Tachycardia - 100 BPM EKG Rhythm: Sinus Tachycardia ST Segment: Normal EKG Comparison: No Significant Change - From EKG on 11/09/19 Summary of EKG Findings: Sinus tachycardia at 100 BPMs with a RBBB and no ST elevations. Interpreted by Dr. Unger at 0850 12/12/2019. No change from previous EKG on 11/09/19. Course/Dx - Course Assessment/Plan: This pt is a 74 Y/O F presenting to [facility] accompanied by her daughter with a CC of SOB that began 12/09/2019 and has been worsening since 2019. She states that she has a productive cough of pink sputum. She is usually on 2 L of O2 at home but has had to up it to 4L starting 12/10/2019 due to her SOB. She states that she has had a fever of a highest temperature of 100.8 F. She states that she has no aggravating factors. She states that her home nebulizer has helped to alleviate her symptoms. She denies any N/V, chills, diaphoresis, CP, and headaches. She states that she has a PMHx of COPD. Blood work without any significant abnormality except for slight anemia, sodium was 134, chloride 100, glucose 108, CRP 336.43, BNP 190. Influenza A and B is negative. Chest x-ray impression: The right pleural effusion appears new compared with prior exam. Pulmonary fibrosis. Consider inflammatory infiltrate at the right mid to lower lung zone. In the ED course the patient was given Rocephin and azithromycin. At this point I discussed my physical exam and findings with Dr. Payne from the hospital services and the current course for the patient is admission. At this point the patient is hemodynamically stable alert and oriented 3. - Diagnoses Differential Diagnosis/HQI/PQRI: Positive: Bronchitis, CHF, Chest Wall Pain, COPD Exacerbation, RI, Pneumonia Provider Diagnoses: Pneumonia, COPD exacerbation - Physician Notifications Discussed Care of Patient With: Ramone Payne Time Discussed With Above Provider: 10:03 Instructed by Provider To: Admit As Inpatient Admit/Transition Orders Completed By ED Provider: Yes Discharge ED - Sign-Out/Discharge Documenting (check all that apply): Patient Departure - admitted - Discharge Plan Condition: Stable Disposition: ADMITTED TO [facility] - Billing Disposition and Condition Condition: STABLE Disposition: Admitted to [facility] - Attestation Statements Document Initiated by Scribe: Yes Documenting Scribe: Mk Antunez Provider For Whom [place] is Documenting (Include Credential): Dionisio Unger MD Scribe Attestation: Mk Marroquin, scribed for Dionisio Unger MD on 12/12/19 at 1806. Scribe Documentation Reviewed: Yes Provider Attestation: The documentation as recorded by the Mk jackson accurately reflects the service I personally performed and the decisions made by , Dionisio Unger MD Status of Scribe Document: Viewed
[2019-12-12 08:55] LABS: ABS Eosinophils 0.1 10^3/ul (0-0.6); ABS Lymphocytes 0.7 10^3/ul (1.0-4.8); ABS Monocytes 0.6 10^3/ul (0-0.8); ABS Neutrophils 8.7 10^3/ul (1.5-7.7); Hematocrit 31 % (35-47); Hemoglobin 10.4 g/dL (12.0-16.0); Lymphocyte % 6.8 %; Mean Corpuscular HGB Conc 33 g/dL (31-36); Mean Corpuscular Hemoglobin 30 pg (27-31); Mean Corpuscular Volume 88 fL (80-97); Platelet Count 205 10^3/uL (150-450); Red Blood Count 3.52 10^6 /uL (3.70-4.87); Red Cell Distribution Width 17 % (10-15); White Blood Count 10.1 10^3/uL (3.5-10.8)
[2019-12-12 09:07] LABS: Influenza A Molecular NEGATIVE (Negative); Influenza B Molecular NEGATIVE (Negative)
[2019-12-12 09:11] LABS: Albumin 3.5 g/dL (3.2-5.2); Albumin/Globulin Ratio 0.9 (1-3); BUN/Creatinine Ratio 18.2 (8-20); C Reactive Protein 336.43 mg/L (<8.01); Calcium 9.3 mg/dL (8.6-10.3); EGFR African American 76.2 (>60); Globulin 3.8 g/dL (2-4); Potassium 4.1 mmol/L (3.5-5.0); Total Bilirubin 0.7 mg/dL (0.2-1.0); Total Protein 7.3 g/dL (6.4-8.9)
[2019-12-12 09:13] LABS: Troponin I 0.01 ng/mL (<0.03)
[2019-12-12] MEDS ORDERED: cefTRIAXone(*) 1 GM in NS 0.9% 50 ML* 50 ML IVPB ONE (09:41)
[2019-12-12] MEDS ORDERED: Ondansetron INJ* 2 MG/ML VIAL IV PRN (10:35)
[2019-12-12] MEDS ORDERED: Albuterol 2.5 MG/3 ML NEB.SOL* (0.083%) INH PRN (10:35)
[2019-12-12] MEDS ORDERED: Acetaminophen TAB* 325 MG PO PRN (10:35)
[2019-12-12] MEDS ORDERED: Ibuprofen TAB* 200 MG PO PRN (10:39)
[2019-12-12] MEDS ORDERED: NS 0.9% 1000 ML** 1,000 ML IV SCH (10:45)
[2019-12-12] MEDS ORDERED: Iodixanol* (CONTRAST) 320 MG/ML 100 ML SDV IV ONE (10:49)
[2019-12-12] MEDS: Albuterol/Ipratropium NEB.SOL* Albuterol 2.5 MG/Ipratropium 0.5 MG 3 ML INH SCH ×5 (12:03→23:10)
--- NOTE | 2019-12-12 12:56 | HP ---
AMENDED REPORT NOW INCLUDES ADDENDUM FOR REVIEW OF SYSTEMS CC: Dr. Emmy Jeronimo; Dr. Cynthia Melendez; Dr. Camryn Reynolds * ADMISSION HISTORY AND PHYSICAL: DATE OF ADMISSION: 12/12/19 PRIMARY CARE PROVIDER: Dr. Emmy Jeronimo. OUTPATIENT SEAMAN: Dr. Cynthia Melendez. MY ATTENDING WHILE IN THE HOSPITAL: Dr. Ramone Payne.* (DICTATED BY SHAHID ANDERSON) OUTPATIENT ONCOLOGIST: Dr. Camryn Reynolds. CHIEF COMPLAINT: Shortness of breath x3 days. HISTORY OF PRESENT ILLNESS: Ms. Crocker is a 74-year-old female with past medical history significant for small cell lung cancer, status post chemotherapy and radiation, with no signs of current disease; COPD with chronic hypoxic lung disease, on chronic 2 L; and pulmonary fibrosis, who presents to the emergency department because on 12/09/19, the patient began to feel more short of breath. Without obvious provoking factors, this came on gradually and gradually got worse. The patient had subjective fevers. The patient had cough with significant hemoptysis. The patient noted wheezing and used her nebulizers and inhalers with moderate effect, but she did not get better. The patient did not use home prednisone that is listed for shortness of breath. The patient describes hemoptysis having a relatively large volume of blood. The patient has pleuritic chest pain under her right breast. No other chest pain. No swelling in her legs. No recent immobilization. No nausea or vomiting. No abdominal pain, diarrhea. No muscle aches. No sick contacts. No recent changes to her medications. The patient has been following with her instrument lens grinder/oncologist, had a chest CTA on 11/09/19 which showed no recurrence of her cancer. The patient has never had a blood clot. The patient in the emergency room was found to be tachycardic, hypoxic requiring 4 L of oxygen which is above the patient's baseline of 2, having low- grade fever. The patient had a chest x-ray, which showed possible inflammatory infiltrate in the right lower lobe with possible associated small pleural effusion with superimposed on chronic pulmonary fibrosis. Due to concern for acute hypoxic respiratory failure due to possible pneumonia, we were asked to evaluate the patient for admission to the hospital. PAST MEDICAL HISTORY: Small cell lung cancer; COPD; chronic hypoxic respiratory failure, on 2 L; chronic low back pain; pulmonary fibrosis; iron- deficiency anemia. PAST SURGICAL HISTORY: Spinal stimulator placement, lumbar spinal surgery, port insertion, lung tumor resection. MEDICATIONS: 1. Soma 350 mg p.o. t.i.d. as needed. 2. Amitriptyline 10 mg p.o. at bedtime. 3. Advair Diskus 500/50 one puff inhalation b.i.d. as needed. 4. Pregabalin 100 mg p.o. t.i.d. 5. Percocet 10/325 one tab p.o. q.4 to 6 hours as needed. 6. Mirapex 0.25 mg p.o. daily. 7. Calcium carbonate 600 mg p.o. b.i.d. 8. Benzonatate 100 mg p.o. t.i.d. as needed. 9. MiraLAX 17 g p.o. daily. 10. Albuterol inhaler 1 puff inhalation 4 times daily as needed. 11. Theragran with minerals 1 tab p.o. daily. 12. OxyContin 10 mg p.o. q.12 hours as needed. 13. Ventolin 2.5 mg inhalation 4 times daily as needed. 14. Leg Cramps PM 1 tab p.o. at bedtime. 15. Melatonin 1 tab p.o. at bedtime as needed. 16. Vitamin B12 500 mcg p.o. daily. 17. PreserVision AREDS 1 p.o. b.i.d. 18. Ibuprofen 200 mg p.o. q.6 hours as needed. 19. Tiotropium inhalation 2 puffs inhalation daily. 20. Miracle mouthwash 1 wash swish and spit t.i.d. 21. Prednisone 50 mg p.o. daily as needed for shortness of breath. ALLERGIES: KIWI, GABAPENTIN, ADHESIVE TAPE, NICKEL, LIPITOR, CHANTIX. FAMILY HISTORY: The patient's father of an [place]. The patient's mother of breast cancer and had diabetes mellitus type 2. SOCIAL HISTORY: The patient has greater than 30-pack year history of smoking. The patient denies illicit drug use or alcohol use. 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 The patient is and has 3 children. The patient's surrogate decision makers will be her daughters, Krissy Valdovinos and Aruna Gomez. PHYSICAL EXAMINATION GENERAL: The patient is a 74-year-old female, who appears stated age and sitting in the bed with slightly increased work of breathing. VITAL SIGNS: Temperature 100.8, pulse rate 90, respiratory rate 22, oxygen saturation 92% on 4 L, blood pressure 130/55. HEENT: Head: Normocephalic, atraumatic. Sclerae anicteric. No conjunctival injection. Nasal mucosa moist. Oral mucosa moist. No pharyngeal erythema, discharge, or exudate. NECK: Supple, nontender. No lymphadenopathy. No carotid bruits auscultated. No JVD. RESPIRATORY: Diminished in the right lung base. Slight rhonchi in the right middle lobe. Expiratory wheezing throughout. CARDIAC: Regular rate and rhythm. No clicks, murmurs, gallops, or rubs. Pulses are 2+ in the bilateral dorsalis pedis, posterior tibialis, and radial areas. ABDOMEN: Soft, nontender, nondistended. Bowel sounds present and normoactive in all 4 quadrants. No hepatosplenomegaly. No abdominal bruits auscultated. No hepatojugular reflux. GENITOURINARY: No suprapubic or CVA tenderness. NEURO: Cranial nerves II through XII intact. No focal deficits. Alert and oriented x3. PSYCHIATRIC: Pleasant and cooperative. SKIN: Clean, dry, and intact. No rash. DIAGNOSTIC STUDIES/LAB DATA: White blood cell count 10.1, hemoglobin 10.4, platelet count 205. APTT 35.9. PO2 70, ABG otherwise unremarkable, pH of 7.44. Sodium 134, potassium 4.1, chloride 100, carbon dioxide 26, anion gap 8, BUN 16, creatinine 0.88, glucose 108, lactic acid 1.3, calcium 9.3. Bilirubin 0.7, AST 17, ALT 15, alkaline phosphatase 95. Troponin I 0.01. CRP 336.43. BNP 109. Protein 7.3, albumin 3.5, globulin 3.8. Influenza A and B negative. Studies: Chest x-ray shows right pleural effusion appears new compared to prior exam, pulmonary fibrosis, consider inflammatory infiltrate in the right lower lung zone. Electrocardiogram shows right bundle branch block. No other ST segment elevation or depression. Rate of 100, QTc of 431. No hypertrophy or enlargement. Normal axis. T-wave flattening in lead III, quiet S wave in lead I related to right bundle branch block. Compared to previous exam, there are no significant changes. ASSESSMENT AND PLAN: Impression: Ms. Crocker is a 74-year-old female with past medical history significant for small cell lung cancer, in remission; chronic obstructive pulmonary disease; and pulmonary fibrosis, who presents to the emergency department with 3 days of worsening shortness of breath, cough and hemoptysis, who will be admitted to the hospital with presumed diagnosis of community-acquired pneumonia with chronic obstructive pulmonary disease exacerbation with further elucidation of possible postobstructive component or pulmonary embolism. 1. Sepsis, acute hypoxic respiratory failure, presumed pneumonia. The patient has an elevated temperature. The patient is tachycardic. The patient is needing 4 L of her normal 2 L. The patient is tachypneic. The patient has no white blood cell count. Her ABG looks okay. The patient will be started on ceftriaxone and azithromycin. The patient will have a CTA of the chest to rule out pulmonary embolism and further elucidate the patient's infiltrate and pleural effusion. Thoracentesis will be considered based on the size of the pleural effusion and any worrisome characteristics. The patient will be started on prednisone and scheduled inhalers. The patient will be continued on her routine home inhalers. The patient will have symptomatic treatment with benzonatate and guaifenesin. There is some concern that this represents recurrence of the patient's cancer, though normal CT of the chest from 1 month ago is reassuring. 2. Chronic obstructive pulmonary disease exacerbation. Management as above with steroids, inhalers, antibiotics. 3. Chronic low back pain. Continue the patient's home treatment. It is not worse than normal. 4. Pulmonary fibrosis. This appears unprogressed since the patient's previous exams. 5. Iron-deficiency anemia. The patient was started on iron on her previous admission. It does not appear this has been continued. At that time, the patient's iron profile was more consistent with anemia of chronic disease. The patient should follow up with her instrument lens grinder/oncologist with this and IV iron should be considered. 6. FEN: The patient will have a regular unrestricted diet and fluids at 150 mL an hour. The patient will not receive a sepsis bolus as she has no elevated lactic acid, no initial hypotension and is perfusing well. 7. DVT prophylaxis: The patient will have Lovenox subcu. 8. Disposition: The patient is admitted inpatient to the hospital with estimated length of stay greater than 2 midnights. 9. Code status: The patient would like to be a full code. TIME SPENT: Approximately 60 minutes was spent on the admission of this patient , 30 of which was spent [id number] with the patient obtaining history and physical and discussing treatment plan. This plan has been discussed with my attending, Dr. Ramone Payne, and he is in agreement. SHAHID ANDERSON ADDENDUM: REVIEW OF SYSTEMS: A 14-point review of systems was reviewed and is negative except as stated above in the HPI. SHAHID ANDERSON [id number]/CPS #: [id number]/[id number] #: [id number] YANDY
[2019-12-12] MEDS: DOXYcycline IV* 100 MG in NS 0.9% 250 ML* 250 ML IVPB SCH ×2 (12:57→23:34)
[2019-12-12] MEDS: Enoxaparin(*) 40 MG/0.4 ML SYR SUBCUT SCH (12:57)
[2019-12-12 14:21] LABS: Urine Appearance Clear; Urine Bilirubin Negative (Negative); Urine Blood Negative (Negative); Urine Color Yellow; Urine Glucose 1+(50 mg/dL) (Negative); Urine Ketones 1+ (Negative); Urine Nitrite Negative (Negative); Urine Protein Negative (Negative); Urine Specific Gravity 1.033 (1.010-1.030); Urine Urobilinogen Negative (Negative)
[2019-12-12] MEDS: Pregabalin 100 mg CAP (*) PO SCH ×2 (14:37→21:08)
[2019-12-12] MEDS: Carisoprodol TAB* 350 MG PO PRN (14:42)
[2019-12-12] MEDS: oxyCODONE SR TAB(*) 10 MG TAB.SR PO PRN (14:43)
[2019-12-12] MEDS ORDERED: Multivitamins/Mins (NF) AREDS2 1 CAP CAP PO SCH (21:00)
[2019-12-12] MEDS: Amitriptyline TAB* 10 MG PO SCH (21:09)
[2019-12-12] MEDS: guaiFENesin ER TAB 600 MG PO SCH (21:09)
[2019-12-12] MEDS: Melatonin 3 MG TAB PO PRN (21:10)
[2019-12-12] MEDS: Calcium Carbonate TAB* 1250 MG (CALCIUM 500 MG) PO SCH (21:10)
[2019-12-12] MEDS: oxyCODONE/Acetamin 5/325 MG* TAB PO PRN (21:10)
[2019-12-12] MEDS: Benzonatate CAP* 100 MG PO PRN (21:13)
[2019-12-13] MEDS: Albuterol/Ipratropium NEB.SOL* Albuterol 2.5 MG/Ipratropium 0.5 MG 3 ML INH SCH ×4 (03:10→20:16)
[2019-12-13] MEDS: oxyCODONE/Acetamin 5/325 MG* TAB PO PRN ×3 (03:50→20:30)
[2019-12-13 05:06] LABS: ABS Lymphocytes 0.4 10^3/ul (1.0-4.8); ABS Monocytes 0.3 10^3/ul (0-0.8); ABS Neutrophils 9.5 10^3/ul (1.5-7.7); Hematocrit 28 % (35-47); Hemoglobin 9.2 g/dL (12.0-16.0); Lymphocyte % 4.1 %; Mean Corpuscular HGB Conc 33 g/dL (31-36); Mean Corpuscular Hemoglobin 29 pg (27-31); Mean Corpuscular Volume 88 fL (80-97); Mean Platelet Volume 8.2 fL (7.4-10.4); Platelet Count 188 10^3/uL (150-450); Red Blood Count 3.18 10^6 /uL (3.70-4.87); Red Cell Distribution Width 17 % (10-15); White Blood Count 10.2 10^3/uL (3.5-10.8)
[2019-12-13 05:28] LABS: BUN/Creatinine Ratio 22.5 (8-20); C Reactive Protein 241.69 mg/L (<8.01); Calcium 8.1 mg/dL (8.6-10.3); EGFR African American 64.3 (>60); EGFR Non-African American 53.1 (>60); Magnesium 1.8 mg/dL (1.9-2.7); Potassium 3.9 mmol/L (3.5-5.0)
[2019-12-13] MEDS: SPIRIVA Respimat* (tiotropium) 2.5 mcg/inh Inhaler INH SCH (07:10)
[2019-12-13] MEDS: Mometasone/Formoter 200/5 MDI INH PRN (07:14)
[2019-12-13] MEDS ORDERED: Pramipexole TAB* 0.5 MG PO SCH ×2 (09:00→21:00)
[2019-12-13] MEDS: Polyethylene Glycol 3350* 17 GM PACKET PO SCH (09:39)
[2019-12-13] MEDS: Pregabalin 100 mg CAP (*) PO SCH ×3 (09:40→20:31)
[2019-12-13] MEDS: guaiFENesin ER TAB 600 MG PO SCH ×2 (09:40→20:31)
[2019-12-13] MEDS: Multivitamins/Minerals TAB PO SCH (09:40)
[2019-12-13] MEDS: Cyanocobalamin TAB* 500 MCG PO SCH (09:40)
[2019-12-13] MEDS: Calcium Carbonate TAB* 1250 MG (CALCIUM 500 MG) PO SCH ×2 (09:40→20:29)
[2019-12-13] MEDS: cefTRIAXone(*) 1 GM in NS 0.9% 50 ML* 50 ML IVPB SCH (09:49)
[2019-12-13] MEDS: Enoxaparin(*) 40 MG/0.4 ML SYR SUBCUT SCH (11:21)
[2019-12-13] MEDS: DOXYcycline IV* 100 MG in NS 0.9% 250 ML* 250 ML IVPB SCH (11:21)
--- NOTE | 2019-12-13 14:37 | PN ---
Subjective Date of Service: 12/13/19 Interval History: HOSPITALIST PROGRESS NOTE Patient seen and examined at bedside. Care reviewed and d/w Jodi Velez RN. She feels better today. Still dyspneic especially with exertion but productive cough is less frequent. Family History: Unchanged from Admission Social History: Unchanged from Admission Past Medical History: Unchanged from Admission Objective Active Medications: Acetaminophen (Tylenol Tab*) 650 mg PO Q6H PRN PRN Reason: MILD PAIN or TEMP > 100.4 Albuterol (Ventolin 2.5 Mg/3 Ml Neb.Johanny*) 2.5 mg INH Q2H PRN PRN Reason: SOB/WHEEZING Albuterol/Ipratropium (Duoneb (Albuterol 2.5 Mg/Ipratropium 0.5 Mg)) 1 neb INH [id number] AWAKE [facility] Last Admin: 12/13/19 12:10 Dose: 1 neb Amitriptyline HCl (Elavil Tab*) 10 mg PO BEDTIME [facility] Last Admin: 12/12/19 21:09 Dose: 10 mg Benzonatate (Tessalon Cap*) 100 mg PO BID PRN PRN Reason: COUGH Last Admin: 12/12/19 21:13 Dose: 100 mg Calcium Carbonate (Calcium Carbonate Tab*) 1,250 mg PO BID [facility] Last Admin: 12/13/19 09:40 Dose: 1,250 mg Carisoprodol (Soma Tab*) 350 mg PO TID PRN PRN Reason: SPASMS Last Admin: 12/12/19 14:42 Dose: 350 mg Cyanocobalamin (Vitamin B12 Tab*) 500 mcg PO DAILY [facility] Last Admin: 12/13/19 09:40 Dose: 500 mcg Enoxaparin Sodium (Lovenox(*)) 40 mg SUBCUT Q24H [facility] Last Admin: 12/13/19 11:21 Dose: 40 mg Guaifenesin (Mucinex*) 1,200 mg PO BID [facility] Last Admin: 12/13/19 09:40 Dose: 1,200 mg Doxycycline Hyclate 100 mg/ (Sodium Chloride) 250 mls @ 250 mls/hr IVPB Q12H [facility] Last Admin: 12/13/19 11:21 Dose: 250 mls/hr Ceftriaxone Sodium 1 gm/ (Sodium Chloride) 50 mls @ 200 mls/hr IVPB Q24H [facility] Last Admin: 12/13/19 09:49 Dose: 200 mls/hr Sodium Chloride (Ns 0.9% 1000 Ml) 1,000 mls @ 150 mls/hr IV PER RATE [facility] Last Admin: 12/12/19 23:34 Dose: 150 mls/hr Melatonin (Melatonin) 3 mg PO BEDTIME PRN PRN Reason: SLEEP Last Admin: 12/12/19 21:10 Dose: 3 mg Mometasone Furoate/Formoterol Fumar (Dulera 200/5 Mdi*) 2 puff INH BID PRN PRN Reason: SOB/WHEEZING Last Admin: 12/13/19 07:14 Dose: 2 puff Multivitamins/Minerals (Theragran/Minerals Tab*) 1 tab PO DAILY [facility] Last Admin: 12/13/19 09:40 Dose: 1 tab Ondansetron HCl (Zofran Inj*) 4 mg IV Q6H PRN PRN Reason: NAUSEA Oxycodone HCl (Oxycontin(*)) 10 mg PO Q12H PRN PRN Reason: PAIN - MODERATE Last Admin: 12/12/19 14:43 Dose: 10 mg Oxycodone/Acetaminophen (Percocet 5/325 Tab*) 2 tab PO Q6H PRN PRN Reason: PAIN - MODERATE Last Admin: 12/13/19 03:50 Dose: 2 tab Polyethylene Glycol/Electrolytes (Miralax*) 17 gm PO DAILY [facility] Last Admin: 12/13/19 09:39 Dose: 17 gm Pramipexole Dihydrochloride (Mirapex Tab*) 0.25 mg PO DAILY [facility] Last Admin: 12/13/19 09:39 Dose: 0.25 mg Prednisone (Deltasone 20 Mg Tab) 60 mg PO DAILY [facility] Last Admin: 12/13/19 09:40 Dose: 60 mg Pregabalin (Lyrica 100 Mg Cap (*)) 100 mg PO TID [facility] Last Admin: 12/13/19 14:03 Dose: 100 mg Tiotropium [place] (Spiriva Respimat 2.5 Mcg) 2 puff INH DAILY [facility] Last Admin: 12/13/19 07:10 Dose: 2 puff Vital Signs - 8 hr 12/13/19 12/13/19 12/13/19 06:45 06:49 07:15 Temperature 98.1 F Pulse Rate 89 Respiratory 20 20 18 Rate Blood Pressure 123/47 (mmHg) O2 Sat by Pulse 97 Oximetry 12/13/19 12/13/19 12/13/19 07:18 09:40 11:15 Temperature 97.7 F Pulse Rate 83 79 Respiratory 16 18 18 Rate Blood Pressure 127/47 (mmHg) O2 Sat by Pulse 97 95 Oximetry 12/13/19 12/13/19 12/13/19 11:21 12:11 14:03 Temperature Pulse Rate 77 Respiratory 18 17 18 Rate Blood Pressure (mmHg) O2 Sat by Pulse 98 Oximetry Oxygen Devices in Use Now: Nasal Cannula Appearance: Pleasant elderly lady sitting up in bed in NAD Eyes: No Scleral Icterus Ears/Nose/Mouth/Throat: Mucous Membranes Moist Neck: Trachea Midline Respiratory: Symmetrical Chest Expansion and Respiratory Effort, - - BS+ bilaterally with crackles on the right base Cardiovascular: RRR - Normal S1 and S2 Neurological: Alert and Oriented x 3, NL Muscle Strength and Tone Result Diagrams: 12/13/19 04:43 12/13/19 04:46 Microbiology and Other Data: Microbiology 12/12/19 08:42 Aerobic Blood Culture - Preliminary Blood Venous No Growth Day 1 Anaerobic Blood Culture - Preliminary No Growth Day 1 12/12/19 08:47 Aerobic Blood Culture - Preliminary Blood Venous No Growth Day 1 Anaerobic Blood Culture - Preliminary No Growth Day 1 12/12/19 14:12 Legionella Urinary Antigen - Final Urine Negative Legionella Antigen Streptococcus pneumoniae Ag Screen - Final Negative S. 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 - Patient Problems (1) Sepsis Comment: - Presentation compatible with sepsis on admission with fever and tachycardia. Source is pneumonia. (2) Acute and chronic respiratory failure with hypoxia Comment: - Patient is on 2 liters of O2 at baseline and now up to 4 liters. - Continue to monitor. (3) Pneumonia Comment: - CTA chest was negative for PE and it showed RML consolidation. - Pneumococcal and Legionella Ag are negative. - Continue Ceftriaxone and Doxycyline. (4) COPD exacerbation Comment: - Secondary to pneumonia. - Continue antibiotics, bronchodilators, prednisone burst. (5) Chronic back pain Comment: - At baseline. - Continue Oxycodone, Amitryptiline, Carisoprodol. (6) DVT prophylaxis Comment: - Lovenox (7) Full code status Status and Disposition: Inpatient.
[2019-12-13] MEDS: Amitriptyline TAB* 10 MG PO SCH (20:29)
[2019-12-13] MEDS: Pramipexole TAB* 0.5 MG PO SCH (22:28)
[2019-12-14] MEDS: Albuterol/Ipratropium NEB.SOL* Albuterol 2.5 MG/Ipratropium 0.5 MG 3 ML INH SCH ×4 (01:10→19:34)
[2019-12-14] MEDS: DOXYcycline IV* 100 MG in NS 0.9% 250 ML* 250 ML IVPB SCH ×3 (01:14→23:25)
[2019-12-14 06:08] LABS: ABS Lymphocytes 1.1 10^3/ul (1.0-4.8); ABS Monocytes 0.8 10^3/ul (0-0.8); Hematocrit 31 % (35-47); Hemoglobin 10.4 g/dL (12.0-16.0); Lymphocyte % 10.1 %; Mean Corpuscular HGB Conc 33 g/dL (31-36); Mean Corpuscular Hemoglobin 29 pg (27-31); Mean Corpuscular Volume 88 fL (80-97); Mean Platelet Volume 8.3 fL (7.4-10.4); Platelet Count 237 10^3/uL (150-450); Red Blood Count 3.55 10^6 /uL (3.70-4.87); Red Cell Distribution Width 16 % (10-15); White Blood Count 10.8 10^3/uL (3.5-10.8)
[2019-12-14 06:22] LABS: Calcium 9.5 mg/dL (8.6-10.3); EGFR African American 102.6 (>60); EGFR Non-African American 84.8 (>60); Potassium 3.6 mmol/L (3.5-5.0)
[2019-12-14] MEDS: Mometasone/Formoter 200/5 MDI INH PRN (07:42)
[2019-12-14] MEDS: SPIRIVA Respimat* (tiotropium) 2.5 mcg/inh Inhaler INH SCH (07:42)
[2019-12-14] MEDS: guaiFENesin ER TAB 600 MG PO SCH ×2 (09:38→20:39)
[2019-12-14] MEDS: Pregabalin 100 mg CAP (*) PO SCH ×3 (09:39→20:38)
[2019-12-14] MEDS: Calcium Carbonate TAB* 1250 MG (CALCIUM 500 MG) PO SCH ×2 (09:39→20:39)
[2019-12-14] MEDS: Multivitamins/Minerals TAB PO SCH (09:39)
[2019-12-14] MEDS: Polyethylene Glycol 3350* 17 GM PACKET PO SCH (09:39)
[2019-12-14] MEDS: Cyanocobalamin TAB* 500 MCG PO SCH (09:39)
[2019-12-14] MEDS: oxyCODONE/Acetamin 5/325 MG* TAB PO PRN (09:39)
[2019-12-14] MEDS: cefTRIAXone(*) 1 GM in NS 0.9% 50 ML* 50 ML IVPB SCH (09:42)
[2019-12-14] MEDS: Carisoprodol TAB* 350 MG PO PRN ×2 (09:48→20:37)
[2019-12-14] MEDS: Enoxaparin(*) 40 MG/0.4 ML SYR SUBCUT SCH (12:00)
--- NOTE | 2019-12-14 14:18 | PN ---
Subjective Date of Service: 12/14/19 Interval History: Reporting bilateral ear pain, left worse than right that are also itchy. Still short of breath at rest but improved since yesterday. Coughing, stated that she brought up a good amount of sputum this am that was mixed with bright red blood. At home, she stated she had prolonged, harsh coughing fits. Oxygen is humidified. Is concerned about going back home due to her having symptoms of the flu. Family History: Unchanged from Admission Social History: Unchanged from Admission Past Medical History: Unchanged from Admission Objective Active Medications: Acetaminophen (Tylenol Tab*) 650 mg PO Q6H PRN PRN Reason: MILD PAIN or TEMP > 100.4 Albuterol (Ventolin 2.5 Mg/3 Ml Neb.Johanny*) 2.5 mg INH Q2H PRN PRN Reason: SOB/WHEEZING Albuterol/Ipratropium (Duoneb (Albuterol 2.5 Mg/Ipratropium 0.5 Mg)) 1 neb INH [id number] AWAKE [facility] Last Admin: 12/14/19 13:59 Dose: 1 neb Amitriptyline HCl (Elavil Tab*) 10 mg PO BEDTIME [facility] Last Admin: 12/13/19 20:29 Dose: 10 mg Benzonatate (Tessalon Cap*) 100 mg PO BID PRN PRN Reason: COUGH Last Admin: 12/12/19 21:13 Dose: 100 mg Calcium Carbonate (Calcium Carbonate Tab*) 1,250 mg PO BID [facility] Last Admin: 12/14/19 09:39 Dose: 1,250 mg Carisoprodol (Soma Tab*) 350 mg PO TID PRN PRN Reason: SPASMS Last Admin: 12/14/19 09:48 Dose: 350 mg Cyanocobalamin (Vitamin B12 Tab*) 500 mcg PO DAILY [facility] Last Admin: 12/14/19 09:39 Dose: 500 mcg Enoxaparin Sodium (Lovenox(*)) 40 mg SUBCUT Q24H [facility] Last Admin: 12/14/19 12:00 Dose: 40 mg Guaifenesin (Mucinex*) 1,200 mg PO BID [facility] Last Admin: 12/14/19 09:38 Dose: 1,200 mg Doxycycline Hyclate 100 mg/ (Sodium Chloride) 250 mls @ 250 mls/hr IVPB Q12H [facility] Last Admin: 12/14/19 12:00 Dose: 250 mls/hr Ceftriaxone Sodium 1 gm/ (Sodium Chloride) 50 mls @ 200 mls/hr IVPB Q24H [facility] Last Admin: 12/14/19 09:42 Dose: 200 mls/hr Melatonin (Melatonin) 3 mg PO BEDTIME PRN PRN Reason: SLEEP Last Admin: 12/12/19 21:10 Dose: 3 mg Mometasone Furoate/Formoterol Fumar (Dulera 200/5 Mdi*) 2 puff INH BID PRN PRN Reason: SOB/WHEEZING Last Admin: 12/14/19 07:42 Dose: 2 puff Multivitamins/Minerals (Theragran/Minerals Tab*) 1 tab PO DAILY [facility] Last Admin: 12/14/19 09:39 Dose: 1 tab Ondansetron HCl (Zofran Inj*) 4 mg IV Q6H PRN PRN Reason: NAUSEA Oxycodone HCl (Oxycontin(*)) 10 mg PO Q12H PRN PRN Reason: PAIN - MODERATE Last Admin: 12/12/19 14:43 Dose: 10 mg Oxycodone/Acetaminophen (Percocet 5/325 Tab*) 2 tab PO Q6H PRN PRN Reason: PAIN - MODERATE Last Admin: 12/14/19 09:39 Dose: 2 tab Polyethylene Glycol/Electrolytes (Miralax*) 17 gm PO DAILY [facility] Last Admin: 12/14/19 09:39 Dose: 17 gm Pramipexole Dihydrochloride (Mirapex Tab*) 0.25 mg PO BEDTIME [facility] Last Admin: 12/13/19 22:28 Dose: 0.25 mg Prednisone (Deltasone 20 Mg Tab) 60 mg PO DAILY [facility] Last Admin: 12/14/19 09:39 Dose: 60 mg Pregabalin (Lyrica 100 Mg Cap (*)) 100 mg PO TID [facility] Last Admin: 12/14/19 09:39 Dose: 100 mg Tiotropium [place] (Spiriva Respimat 2.5 Mcg) 2 puff INH DAILY [facility] Last Admin: 12/14/19 07:42 Dose: 2 puff Vital Signs - 8 hr 12/14/19 12/14/19 12/14/19 07:43 07:58 08:00 Temperature 99.1 F Pulse Rate 93 Respiratory 20 20 20 Rate Blood Pressure 150/57 (mmHg) O2 Sat by Pulse 96 Oximetry 12/14/19 12/14/19 12/14/19 09:39 09:48 10:58 Temperature 98.3 F Pulse Rate 96 Respiratory 20 20 20 Rate Blood Pressure 136/58 (mmHg) O2 Sat by Pulse 94 Oximetry 12/14/19 12/14/19 12/14/19 11:38 11:39 14:03 Temperature Pulse Rate Respiratory 20 20 20 Rate Blood Pressure (mmHg) O2 Sat by Pulse Oximetry Oxygen Devices in Use Now: Nasal Cannula Appearance: This is a well developed woman seen sitting up at edge of bed, in no acute distress. Eyes: No Scleral Icterus, PERRLA Ears/Nose/Mouth/Throat: NL Teeth, Lips, Gums, Clear Oropharnyx, Mucous Membranes Moist, - - Redness rimming bilateral tympanic membranes. Bilateral TM have purulance present behind the mmebrane. Neck: NL Appearance and Movements; NL JVP, Trachea Midline Respiratory: Symmetrical Chest Expansion and Respiratory Effort, - - Expiratory wheezes throughout. Cardiovascular: NL Sounds; No Murmurs; No JVD, RRR, No Edema Abdominal: NL Sounds; No Tenderness; No Distention Lymphatic: No Cervical Adenopathy Extremities: No Edema, No Clubbing, Cyanosis Skin: No Rash or Ulcers, No Nodules or Sclerosis Neurological: Alert and Oriented x 3 Result Diagrams: 12/14/19 05:40 12/14/19 05:40 Microbiology and Other Data: Microbiology 12/12/19 08:42 Aerobic Blood Culture - Preliminary Blood Venous No Growth Day 1 Anaerobic Blood Culture - Preliminary No Growth Day 1 12/12/19 08:47 Aerobic Blood Culture - Preliminary Blood Venous No Growth Day 1 Anaerobic Blood Culture - Preliminary No Growth Day 1 12/12/19 14:12 Legionella Urinary Antigen - Final Urine Negative Legionella Antigen Streptococcus pneumoniae Ag Screen - Final Negative S. 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 - Patient Problems (1) Sepsis Current Visit: Yes Status: Acute Comment: - Presentation compatible with sepsis on admission with fever and tachycardia. Source is pneumonia. -Has improved. (2) Pneumonia Current Visit: Yes Status: Acute Code(s): J18.9 - PNEUMONIA, UNSPECIFIED ORGANISM SNOMED Code(s): 880336391 Comment: - CTA chest was negative for PE and it showed RML consolidation. - Pneumococcal and Legionella Ag are negative. - Continue Ceftriaxone and Doxycyline. (3) Bilateral otitis media with effusion Current Visit: Yes Status: Acute Code(s): H65.93 - UNSPECIFIED NONSUPPURATIVE OTITIS MEDIA, BILATERAL SNOMED Code(s): 99118303 Comment: -Reporting pain to inner ears, left worse than right with itchy ear canals. Noted to have purulance behind each TM. Is already on doxycycline. Added prednisolone drops for pruritis. (4) Normocytic anemia Current Visit: No Status: Acute Code(s): D64.9 - ANEMIA, UNSPECIFIED SNOMED Code(s): 708305962 Comment: Stable. - order w/u (5) COPD exacerbation Current Visit: Yes Status: Acute Code(s): J44.1 - CHRONIC OBSTRUCTIVE PULMONARY DISEASE W (ACUTE) EXACERBATION SNOMED Code(s): 246966958 Comment: - Secondary to pneumonia. - Continue antibiotics, bronchodilators, prednisone burst. (6) DVT prophylaxis Current Visit: Yes Status: Acute Code(s): DHE9007 - SNOMED Code(s): 801454448 Comment: - Lovenox (7) Full code status Current Visit: Yes Status: Acute Code(s): Z78.9 - OTHER SPECIFIED HEALTH STATUS SNOMED Code(s): 408146343 Status and Disposition: Inpatient.
[2019-12-14] MEDS: prednisoLONE 1% OPHTH.SUSP* 5 ML OPHTH.SUSP SCH ×2 (14:58→20:41)
[2019-12-14] MEDS: Pramipexole TAB* 0.5 MG PO SCH (20:38)
[2019-12-14] MEDS: Amitriptyline TAB* 10 MG PO SCH (20:39)
[2019-12-14] MEDS ORDERED: Pramipexole TAB* 0.5 MG PO SCH (21:00)
[2019-12-14] MEDS: oxyCODONE SR TAB(*) 10 MG TAB.SR PO PRN (23:24)
[2019-12-15] MEDS: Albuterol/Ipratropium NEB.SOL* Albuterol 2.5 MG/Ipratropium 0.5 MG 3 ML INH SCH ×4 (01:11→19:53)
[2019-12-15] MEDS: SPIRIVA Respimat* (tiotropium) 2.5 mcg/inh Inhaler INH SCH (08:05)
[2019-12-15] MEDS: Mometasone/Formoter 200/5 MDI INH PRN (08:06)
[2019-12-15] MEDS: Polyethylene Glycol 3350* 17 GM PACKET PO SCH (10:02)
[2019-12-15] MEDS: guaiFENesin ER TAB 600 MG PO SCH ×2 (10:03→19:57)
[2019-12-15] MEDS: Calcium Carbonate TAB* 1250 MG (CALCIUM 500 MG) PO SCH ×2 (10:04→19:54)
[2019-12-15] MEDS: Cyanocobalamin TAB* 500 MCG PO SCH (10:04)
[2019-12-15] MEDS: Multivitamins/Minerals TAB PO SCH (10:04)
[2019-12-15] MEDS: Pregabalin 100 mg CAP (*) PO SCH ×3 (10:04→19:57)
[2019-12-15] MEDS: Carisoprodol TAB* 350 MG PO PRN ×2 (10:04→19:54)
[2019-12-15] MEDS: oxyCODONE/Acetamin 5/325 MG* TAB PO PRN ×2 (10:04→19:56)
[2019-12-15] MEDS: cefTRIAXone(*) 1 GM in NS 0.9% 50 ML* 50 ML IVPB SCH (10:05)
[2019-12-15] MEDS: prednisoLONE 1% OPHTH.SUSP* 5 ML OPHTH.SUSP SCH ×2 (11:58→21:48)
[2019-12-15] MEDS: DOXYcycline IV* 100 MG in NS 0.9% 250 ML* 250 ML IVPB SCH ×2 (12:01→23:55)
[2019-12-15] MEDS: Enoxaparin(*) 40 MG/0.4 ML SYR SUBCUT SCH (12:01)
[2019-12-15] MEDS: Benzonatate CAP* 100 MG PO PRN (19:54)
[2019-12-15] MEDS: Melatonin 3 MG TAB PO PRN (19:57)
[2019-12-15] MEDS: Pramipexole TAB* 0.5 MG PO SCH (19:58)
[2019-12-15] MEDS: Amitriptyline TAB* 10 MG PO SCH (19:58)
--- NOTE | 2019-12-15 20:04 | PN ---
Subjective Date of Service: 12/15/19 Interval History: Patient admits to feeling somewhat dyspneic with ambulation today. Denies SOB at rest, fever/chills, chest pain, abd pain. Feels greatly improved from admission. Family History: Unchanged from Admission Social History: Unchanged from Admission Past Medical History: Unchanged from Admission Objective Active Medications: Acetaminophen (Tylenol Tab*) 650 mg PO Q6H PRN PRN Reason: MILD PAIN or TEMP > 100.4 Albuterol (Ventolin 2.5 Mg/3 Ml Neb.Johanny*) 2.5 mg INH Q2H PRN PRN Reason: SOB/WHEEZING Albuterol/Ipratropium (Duoneb (Albuterol 2.5 Mg/Ipratropium 0.5 Mg)) 1 neb INH [id number] AWAKE [facility] Last Admin: 12/15/19 19:53 Dose: 1 neb Amitriptyline HCl (Elavil Tab*) 10 mg PO BEDTIME [facility] Last Admin: 12/14/19 20:39 Dose: 10 mg Benzonatate (Tessalon Cap*) 100 mg PO BID PRN PRN Reason: COUGH Last Admin: 12/12/19 21:13 Dose: 100 mg Calcium Carbonate (Calcium Carbonate Tab*) 1,250 mg PO BID [facility] Last Admin: 12/15/19 10:04 Dose: 1,250 mg Carisoprodol (Soma Tab*) 350 mg PO TID PRN PRN Reason: SPASMS Last Admin: 12/15/19 10:04 Dose: 350 mg Cyanocobalamin (Vitamin B12 Tab*) 500 mcg PO DAILY [facility] Last Admin: 12/15/19 10:04 Dose: 500 mcg Enoxaparin Sodium (Lovenox(*)) 40 mg SUBCUT Q24H [facility] Last Admin: 12/15/19 12:01 Dose: 40 mg Guaifenesin (Mucinex*) 1,200 mg PO BID [facility] Last Admin: 12/15/19 10:03 Dose: 1,200 mg Doxycycline Hyclate 100 mg/ (Sodium Chloride) 250 mls @ 250 mls/hr IVPB Q12H [facility] Last Admin: 12/15/19 12:01 Dose: 250 mls/hr Ceftriaxone Sodium 1 gm/ (Sodium Chloride) 50 mls @ 200 mls/hr IVPB Q24H [facility] Last Admin: 12/15/19 10:05 Dose: 200 mls/hr Melatonin (Melatonin) 3 mg PO BEDTIME PRN PRN Reason: SLEEP Last Admin: 12/12/19 21:10 Dose: 3 mg Mometasone Furoate/Formoterol Fumar (Dulera 200/5 Mdi*) 2 puff INH BID PRN PRN Reason: SOB/WHEEZING Last Admin: 12/15/19 08:06 Dose: 2 puff Multivitamins/Minerals (Theragran/Minerals Tab*) 1 tab PO DAILY [facility] Last Admin: 12/15/19 10:04 Dose: 1 tab Ondansetron HCl (Zofran Inj*) 4 mg IV Q6H PRN PRN Reason: NAUSEA Oxycodone HCl (Oxycontin(*)) 10 mg PO Q12H PRN PRN Reason: PAIN - MODERATE Last Admin: 12/14/19 23:24 Dose: 10 mg Oxycodone/Acetaminophen (Percocet 5/325 Tab*) 2 tab PO Q6H PRN PRN Reason: PAIN - MODERATE Last Admin: 12/15/19 10:04 Dose: 2 tab Polyethylene Glycol/Electrolytes (Miralax*) 17 gm PO DAILY [facility] Last Admin: 12/15/19 10:02 Dose: 17 gm Pramipexole Dihydrochloride (Mirapex Tab*) 0.25 mg PO BEDTIME [facility] Last Admin: 12/14/19 20:38 Dose: 0.25 mg Prednisolone Acetate (Pred Forte 1%*) 1 drop .SEE ORDER BID [facility] Last Admin: 12/15/19 11:58 Dose: Not Given Prednisone (Deltasone 20 Mg Tab) 60 mg PO DAILY [facility] Last Admin: 12/15/19 10:03 Dose: 60 mg Pregabalin (Lyrica 100 Mg Cap (*)) 100 mg PO TID [facility] Last Admin: 12/15/19 14:45 Dose: 100 mg Tiotropium [place] (Spiriva Respimat 2.5 Mcg) 2 puff INH DAILY [facility] Last Admin: 12/15/19 08:05 Dose: 2 puff Vital Signs - 8 hr 12/15/19 12/15/19 12/15/19 12:04 14:04 14:45 Temperature Pulse Rate Respiratory 18 18 18 Rate Blood Pressure (mmHg) O2 Sat by Pulse Oximetry 12/15/19 12/15/19 15:15 16:45 Temperature 97.7 F Pulse Rate 82 Respiratory 24 18 Rate Blood Pressure 147/62 (mmHg) O2 Sat by Pulse 96 Oximetry Oxygen Devices in Use Now: Nasal Cannula Appearance: Elderly white female, sitting on edge of bed, appearing comfortable and in NAD Eyes: No Scleral Icterus, - - PERRL Ears/Nose/Mouth/Throat: Mucous Membranes Moist Neck: Trachea Midline Respiratory: Symmetrical Chest Expansion and Respiratory Effort, Clear to Auscultation Cardiovascular: NL Sounds; No Murmurs; No JVD, RRR Abdominal: - - abd soft, nontender, nondistended Extremities: No Edema, No Clubbing, Cyanosis Skin: No Rash or Ulcers Neurological: Alert and Oriented x 3 Result Diagrams: 12/14/19 05:40 12/14/19 05:40 Microbiology and Other Data: Microbiology 12/12/19 08:42 Aerobic Blood Culture - Preliminary Blood Venous No Growth Day 1 Anaerobic Blood Culture - Preliminary No Growth Day 1 12/12/19 08:47 Aerobic Blood Culture - Preliminary Blood Venous No Growth Day 1 Anaerobic Blood Culture - Preliminary No Growth Day 1 12/12/19 14:12 Legionella Urinary Antigen - Final Urine Negative Legionella Antigen Streptococcus pneumoniae Ag Screen - Final Negative S. 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 - Patient Problems (1) Pneumonia Current Visit: Yes Status: Acute Code(s): J18.9 - PNEUMONIA, UNSPECIFIED ORGANISM SNOMED Code(s): 500631800 Comment: - CTA chest was negative for PE and it showed RML consolidation - Pneumococcal and Legionella Ag are negative - Continue Doxycyline - Sputum culture is positive for pseudomonas, will change ceftriaxone to cefepime - Initially presented with signs of sepsis which have resolved. Patient is asymptomatic and without leukocyotsis (2) Acute and chronic respiratory failure with hypoxia Current Visit: Yes Status: Acute Code(s): J96.21 - ACUTE AND CHRONIC RESPIRATORY FAILURE WITH HYPOXIA SNOMED Code(s): 78850868 Comment: - Patient is on 2 liters of O2 at baseline and was up to 4L due to PNA and COPD exacerbation - Continue prednisone, duonebs, and home inhalers - Still dyspneic on exertion and requiring 3L O2 with exertion (3) Bilateral otitis media with effusion Current Visit: Yes Status: Acute Code(s): H65.93 - UNSPECIFIED NONSUPPURATIVE OTITIS MEDIA, BILATERAL SNOMED Code(s): 00595226 Comment: -Reporting pain to inner ears, left worse than right with itchy ear canals. Noted to have purulance behind each TM. Otitis media covered by doxycyline. Continue prednisolone drops for pruritis. (4) Chronic back pain Current Visit: Yes Status: Acute Code(s): M54.9 - DORSALGIA, UNSPECIFIED; G89.29 - OTHER CHRONIC PAIN SNOMED Code(s): 182853942 Comment: - At baseline. - Continue Oxycodone and Carisoprodol (5) Insomnia Current Visit: Yes Status: Acute Code(s): G47.00 - INSOMNIA, UNSPECIFIED SNOMED Code(s): 617346645 Comment: -continue prn amitriptyline (6) Full code status Current Visit: Yes Status: Acute Code(s): Z78.9 - OTHER SPECIFIED HEALTH STATUS SNOMED Code(s): 912839749 (7) DVT prophylaxis Current Visit: Yes Status: Acute Code(s): AMA2291 - SNOMED Code(s): 197677702 Comment: - Lovenox Status and Disposition: Inpatient.
[2019-12-15] MEDS: Cefepime 2 GM in Dextrose(*) 2 GM/50 ML BAG IV SCH (21:47)
[2019-12-16] MEDS: Albuterol/Ipratropium NEB.SOL* Albuterol 2.5 MG/Ipratropium 0.5 MG 3 ML INH SCH ×2 (01:05→07:14)
[2019-12-16] MEDS: Cefepime 2 GM in Dextrose(*) 2 GM/50 ML BAG IV SCH ×2 (05:23→13:15)
[2019-12-16] MEDS: SPIRIVA Respimat* (tiotropium) 2.5 mcg/inh Inhaler INH SCH (07:14)
[2019-12-16] MEDS: Mometasone/Formoter 200/5 MDI INH PRN (07:14)
[2019-12-16] MEDS: Pregabalin 100 mg CAP (*) PO SCH ×2 (09:35→13:15)
[2019-12-16] MEDS: Polyethylene Glycol 3350* 17 GM PACKET PO SCH (09:35)
[2019-12-16] MEDS: Calcium Carbonate TAB* 1250 MG (CALCIUM 500 MG) PO SCH (09:36)
[2019-12-16] MEDS: Carisoprodol TAB* 350 MG PO PRN (09:36)
[2019-12-16] MEDS: Multivitamins/Minerals TAB PO SCH (09:36)
[2019-12-16] MEDS: guaiFENesin ER TAB 600 MG PO SCH (09:37)
[2019-12-16] MEDS: Cyanocobalamin TAB* 500 MCG PO SCH (09:37)
[2019-12-16] MEDS: oxyCODONE SR TAB(*) 10 MG TAB.SR PO PRN (09:37)
[2019-12-16] MEDS: prednisoLONE 1% OPHTH.SUSP* 5 ML OPHTH.SUSP SCH (09:43)
[2019-12-16] MEDS: Enoxaparin(*) 40 MG/0.4 ML SYR SUBCUT SCH (11:44)
[2019-12-16] MEDS: DOXYcycline IV* 100 MG in NS 0.9% 250 ML* 250 ML IVPB SCH (11:44)
[2019-12-16] MEDS: oxyCODONE/Acetamin 5/325 MG* TAB PO PRN (11:54)
[2019-12-16 12:28] VITALS: BP 147/50
--- NOTE | 2019-12-17 00:31 | DS ---
CC: Dr. Jeronimo; Dr. Melendez * DISCHARGE SUMMARY: DATE OF ADMISSION: 12/12/19 DATE OF DISCHARGE: 12/16/19 PROVIDER: SHAHID Garrido ATTENDING PHYSICIAN WHILE IN THE HOSPITAL: Dr. Quincy Cornejo * (dictated by SHAHID Garrido). PRIMARY CARE PROVIDER: Dr. Jeronimo. OUTPATIENT AMBULATORY TECHNOLOGIST: Dr. Melendez. PRIMARY DIAGNOSES: 1. Pneumonia with positive sputum culture for Pseudomonas aeruginosa. 2. Acute on chronic respiratory failure related to chronic obstructive pulmonary disease exacerbation secondary to pneumonia. 3. Bilateral suppurative otitis media. SECONDARY DIAGNOSES: 1. History of small cell lung cancer, status post chemotherapy and radiation. 2. Chronic obstructive pulmonary disease, on 2 L of oxygen at home. 3. Chronic low back pain. 4. Pulmonary fibrosis. 5. Iron-deficiency anemia. PERTINENT STUDIES/LAB DATA: Chest CT angiogram on 12/12/19, impression: Moderately limited CT pulmonary angiogram without compelling evidence for pulmonary embolism. New consolidation over the right middle lobe area represent pneumonia or less likely lymphatic spread of carcinoma. Small right dependent pleural effusion is increased. Chest x-ray on 12/12/19, right pleural effusion appears new compared to prior exam. Pulmonary fibrosis. Consider inflammatory infiltrate of the right mid to lower lung zones. PERTINENT LAB DATA: Influenza A and B negative. HISTORY OF PRESENT ILLNESS/HOSPITAL COURSE: Ghazal Crocker is a 74-year-old female with past medical history significant for previous small cell lung cancer , status post therapy; COPD, on 2 L oxygen at home; pulmonary fibrosis; chronic low back pain, who presented to the emergency department due to shortness of breath on 12/12/19. Her shortness of breath is worsening despite use of rescue inhalers and nebulizers and she was experiencing hemoptysis as well. For further details regarding her history at presentation, please see history and physical written by SHAHID Delgado. She was found to have pneumonia at admission based on CT angiogram of the chest and she was started empirically on ceftriaxone and azithromycin. She additionally was treated for COPD exacerbation with steroids during her stay. Initially, she was requiring 4 L of oxygen and ultimately with this therapy, she has returned to her baseline requirement of 2 L of oxygen at rest and with ambulation. Her sputum culture was collected and did not have any growth until the day prior to discharge, which demonstrated Pseudomonas aeruginosa. On the date of discharge, the sensitivities revealed that the patient had Pseudomonas in her sputum that was sensitive to levofloxacin. On 12/15/19, her antibiotics were switched to cefepime and she was already previously switched to doxy as well. It appeared that she had Pseudomonas in her sputum during a hospitalization in August 2019 for pneumonia as well and this was her third hospitalization for COPD exacerbation in exactly a calender year. On date of discharge she was afebrile and she was without leukocytosis. Additionally, during her hospital stay, she complained of ear pain and itchiness. She was found on exam to have suppurative otitis media bilaterally. She was already on doxycycline, which does provide coverage for otitis media. She was started on steroid drops as well, which did symptomatically help the itching and her pain was improving by time of discharge. PHYSICAL EXAM ON THE DAY OF DISCHARGE: General: Elder white female, sitting on the edge of bed, appearing comfortable in no acute distress. Eyes: PERRL. Sclerae anicteric. ENT: Mucous membranes moist. Lungs: Clear to auscultation throughout. Cardio: Regular rate and rhythm. Abdomen: Soft, nontender, nondistended. Skin: Warm, dry, and intact. Neuro: The patient is alert and oriented x3. No focal deficits. DISCHARGE PLAN: Diet: Regular unrestricted diet. Activity: The patient may return to normal activity as tolerated with use of 2 L of oxygen as previous. The patient is advised to return to the hospital if she is experiencing hemoptysis, fever, chills, worsening short of breath that does not improve with nebulizers or rescue inhaler, chest pain, loss of consciousness, purulent or bloody drainage from her ears or other concerning symptoms. The patient is advised to follow up with her primary care provider in approximately 1 week. She did mention that she was considering changing primary care providers and I did direct her to the [facility] if she decided to do so, however, we discussed the importance of continuity of care in the outpatient setting with her previous primary care provider. We did establish a followup appointment with Dr. Melednez. At this point, nebulized tobramycin may be beneficial to her as it appears she possibly is colonized for pseudomonas in her airway and she does have multiple pulmonary comorbidities. However, this would be best determined between the patient and Dr. Melendez. She was advised to take her antibiotics until completion. DISCHARGE MEDICATIONS: New Medications: 1. Levofloxacin 750 mg p.o. daily x8 days. 2. Prednisone 60 mg p.o. daily x1 day. 3. Prednisolone 1 drop both ears b.i.d. p.r.n. itching. Continued home medications: 1. Ventolin nebulized solution inhaled 4 times a day p.r.n. shortness of breath /wheezing. 2. Albuterol HFA inhaler 1 puff inhaled 4 times a day p.r.n. shortness of breath/wheezing. 3. Amitriptyline 10 mg p.o. at bedtime. 4. Tessalon 100 mg p.o. t.i.d. p.r.n. cough. 5. Calcium carbonate 60 mg p.o. b.i.d. 6. Soma 350 mg p.o. t.i.d. p.r.n. muscle spasms. 7. Vitamin B12 500 mcg p.o. daily. 8. Advair 1 puff inhaled b.i.d. 9. Ibuprofen 200 mg p.o. q.6 hours p.r.n. pain. 10. Leg Cramps PM 1 tab p.o. at bedtime. 11. Melatonin 1 tab p.o. at bedtime p.r.n. insomnia. 12. Miracle mouthwash liquid swish and spit t.i.d. 13. Multivitamin 1 tab p.o. daily. 14. MiraLAX 17 g p.o. daily. 15. Pramipexole 0.25 mg p.o. daily. 16. Lyrica 100 mg p.o. t.i.d. 17. Tiotropium 2 puffs inhaled daily. 18. PreserVision AREDS softgels 1 cap p.o. b.i.d. 19. Oxycodone 10 mg p.o. q.12 hours p.r.n. pain. 20. Percocet 10/325, 1 tab p.o. q.4 to q.6 hours p.r.n. pain. CONDITION ON DISCHARGE: Stable. DISPOSITION: Home. TIME SPENT: Approximately 45 minutes was spent on this discharge, approximately half that time was spent at bedside evaluating the patient and discussing the plan of care. SHAHID GARRIDO [id number]/[facility] #: [id number] [facility]
--- NOTE | 2019-12-23 08:19 | HP ---
HISTORY AND PHYSICAL: ADDENDUM: REVIEW OF SYSTEMS: A 14-point review of systems was reviewed and is negative except as stated above in the HPI. SHAHID ANDERSON [id number]/[facility] #: [id number] [facility]
== END 2019-12-16 14:30 | disposition home or self-care (01) | DRG 871 ==
LOC: ED 08:17 → MEDTELE 10:35
PROVIDERS: ADMIT Internal Medicine; ATTEND Internal Medicine
DX: A41.52 Sepsis due to Pseudomonas (principal); J15.1 Pneumonia due to Pseudomonas; J96.21 Acute and chronic respiratory failure with hypoxia; J44.0 Chronic obstructive pulmonary disease with (acute) lower respiratory infection; J44.1 Chronic obstructive pulmonary disease with (acute) exacerbation; J90 Pleural effusion, not elsewhere classified; R04.2 Hemoptysis; H66.43 Suppurative otitis media, unspecified, bilateral; M54.5 Low back pain; G89.29 Other chronic pain; J84.10 Pulmonary fibrosis, unspecified; K21.9 Gastro-esophageal reflux disease without esophagitis; G47.00 Insomnia, unspecified; M79.7 Fibromyalgia; M19.90 Unspecified osteoarthritis, unspecified site; M48.00 Spinal stenosis, site unspecified; D50.9 Iron deficiency anemia, unspecified; Z79.899 Other long term (current) drug therapy; Z79.51 Long term (current) use of inhaled steroids; Z88.8 Allergy status to other drugs, medicaments and biological substances; Z91.018 Allergy to other foods; Z91.048 Other nonmedicinal substance allergy status; Z87.891 Personal history of nicotine dependence; I25.2 Old myocardial infarction; Z92.21 Personal history of antineoplastic chemotherapy; Z92.3 Personal history of irradiation; Z99.81 Dependence on supplemental oxygen; Z28.21 Immunization not carried out because of patient refusal; Z85.118 Personal history of other malignant neoplasm of bronchus and lung
CPT/HCPCS: 36415; 71046; 71275; 80048; 80053; 81003; 82803; 83605; 83735; 83880; 84484; 85025; 85730; 86140; 87040; 87070; 87077; 87186; 87205; 87899; 93005; 94640; 96365; 96375; 99284; A9270-GY; J0692; J0696; J1650; J2405; J2930; J3535; J7512; Q9967

== ENCOUNTER 2021-12-28 11:53 | Inpatient (IN) ==
[2021-12-28] MEDS ORDERED: Albuterol HFA INHALER 8 gm MDI INH ONE (12:30)
[2021-12-28 12:51] LABS: ABS Lymphocytes 0.4 10^3/ul (1.0-4.8); ABS Monocytes 0.4 10^3/ul (0-0.8); ABS Neutrophils 4.9 10^3/ul (1.5-7.7); Eosinophil % 0.3 %; Hematocrit 28 % (35-47); Hemoglobin 9.2 g/dL (12.0-16.0); Lymphocyte % 7.4 %; Mean Corpuscular HGB Conc 33 g/dL (31-36); Mean Corpuscular Hemoglobin 27 pg (27-31); Mean Corpuscular Volume 81 fL (80-97); Mean Platelet Volume 7.7 fL (7.4-10.4); Platelet Count 230 10^3/uL (150-450); Red Blood Count 3.41 10^6 /uL (3.70-4.87); Red Cell Distribution Width 16 % (10-15); White Blood Count 5.7 10^3/uL (3.5-10.8)
[2021-12-28 13:09] LABS: Albumin 3.2 g/dL (3.2-5.2); Calcium 8.4 mg/dL (8.6-10.3); Globulin 3.3 g/dL (2-4); Potassium 3.9 mmol/L (3.5-5.0); Total Bilirubin 0.3 mg/dL (0.2-1.0); Total Protein 6.5 g/dL (6.4-8.9); eGFR CKD-EPI 92.1 (>60)
[2021-12-28] MEDS ORDERED: methylPREDNISolone SOD 40 mg/ml 1 ml VIAL IV ONE (18:13)
[2021-12-28] MEDS ORDERED: Albuterol/Ipratropium NEB.SOL (2.5/0.5 MG) 3 ML NEB.SOLN INH ONE (18:14)
[2021-12-28] MEDS ORDERED: Remdesivir 100 mg Vial 200 MG in NS 0.9% 250 ml 210 ML IV ONE (18:16)
[2021-12-28 18:41] LABS: PCO2 Arterial 46 mmHg (35-45); PO2 Arterial 89 mmHg (80-100)
[2021-12-28] MEDS ORDERED: Albuterol 2.5mg/3 ml (0.083%) NEB.SOLN INH PRN (18:47)
[2021-12-28] MEDS ORDERED: Albuterol HFA INHALER 8 gm MDI INH PRN (18:47)
[2021-12-28 19:38] LABS: INR 1.27 (0.86-1.15)
[2021-12-28 20:04] LABS: Albumin 3.2 g/dL (3.2-5.2); Calcium 8.3 mg/dL (8.6-10.3); Potassium 3.7 mmol/L (3.5-5.0); Total Protein 6.6 g/dL (6.4-8.9); eGFR CKD-EPI 94.7 (>60)
[2021-12-28 20:05] LABS: Albumin/Globulin Ratio 0.9 (1-3); Globulin 3.4 g/dL (2-4); Total Bilirubin 0.3 mg/dL (0.2-1.0)
[2021-12-28] MEDS ORDERED: CALCIUM CARBONATE 600 MG PO SCH (21:00)
[2021-12-28] MEDS: methylPREDNISolone SOD 40 mg/ml 1 ml VIAL IV SCH (21:58)
[2021-12-28] MEDS: Enoxaparin 40 MG/0.4 ML SYR SUBCUT SCH (22:25)
[2021-12-28] MEDS: Albuterol/Ipratropium NEB.SOL (2.5/0.5 MG) 3 ML NEB.SOLN INH SCH (23:22)
[2021-12-29] MEDS: methylPREDNISolone SOD 40 mg/ml 1 ml VIAL IV SCH (03:08)
[2021-12-29] MEDS ORDERED: methylPREDNISolone SOD 40 mg/ml 1 ml VIAL IV SCH (06:00)
[2021-12-29 06:12] LABS: ABS Lymphocytes 0.2 10^3/ul (1.0-4.8); ABS Monocytes 0.1 10^3/ul (0-0.8); ABS Neutrophils 5.3 10^3/ul (1.5-7.7); Hematocrit 32 % (35-47); Hemoglobin 10.7 g/dL (12.0-16.0); Lymphocyte % 4.3 %; Mean Corpuscular HGB Conc 33 g/dL (31-36); Mean Corpuscular Hemoglobin 27 pg (27-31); Mean Corpuscular Volume 81 fL (80-97); Platelet Count 272 10^3/uL (150-450); Red Blood Count 3.99 10^6 /uL (3.70-4.87); Red Cell Distribution Width 16 % (10-15); White Blood Count 5.7 10^3/uL (3.5-10.8)
[2021-12-29 06:22] LABS: INR 1.22 (0.86-1.15)
[2021-12-29 06:24] LABS: Albumin 3.7 g/dL (3.2-5.2); Calcium 8.8 mg/dL (8.6-10.3); Potassium 3.6 mmol/L (3.5-5.0); Total Bilirubin 0.3 mg/dL (0.2-1.0)
[2021-12-29 06:30] LABS: Albumin/Globulin Ratio 0.9 (1-3); Globulin 4.1 g/dL (2-4); Total Protein 7.8 g/dL (6.4-8.9); eGFR CKD-EPI 91.1 (>60)
[2021-12-29] MEDS: Albuterol/Ipratropium NEB.SOL (2.5/0.5 MG) 3 ML NEB.SOLN INH SCH ×2 (08:34→11:06)
[2021-12-29] MEDS: FLUTICAS/UMECLI/VILANT 200-62.5-25 MDI (NF) INH SCH (08:35)
[2021-12-29] MEDS: Multivitamins/Minerals TAB PO SCH (09:31)
[2021-12-29] MEDS: Calcium (OSCAL) 500 mg TAB PO SCH ×2 (09:32→21:13)
[2021-12-29] MEDS: Fluticasone NASAL SPRAY 50MCG 16 gm SPRAY BTL INTRANASAL SCH (09:32)
[2021-12-29] MEDS: NFT: Multivitamins/Mins AREDS2 (NF) CAP PO SCH ×2 (09:38→21:19)
[2021-12-29] MEDS: oxyCODONE SR 10 mg TAB PO PRN (09:42)
[2021-12-29] MEDS ORDERED: Iodixanol (CONTRAST) 320 MG/ML 100 ML SDV IV ONE (12:14)
[2021-12-29] MEDS: Lidocaine PATCH 5% PATCH TRANSDERM SCH (12:29)
[2021-12-29] MEDS: oxyCODONE/Acetamin 5/325 mg TAB PO PRN ×2 (12:29→21:11)
[2021-12-29] MEDS ORDERED: Albuterol HFA INHALER 8 gm MDI INH SCH (19:00)
[2021-12-29] MEDS: Enoxaparin 40 MG/0.4 ML SYR SUBCUT SCH (21:10)
[2021-12-29] MEDS: Lidocaine Patch REMOVE NOTE PATCH OFF SCH (21:20)
[2021-12-29] MEDS: Remdesivir 100 mg Vial 100 MG in NS 0.9% 250 ml 230 ML IV SCH (22:44)
[2021-12-30] MEDS: oxyCODONE/Acetamin 5/325 mg TAB PO PRN ×3 (03:38→20:05)
[2021-12-30] MEDS: oxyCODONE SR 10 mg TAB PO PRN ×2 (03:39→16:20)
[2021-12-30] MEDS: FLUTICAS/UMECLI/VILANT 200-62.5-25 MDI (NF) INH SCH (07:36)
[2021-12-30] MEDS: Albuterol HFA INHALER 8 gm MDI INH SCH ×4 (07:39→19:47)
[2021-12-30 07:42] LABS: INR 1.24 (0.86-1.15)
[2021-12-30 07:52] LABS: Albumin 3.4 g/dL (3.2-5.2); Albumin/Globulin Ratio 0.9 (1-3); Calcium 9.4 mg/dL (8.6-10.3); Potassium 4.6 mmol/L (3.5-5.0); Total Bilirubin 0.3 mg/dL (0.2-1.0); Total Protein 7.4 g/dL (6.4-8.9)
[2021-12-30] MEDS: Multivitamins/Minerals TAB PO SCH (08:39)
[2021-12-30] MEDS: Calcium (OSCAL) 500 mg TAB PO SCH ×2 (08:40→20:05)
[2021-12-30] MEDS: Lidocaine PATCH 5% PATCH TRANSDERM SCH (08:49)
[2021-12-30] MEDS: NFT: Multivitamins/Mins AREDS2 (NF) CAP PO SCH ×2 (08:49→20:10)
[2021-12-30] MEDS: Fluticasone NASAL SPRAY 50MCG 16 gm SPRAY BTL INTRANASAL SCH (08:50)
[2021-12-30] MEDS: Benzocaine/Menthol LOZ PO PRN (16:21)
[2021-12-30] MEDS: Enoxaparin 40 MG/0.4 ML SYR SUBCUT SCH (20:00)
[2021-12-30] MEDS: Lidocaine Patch REMOVE NOTE PATCH OFF SCH (20:10)
[2021-12-30] MEDS: Remdesivir 100 mg Vial 100 MG in NS 0.9% 250 ml 230 ML IV SCH (20:11)
[2021-12-31] MEDS: Benzocaine/Menthol LOZ PO PRN ×3 (01:58→22:53)
[2021-12-31] MEDS: FLUTICAS/UMECLI/VILANT 200-62.5-25 MDI (NF) INH SCH (07:40)
[2021-12-31] MEDS: Albuterol HFA INHALER 8 gm MDI INH SCH ×4 (07:40→19:35)
[2021-12-31 08:20] LABS: Albumin 3.3 g/dL (3.2-5.2); Albumin/Globulin Ratio 0.8 (1-3); Calcium 9.4 mg/dL (8.6-10.3); Globulin 3.9 g/dL (2-4); INR 1.24 (0.86-1.15); Total Bilirubin 0.3 mg/dL (0.2-1.0); Total Protein 7.2 g/dL (6.4-8.9); eGFR CKD-EPI 90.8 (>60)
[2021-12-31] MEDS: Multivitamins/Minerals TAB PO SCH (09:15)
[2021-12-31] MEDS: Lidocaine PATCH 5% PATCH TRANSDERM SCH (09:15)
[2021-12-31] MEDS: Calcium (OSCAL) 500 mg TAB PO SCH ×2 (09:16→20:36)
[2021-12-31] MEDS: Fluticasone NASAL SPRAY 50MCG 16 gm SPRAY BTL INTRANASAL SCH (09:16)
[2021-12-31] MEDS: NFT: Multivitamins/Mins AREDS2 (NF) CAP PO SCH ×2 (09:40→20:47)
[2021-12-31] MEDS: oxyCODONE SR 10 mg TAB PO PRN (10:52)
[2021-12-31] MEDS: Nystatin SUSPENSION 100,000 UNITS/ML UDC PO SCH ×3 (15:30→20:47)
[2021-12-31] MEDS: oxyCODONE/Acetamin 5/325 mg TAB PO PRN ×2 (15:34→22:55)
[2021-12-31] MEDS: Enoxaparin 40 MG/0.4 ML SYR SUBCUT SCH (20:43)
[2021-12-31] MEDS: Lidocaine Patch REMOVE NOTE PATCH OFF SCH (20:45)
[2021-12-31] MEDS: Remdesivir 100 mg Vial 100 MG in NS 0.9% 250 ml 230 ML IV SCH (20:52)
[2021-12-31] MEDS: oxyCODONE SR 10 mg TAB PO SCH (22:55)
[2022-01-01 06:55] LABS: ABS Lymphocytes 0.8 10^3/ul (1.0-4.8); ABS Monocytes 0.5 10^3/ul (0-0.8); ABS Neutrophils 10.9 10^3/ul (1.5-7.7); Hematocrit 31 % (35-47); Hemoglobin 10.3 g/dL (12.0-16.0); Lymphocyte % 6.7 %; Mean Corpuscular HGB Conc 33 g/dL (31-36); Mean Corpuscular Hemoglobin 27 pg (27-31); Mean Corpuscular Volume 81 fL (80-97); Mean Platelet Volume 8.3 fL (7.4-10.4); Platelet Count 363 10^3/uL (150-450); Red Blood Count 3.86 10^6 /uL (3.70-4.87); Red Cell Distribution Width 16 % (10-15); White Blood Count 12.2 10^3/uL (3.5-10.8)
[2022-01-01 06:56] LABS: INR 1.2 (0.86-1.15)
[2022-01-01 07:10] LABS: Albumin 3.4 g/dL (3.2-5.2); Albumin/Globulin Ratio 0.9 (1-3); Calcium 9.1 mg/dL (8.6-10.3); Potassium 4.1 mmol/L (3.5-5.0); Total Bilirubin 0.3 mg/dL (0.2-1.0); Total Protein 7.4 g/dL (6.4-8.9); eGFR CKD-EPI 90.1 (>60)
[2022-01-01] MEDS: Albuterol HFA INHALER 8 gm MDI INH SCH ×4 (08:06→19:32)
[2022-01-01] MEDS: FLUTICAS/UMECLI/VILANT 200-62.5-25 MDI (NF) INH SCH (08:07)
[2022-01-01] MEDS: Multivitamins/Minerals TAB PO SCH (08:17)
[2022-01-01] MEDS: Calcium (OSCAL) 500 mg TAB PO SCH ×2 (08:17→19:51)
[2022-01-01] MEDS: Nystatin SUSPENSION 100,000 UNITS/ML UDC PO SCH ×4 (08:19→19:52)
[2022-01-01] MEDS: Senna TAB 8.6 mg TAB PO PRN (08:19)
[2022-01-01] MEDS: Lidocaine PATCH 5% PATCH TRANSDERM SCH (08:19)
[2022-01-01] MEDS: Benzocaine/Menthol LOZ PO PRN ×2 (08:19→19:52)
[2022-01-01] MEDS: Fluticasone NASAL SPRAY 50MCG 16 gm SPRAY BTL INTRANASAL SCH (08:19)
[2022-01-01] MEDS: NFT: Multivitamins/Mins AREDS2 (NF) CAP PO SCH ×2 (08:20→19:52)
[2022-01-01] MEDS: oxyCODONE SR 10 mg TAB PO SCH ×2 (11:18→22:34)
[2022-01-01] MEDS: oxyCODONE/Acetamin 5/325 mg TAB PO PRN (19:51)
[2022-01-01] MEDS: Enoxaparin 40 MG/0.4 ML SYR SUBCUT SCH (19:55)
[2022-01-01] MEDS: Remdesivir 100 mg Vial 100 MG in NS 0.9% 250 ml 230 ML IV SCH (22:34)
[2022-01-01] MEDS: Lidocaine Patch REMOVE NOTE PATCH OFF SCH (22:34)
[2022-01-02 05:37] LABS: INR 1.19 (0.86-1.15)
[2022-01-02 05:50] LABS: Albumin 3.4 g/dL (3.2-5.2); Calcium 9.2 mg/dL (8.6-10.3); Globulin 3.9 g/dL (2-4); Potassium 3.8 mmol/L (3.5-5.0); Total Protein 7.3 g/dL (6.4-8.9); eGFR CKD-EPI 91.1 (>60)
[2022-01-02 05:51] LABS: Albumin/Globulin Ratio 0.9 (1-3); Total Bilirubin 0.4 mg/dL (0.2-1.0)
[2022-01-02] MEDS: Albuterol HFA INHALER 8 gm MDI INH SCH ×3 (08:02→15:14)
[2022-01-02] MEDS: FLUTICAS/UMECLI/VILANT 200-62.5-25 MDI (NF) INH SCH (08:03)
[2022-01-02] MEDS: Nystatin SUSPENSION 100,000 UNITS/ML UDC PO SCH ×2 (09:35→13:31)
[2022-01-02] MEDS: Calcium (OSCAL) 500 mg TAB PO SCH (09:37)
[2022-01-02] MEDS: Multivitamins/Minerals TAB PO SCH (09:37)
[2022-01-02] MEDS: Lidocaine PATCH 5% PATCH TRANSDERM SCH (09:38)
[2022-01-02] MEDS: Fluticasone NASAL SPRAY 50MCG 16 gm SPRAY BTL INTRANASAL SCH (09:38)
[2022-01-02] MEDS: NFT: Multivitamins/Mins AREDS2 (NF) CAP PO SCH (09:42)
[2022-01-02] MEDS: Senna TAB 8.6 mg TAB PO PRN (09:48)
[2022-01-02] MEDS: oxyCODONE SR 10 mg TAB PO SCH (11:34)
[2022-01-02 15:27] VITALS: BP 115/52
== END 2022-01-02 16:40 | disposition home or self-care (01) | DRG 177 ==
LOC: ED 11:53 → SUATTDRO 20:04 → EDHOLD 20:04 → MED 23:04
PROVIDERS: ADMIT Physician Assistant; ATTEND Internal Medicine